=== PATIENT | female | born 1985 | race Caucasian/White ===

== ENCOUNTER 2021-05-23 16:13 | Emergency (ER) | payer OTHER, SELFPAY ==
[2021-05-23 16:45] VITALS: BP 158/102; PULSE 77; RESP 16; TEMP 36.9; O2SAT 97; BMI 22.3
[2021-05-23 16:50] LABS: Apearance,Urine Clear (Clear); Bilirubin,Urine Negative (Negative); Blood, Urine 1+ (Negative); Color,Urine Yellow (Yellow); Glucose,Urine (UA) Negative (Negative); Ketones,Urine Negative (Negative); Protein,Urine Negative (Negative); UTC Leukocyte Esterase,Urine Negative (Negative); UTC Nitrate,Urine Negative (Negative); Urobilinogen,Urine 1 EU/dl (0.2)
--- NOTE | 2021-05-23 17:36 | HMH.EDUTC ---
[facility] Disposition Clinical Impression: Dysuria, Status post Disposition: Home, Self-Care Condition on Discharge: Good Instructions: DI for Dysuria -- Adult Additional Instructions: Drink plenty of fluids. Lots of fluids. Notify your ob doctor about your urine results. Follow up with your primary care physician. Follow up with your MECHANICAL DEVELOPMENT ENGINEER doctor. You could call medical records here at [facility] and have them fax your urine results to your doctor in [place]. Their phone number is [phone]. GO TO THE ER FOR ANY WORSENING SYMPTOMS OR CONCERNS Referrals: Provider,Referral, [Primary Care Provider] - Time of Disposition: 17:48 Medical Decision Making - Medical Records Medical records reviewed: No: I reviewed the patient's medical records. - Hoang Inquiry Pt receiving controlled substance: No Vital Signs: 05/23/21 16:45 Temperature 98.5 F Temperature Source Oral Pulse Rate [Left] 77 Respiratory Rate 16 Blood Pressure [Right Arm] 158/102 H Blood Pressure Mean [Right Arm] 120 02 Sat by Pulse Oximetry 97 - Lab Data Lab results reviewed: Yes: I reviewed the patient's lab results. Lab Results 05/23/21 16:49: Urine Color Yellow, Urine Appearance Clear, Urine pH 7.0, Ur Specific Fifty Six 1.020, Urine Protein Negative, Urine Glucose (UA) Negative, Urine Ketones Negative, Urine Blood 1+, Urine Nitrate Negative, Urine Bilirubin Negative, Urine Urobilinogen 1, Ur Leukocyte Esterase Negative [facility] HPI - General Stated complaint: possible UTI Time Seen by Provider: 05/23/21 17:37 Mode of Arrival: Ambulatory Source of Information: Patient Limitations: No Limitations Description of Symptoms (Recalled from Triage Doc. by RN): pt c/o burning with urination. pt is 2 weeks post csection. HEENT Symptoms (Recalled from RN notes): No Resp Symptoms (Recalled from RN notes): No Skin Symptoms (Recalled from RN notes): No MS Symptoms (Recalled from RN notes): No Functional Status (Recalled from RN notes): na - History of Present Illness Provider Complaint: She is here with complaints of feeling like she might have a UTI. She had a 1 week ago. She has been doing good, but since this morning she has had some burning when she gets through urinating. She denies any fever/chills/back pain. She denies any other complaints. She had called her ob doctor and they had suggested for her to come have a urinalysis here instead of driving all the way back to [place] today and it turning out to be a UTI. - Related Data Allergies Allergy/AdvReac Type Severity Reaction Status Date / Time albuterol Allergy Verified 05/23/21 16:49 - Worker's Comp Is this a Worker's Comp case?: No [facility] History - Hepatitis A Screen Drug use history?: No High risk sexual behaviors?: No History of sexually transmitted infection?: No Currently employed?: No Childcare worker?: No Do you have indoor plumbing?: Yes Do you have electricity?: Yes Attestation statement:: This patient has been screened for Hepatitis A risk factors. I have reviewed the patient's past medical history: Yes ROS Obtained: Yes All systems reviewed & no additional complaints - Constitutional Constitutional: Denies chills, Denies fever(s), Denies poor appetite, Denies malaise - ENT Ears, Nose, Mouth, and Throat: Denies sore throat - Cardiovascular Cardiovascular: Denies chest pain - Respiratory Respiratory: Denies chest congestion, Denies cough, Denies dyspnea, Denies stridor, Denies wheezing - Gastrointestinal Gastrointestingal: Denies: abdominal pain, diarrhea, nausea, vomiting - Genitourinary Female Genitourinary: Reports dysuria, Denies urinary frequency, Denies urinary incontinence, Denies urinary hesitancy, Denies urinary urgency - Musculoskeletal Musculoskeletal: Denies back pain - Integumentary/Breasts Skin/Breast: Denies rash - Neurologic Neurologic: Denies tingling/numbness/b
[2021-05-23 17:52] VITALS: BP 143/97; PULSE 75; RESP 18; TEMP 36.9
== END 2021-05-23 17:57 | disposition home or self-care (01) ==
PROVIDERS: Emergency Provider Nurse Practitioner Family
DX: R30.0 Dysuria (principal)
CPT/HCPCS: 81003; 99202; G0463

== ENCOUNTER 2022-07-03 08:14 | Emergency (ER) | payer BC, SELFPAY ==
--- NOTE | 2022-07-03 09:15 | EXP.UTC ---
Discharge Plan Disposition Patient Disposition: Home, Self-Care Condition: Good Prescriptions Prescriptions: New azithromycin [Zithromax] 250 mg tablet 250 mg PO UD DOSE PK Qty: 6 0RF Rx Instructions: Take two (2) tablets today, then one (1) tablet days #2 thru #5 benzonatate [benzonatate] 100 mg capsule 100 mg PO TIDP PRN (Reason: Cough) Qty: 30 0RF methylprednisolone 4 mg Tablets,Dose Pack 4 mg PO DIRECTED Qty: 21 0RF Referrals Follow up/Referrals: Sandor Roe MD [Primary Care Provider] - See instructions Activity Restrictions/Add. Instructions Additional Instructions/Restrictions: Drink plenty of fluids. Take tylenol or ibuprofen for pain or fever. Take the medications as directed. Follow up with your regular doctor. GO TO THE ER FOR ANY WORSENING SYMPTOMS Clinical Impressions Clinical Impression: Sinusitis, Acute bronchitis, Viral syndrome Stand Alone Forms Stand Alone Forms: Work/School Release Instructions Patient Instructions: Acute Bronchitis, DI for Sinusitis, DI for Viral Syndrome Discharge ED Provider: Homero Reese [facility] General Stated complaint: Cough, sore throat, congestion, BA Time Seen by Provider: 07/03/22 09:15 History of Present Illness Provider Complaint: She states that for the past 3 days she has had a worsening sore throat, sinus congestion, bilateral ear pain and a cough. She has had a low grade fever and chills also. Related Data Previous Rx's Medication Instructions Recorded azithromycin 250 mg tablet 250 mg PO UD DOSE PK #6 tabs 07/03/22 (Zithromax) benzonatate 100 mg capsule 100 mg PO TIDP PRN Cough #30 caps 07/03/22 methylprednisolone 4 mg tablets in 4 mg PO DIRECTED #21 tabs 07/03/22 a dose pack Allergies Allergy/AdvReac Type Severity Reaction Status Date / Time albuterol Allergy Verified 05/23/21 16:49 [facility] Social History Smoking Status: Never smoker alcohol intake: never current occupational status: employed Travel in the last 8 weeks: None ROS Obtained: Yes All systems reviewed & no additional complaints except as documented Constitutional Constitutional: Reports chills and Reports fever(s) Eyes Eyes: Denies eye discharge ENT Ears, Nose, Mouth, and Throat: Reports as per HPI Cardiovascular Cardiovascular: Denies chest pain Respiratory Respiratory: Denies chest congestion and Reports cough Gastrointestinal Gastrointestingal: Reports nausea; Denies abdominal pain, constipation, cramping, diarrhea or vomiting Musculoskeletal Musculoskeletal: Denies arthralgias Integumentary/Breasts Skin/Breast: Denies rash Neurologic Neurologic: Denies paresthesias Physical Exam General General appearance: alert and in no apparent distress Head Head exam: atraumatic, normocephalic and normal inspection Eye Eye exam: Present normal appearance, PERRL and EOMI ENT ENT exam: Present normal exam, normal oropharynx, mucous membranes moist, TM's normal bilaterally and normal external ear exam Neck Neck exam: Present normal inspection, full ROM and trachea midline; Absent meningismus or lymphadenopathy Chest Chest inspection: Present normal inspection and symmetric chest wall rise; Absent tenderness Respiratory Respiratory exam: Present normal lung sounds bilaterally; Absent respiratory distress Cardiovascular Cardiovascular exam: Present regular rate and normal rhythm; Absent JVD Abdominal Exam Abdominal exam: Present soft and normal bowel sounds; Absent distention, tenderness or guarding Extremities Exam Extremities exam: Present normal inspection, full ROM and normal capillary refill; Absent calf tenderness Back Exam Back exam: Present normal inspection; Absent tenderness Neurological Exam Neurological exam: Present alert and oriented X3 Psychiatric Psychiatric exam: Present normal affect and normal mood Skin Skin exam: Present warm, dry, intact and
[2022-07-03 09:38] VITALS: BP 158/92; PULSE 84; RESP 18; TEMP 37.3; O2SAT 97; BMI 35.7
[2022-07-03 09:41] VITALS: BP 158/92; PULSE 84; RESP 18; TEMP 37.3
[2022-07-03 09:42] LABS: UTC Influenza A Antigen Negative (Negative); UTC Strep Screen (Rapid) Negative (Negative)
[2022-07-03 09:43] LABS: UTC Influenza B Antigen Negative (Negative)
[2022-07-03 09:49] LABS: Adenovirus,PCR Not Detected (NotDetected); Bordetella Pertussis Not Detected (NotDetected); Chlamydophila Pneumoniae, PCR Not Detected (NotDetected); Coronavirus 19, PCR Not Detected (NotDetected); Coronavirus 229E Not Detected (NotDetected); Coronavirus NL63 Not Detected (NotDetected); Coronavirus OC43 Not Detected (NotDetected); Coronovirus HKU1,PCR Not Detected (NotDetected); Human Metapneumovirus Not Detected (NotDetected); Influenza A, PCR Not Detected (NotDetected); Influenza AH1, 2009 Not Detected (NotDetected); Influenza AH1, PCR Not Detected (NotDetected); Influenza AH3,PCR Not Detected (NotDetected); Influenza B, PCR Not Detected (NotDetected); Mycoplasma Pneumoniae, PCR Not Detected (NotDetected); Parainfluenza 1, PCR Not Detected (NotDetected); Parainfluenza 2, PCR Not Detected (NotDetected); Parainfluenza 3, PCR Not Detected (NotDetected); Parainfluenza 4, PCR Not Detected (NotDetected); Respiratory Syncytial Virus Not Detected (NotDetected)
[2022-07-03 16:52] LABS: Rhinovirus/Enterovirus Detected (NotDetected)
== END 2022-07-03 09:46 | disposition home or self-care (01) ==
PROVIDERS: Emergency Provider Nurse Practitioner Family; PCP Family Medicine
DX: J20.9 Acute bronchitis, unspecified (principal); J32.9 Chronic sinusitis, unspecified; B34.9 Viral infection, unspecified
CPT/HCPCS: 87581; 87632; 87798; 87804; 87880; 99212; C9803; G0463; U0003; U0005

== ENCOUNTER → 2023-02-05 09:55 | Outpatient (POV) | payer BC, SELFPAY | PROVIDERS: Visit Provider Dermatology | DX: Z00.00 Encounter for general adult medical examination without abnormal findings (principal) ==

== ENCOUNTER → 2023-03-06 08:58 | Outpatient (CLI) | payer OTHER, SELFPAY ==
[2023-03-06 09:39] LABS: Iron 53 ug/dL (37-170)
[2023-03-06 09:48] LABS: Total Iron Binding Capacity 345 ug/dL (265-497)
[2023-03-06 10:15] LABS: Ferritin 86.6 ng/ml (6.24-137)
== END ==
PROVIDERS: Visit Provider Nurse Practitioner Family
DX: E83.10 Disorder of iron metabolism, unspecified (principal)
CPT/HCPCS: 36415; 82728; 83540; 83550; G0399

== ENCOUNTER → 2023-03-19 11:15 | Outpatient (CLI) | payer OTHER, SELFPAY | PROVIDERS: PCP Nurse Practitioner; Visit Provider Nurse Practitioner | DX: R30.0 Dysuria (principal); B96.29 Other Escherichia coli [E. coli] as the cause of diseases classified elsewhere; B96.89 Other specified bacterial agents as the cause of diseases classified elsewhere | CPT/HCPCS: 87086; 87088; 87186 ==

== ENCOUNTER 2023-04-14 13:35 | Emergency (ER) | payer OTHER, SELFPAY ==
[2023-04-14 13:37] VITALS: BP 128/85; PULSE 79; RESP 18; TEMP 37.1; O2SAT 98; BMI 48.2
--- NOTE | 2023-04-14 14:40 | XR_ITS ---
PROCEDURE INFORMATION: Exam: XR Right Ankle Exam date and time: 04/14/2023 2:49 PM Age: 38 years old Clinical indication: Injury or trauma; Fall; Blunt trauma; Ankle; Right TECHNIQUE: Imaging protocol: Radiologic exam of the right ankle. Views: 3 or more views. COMPARISON: No relevant prior studies available. FINDINGS: Bones/joints: Osseous structures are intact. No fracture or malalignment. Visualized joint surfaces are preserved. Soft tissues: Unremarkable. IMPRESSION: Negative exam. No acute bony abnormalities.
--- NOTE | 2023-04-14 14:41 | PC.NURSE ---
Rounded on patient in lobby
--- NOTE | 2023-04-14 15:56 | HMH.EDGENADL ---
Discharge Plan Disposition Patient Disposition: Home, Self-Care Condition: Good Prescriptions Prescriptions: No Action Galzin 50 mg (zinc) capsule 50 mg PO DAILY PNV #[id number] 30 mg iron-10 mg iron-1 mg capsule See Rx Instructions PO .COMPLEX Rx Instructions: one a day orally; cholecalciferol (vitamin D3) 125 mcg (5,000 unit) capsule 125 mcg PO DAILY ascorbic acid (vitamin C) 1,000 mg capsule 1 g PO DAILY fluoxetine 10 mg capsule 10 mg PO DAILY bupropion HCl 300 mg tablet extended release 24 hr 300 mg PO DAILY Patient Comments: TAKE 1 TABLET BY MOUTH EVERY DAY IN THE MORNING FOR 30 DAYS Flonase Sensimist 27.5 mcg/actuation spray,suspension 2 spray intranasal DAILY Rx Instructions: into each nostril Zyrtec 10 mg capsule 10 mg PO DAILY PRN fluoxetine [Prozac] 20 mg capsule 10 mg PO DAILY Referrals Follow up/Referrals: Provider,Referral, MD [Primary Care Provider] - See instructions Clinical Impressions Clinical Impression: Ankle sprain Qualifiers: Encounter type: initial encounter Involved ligament of ankle: unspecified ligament Laterality: right Qualified Code(s): S93.401A - Sprain of unspecified ligament of right ankle, initial encounter Instructions Patient Instructions: DI for Ankle Sprain Discharge ED Provider: Sacha Sheihk Adult HPI General Chief complaint: Extremity Injury, Lower Stated complaint: AO [id number] right ankle injury,home Time Seen by Provider: 04/14/23 15:56 Mode of Arrival: Wheelchair Source of Information: Patient Limitations: No Limitations Description of Symptoms (Recalled from ER Triage Doc. by RN): Presents ot ED with c/o right ankle pain since this morning after sustaining a fall @ approx 1130. Patient reports taking 400mg of Ibuprofen @ 1145 with no relief. Notable swelling to ankle +PMS History of Present Illness HPI narrative: Patient presents for evaluation of acute onset ankle pain, moderate in severity, nonradiating, after mechanical fall from standing, no injury elsewhere, previous therapies include ibuprofen. Patient has had difficulty bearing weight since then. No distal numbness or tingling. No pain elsewhere. No chronic medical issues or other daily medications. Injury is closed. Related Data Home Medications Medication Instructions Recorded Confirmed ascorbic acid (vitamin C) 1,000 mg 1 g PO DAILY 02/21/23 04/04/23 capsule cholecalciferol (vitamin D3) 125 125 mcg PO DAILY 02/21/23 04/04/23 mcg (5,000 unit) capsule vitamin#30 30 mg iron-10 See Rx Instructions PO .COMPLEX 02/21/23 04/04/23 mg iron-folic acid 1 mg-omg3 capsule zinc acetate 50 mg (zinc) capsule 50 mg PO DAILY 02/21/23 04/04/23 (Galzin) cetirizine 10 mg capsule (Zyrtec) 10 mg PO DAILY PRN 03/19/23 04/04/23 fluticasone furoate 27.5 2 spray intranasal DAILY 03/19/23 04/04/23 mcg/actuation nasal spray,suspension (Flonase Sensimist) bupropion HCl 300 mg 24 hr tablet, 300 mg PO DAILY 04/04/23 04/04/23 extended release fluoxetine 10 mg capsule 10 mg PO DAILY 04/04/23 04/04/23 fluoxetine 20 mg capsule (Prozac) 10 mg PO DAILY 04/04/23 04/04/23 Allergies Allergy/AdvReac Type Severity Reaction Status Date / Time albuterol Allergy Verified 04/04/23 14:02 [facility] Disclaimer: The information contained in this section may have been updated after the patient was seen, as this information can be updated by other users. Family History Other Alcoholism Cancer Thyroid disorder Social History Smoking Status: Never smoker alcohol intake: never substance use type: denies use current occupational status: unemployed Travel in the last 8 weeks: None household members: spouse housing: house marital status: ROS Obtained
[2023-04-14 16:15] VITALS: BP 128/85; PULSE 79; RESP 18; TEMP 37.1; O2SAT 98
== END 2023-04-14 16:15 | disposition home or self-care (01) ==
PROVIDERS: Emergency Provider Emergency Medicine
DX: S93.401A Sprain of unspecified ligament of right ankle, initial encounter (principal); W18.30XA Fall on same level, unspecified, initial encounter
CPT/HCPCS: 73610; 99283

== ENCOUNTER → 2023-06-12 15:10 | Outpatient (CLI) | payer OTHER, SELFPAY ==
[2023-06-12 18:48] LABS: Coronavirus 19, PCR Not Detected (NotDetected); Influenza A, PCR Not Detected (NotDetected); Influenza B, PCR Not Detected (NotDetected)
[2023-06-12 18:55] LABS: Basophils % 0.6 % (0.1-2.0); Eosinophils # 0.1 K/mm3 (0.0-0.4); Eosinophils % 1.8 % (0.1-12.0); Hemoglobin 13.4 g/dL (12.2-16.2); Lymphocytes # 2.6 K/mm3 (0.7-4.5); Lymphocytes % 40.5 % (10-50); Mean Corpuscular HGB Conc 34.4 g/dL (31.8-35.4); Mean Corpuscular Hemoglobin 30.4 pg (27.0-31.2); Mean Corpuscular Volume 88.2 fl (81-99); Mean Platelet Volume 9.8 fl (7.4-10.4); Monocytes # 0.3 K/mm3 (0.1-1.0); Monocytes % 4.7 % (1.7-9.3); Neutrophils # 3.4 K/mm3 (1.8-7.8); Neutrophils % 52.4 % (37.0-80.0); Platelet Count 166 K/mm3 (142-424); Red Blood Count 4.42 M/mm3 (4.20-5.40); Red Cell Distribution Width 14.9 % (11.5-17.5); White Blood Count 6.5 K/mm3 (4.8-10.8)
[2023-06-12 19:25] LABS: Anion Gap 11.3 mEq/L (5-15); Blood Urea Nitrogen 13 mg/dl (7-17); Calcium 9.1 mg/dl (8.4-10.2); Carbon Dioxide 27 mmol/L (22.0-30.0); Chloride 104 mmol/L (98-107); Estimated Glomerular Filt Rate 81 ml/min (>60); GFR (African American) 98 ML/MIN (>60); Glucose 98 mg/dl (74-100); Potassium 4.3 mmoL/L (3.5-5.1); Sodium 138 mmol/L (136-145)
== END ==
PROVIDERS: PCP Nurse Practitioner; Visit Provider Nurse Practitioner
DX: J06.9 Acute upper respiratory infection, unspecified (principal)
CPT/HCPCS: 80048; 85025; 87636

== ENCOUNTER 2025-03-30 12:52 | Outpatient (CLI) | payer OTHER, SELFPAY ==
--- OUTSIDE RECORDS SUMMARY | 2016-07-13 12:22 | XMS_ITS | Encounter Summary ---
Author Organization [facility] Address [address] [id number] Care Team Providers Care Trailer Body Assembler Name Role Phone Moon Jaquez MD Primary Care Provider [phone] Reason for Referral * Hospital - Outpatient (Routine) - Closed Specialty Diagnoses / Procedures Referred By Mahsaac t Referred To Contact Sleep Medicine Diagnoses Obstructive sleep apnea, adult Snoring Procedures Home Sleep Study David Feng MD [address] [place] [address] Phone: tel: fax: David Feng MD [address] [place] [address] Phone: tel: fax: Referral ID Status Reason Start Date Expiration Date Visits Re quested Visits Authorized [id number] Closed 07/13/2016 07/13/2017 1 1 Reason for Visit * Hospital - Outpatient (Routine) - Closed Specialty Diagnoses / Procedures Referred By Contac t Referred To Contact Sleep Medicine Diagnoses Obstructive sleep apnea, adult Snoring Procedures Home Sleep Study David Feng MD [address] [place] [address] Phone: tel: fax: David Feng MD [address] [place] [address] Phone: tel: fax: Referral ID Status Reason Start Date Expiration Date Visits Re quested Visits Authorized [id number] Closed 07/13/2016 07/13/2017 1 1 Encounter Details Date Type Department Care Team (Latest Contact Info) Description 07/13/2016 11:22 AM EST Hospital Encounter [facility] SLEEP [facility] [address] [facility] [address] [place] [id number] David Feng MD [address] [facility] [address] [place], [place] [id number] Obstructive sleep apnea, adult; Snoring Social History Tobacco Use Types Packs/Day Years Used Date Smoking Tobacco: Never Smokeless Tobacco: Never Comments:Is not around secon dhand smoke in house or car Alcohol Use Standard Drinks/Week Comments Not Currently 0 (1 standard drink = 0.6 oz pur e alcohol) Monument Depression Scale Answer Date Recorded [place] Depression Scale Total 2 05/18/2021 The thought of harming myself has occurred to me . 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 PREADMISSION T [address] [place] [address] 06/02/2025 12:00 PM EDT Hospital Encounter [facility] LABOR DELIVERY [address] [place] [address] Ilene Schultz MD [address] [facility] [address] [place] [address] 06/02/2025 12:00 PM EDT - 06/02/2025 1:00 PM EDT Surgery [facility]OR DELIVERY [address] [place] [address] Ilene Schultz MD [address] [place] [address] SECTION REPEAT WITH SALPINGECTOMY Scheduled Procedures Name Priority Associated Diagnoses Date/Ti me SECTION REPEAT WITH SALPINGECTOMY 06/02/2025 12:00 PM EDT documented as of this encounter Procedures Procedure Name Priority Date/Time Associated Diagnosis Comments WATCHPAT Routine 07/16/2016 8:15 AM EST Obstructive sleep apnea, adult Snoring documented in this encounter Results * WATCHPAT (07/16/2016 8:15 AM EST) Narrative David Feng MD - 08/06/2016 4:27 PM EST Home sleep test with watch Pat device report date of study: 07/14/2016 Patient: Fabiola Guerra date of : 1985 Referring: Dr. Moon Jaquez Clinical information patient is a 31-year-old female with a history of snoring and nonrestorative sleep. She has noted snoring. She occasionally kicks and jerks her legs at night. Blood pressure is 152/98 pulse 77 respirations 16 height 65 inches weight 324 pounds body mass index 53.9 she was morbidly obese she had nasal airway narrowing and Mallampati class II anatomy with significant tonsillar hypertrophy Methods: Patient had home sleep test with watch Pat device that measured peripheral arterial tonometry measured pulse and oxygen saturation measured activity and judged body position. Snoring was recorded. It was scored using standard techniques. Findings: Patient had a study time of 7 hours 45 minutes and sleep time of 6 hours 23 minutes. She did show evidence of REM sleep. Overall she had an AHI of 6.3. This is consistent with mild obstructive sleep apnea. She had oxygen desaturations only to 89%. Her mean pulse rate was 64. She had some snoring noted throughout the night. She slept supine the entire night. Assessment axis A: #1 mild obstructive sleep apnea [place] B: Home sleep test with watch Pat device [place] C: #1 morbid obesity #2 tonsillar hypertrophy #3 hypertension #4 history of leg movements Recommendations: #1 would continue consider a trial of CPAP such as AutoSet with an 8 cm minimum an 18 cm maximum #2 would encourage weight loss #3 would encourage patient avoid alcohol and sedatives close to bedtime #4 would encourage lateral position sleep #5 could consider an oral appliance in combination with weight loss and lateral position sleep #6 could consider surgical therapy if CPAP for oral appliances or not tolerated. #7 may need to consider medical therapy for periodic limb movement disorder. Follow-up: She is to follow-up in sleep clinic and she is to follow-up with Dr. Gisele Feng MD [facility] Sleep Medicine Pulmonary and Critical Care Medicine David Feng MD SLEEP CENTER ORDERABLES Final Re sult documented in this encounter Visit Diagnoses Diagnosis Obstructive sleep apnea, adult Snoring Other dyspnea and respiratory abnormality documented in this encounter Additional Health Concerns Infection Onset Date Last Indicated Resolved Time COVID Screen (preop/placement) 05/15/2021 05/15/2021 05/15/2021 4:02 PM EDT documented as of this encounter Care Teams Trailer Body Assembler Relationship Specialty Start Date End Date Moon Jaquez MD [address] [place] [address] PCP - General 06/10/15 04/02/21 documented as of this encounter
--- OUTSIDE RECORDS SUMMARY | 2021-12-05 05:00 | XMS_ITS | Continuity of Care Document ---
Author Organization [facility] o Address [address] [place] [address] Phone Care Team Providers Care Client Account Manager Name Role Phone Cheng Oakes MD Unavailable Unavailable Medications Medication Instructions Dosage Effective Dates (start - stop) Status Comments Medrol (Adan) 4 mg tablets in a dose pack take by Oral route once follow instructions on box Not Available - Active Procedures Procedure Date [facility] [place] X-ray exam lwr spine, min 4 views Advance Directives Directive Yes / No Effective Date File Name No Information Encounters Encounter Description Practice Location Reason(s) For Visit Diagnoses Date Provider Providers Copied on Encounter Office/outpat ient visit[place], [facility] [place], [address] [facility] [place], [address], tel:[phone] [facility] Segmental and somatic dysfunction of sacral region 2 Champ Anand. Jared E [facility] [place], [id number] , [place]. [phone] Referring Provider: Cheng Serrato, [place], [address] . tel:[phone] Family History Family Member Type Diagnosis Age At Onset Mother Problem (finding) Hypertension Brother Problem (finding) Depression Mother Problem (finding) Cancer Mother Problem (finding) Depression Payers Payer name Insurance type Covered libertarian ID Kyra loredo(s) UMR - [id number] Social History Type Description Quantity Date Captured [...]
--- OUTSIDE RECORDS SUMMARY | 2025-03-19 09:20 | XMS_ITS | Encounter Summary ---
[facility] Organization [facility] Address [address] [place] [address] Care Team Providers Care Appraisal Specialist Name Role Phone Provider, No Known Primary Care Provider Unavail able Encounter Details Date Type Department Care Team (Late st Contact Info) Description 03/19/2025 9:20 AM EDT Lab [facility] [address] [place] [address] 24 weeks gestation of Social History Tobacco Use Types Packs/Day Years Used Date Smoking Tobacco: Never Smokeless Tobacco: Never Comments:Is not around secon dhand smoke in house or car Alcohol Use Standard Drinks/Week Comments Not Currently 0 (1 standard drink = 0.6 oz pur e alcohol) Central Depression Scale Answer Date Recorded Central Depression Scale Total 2 05/18/2021 The thought of harming myself has occurred to me . 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 on file Not on file Not o n file documented as of this encounter Plan of Treatment Upcoming Encounters Date Type Department Care Team (Late st Contact Info) Description 05/31/2025 3:30 PM EDT [facility] [address] [place] [address] 06/02/2025 12:00 PM EDT Hospital Encounter [facility] [address] [facility] [place] [id number] Ilene Schultz MD [address] [address] 06/02/2025 12:00 PM EDT - 06/02/2025 1:00 PM EDT Surgery [facility] [address] [place] [address] Ilene Schultz MD [id number] [address] SECTION REPEAT WITH SALPINGECTOMY Scheduled Procedures Name Priority Associated Diagnoses Date/Ti me SECTION REPEAT WITH SALPINGECTOMY 06/02/2025 12:00 PM EDT documented as of this encounter Procedures Procedure Name Priority Date/Time Associated Diagnosis Comments TREPONEMA PALLIDUM AB W/REFLEX RPR Routine 03/19/2025 10:27 AM EDT 24 weeks gestation of GLUCOSE, POST 50 GM GLUCOLA Routine 03/19/2025 10:27 AM EDT 24 weeks gestation of CBC (NO DIFF) STAT 03/19/2025 10:27 AM EDT 24 weeks gestation of ANTIBODY SCREEN Routine 03/19/2025 10:27 AM EDT 24 weeks gestation of documented in this encounter Results * Treponema pallidum AB w/Reflex RPR (03/19/2025 10:27 AM EDT) Treponemal AB Total Non-Reacti ve Non-React mahin 03/19/2025 2:43 PM EDT [facility] Blood Venipuncture / Unknown 03/19/2025 10:27 AM EDT 03/19/2025 10:33 AM EDT Narrative [facility] - 03/19/2025 2:43 PM EDT Reactive results will reflex RPR testing. Leora Guevara Librado [employer] LAB BLOOD ORDERABLES Final Result [facility]
[address] [place] [address], * (ABNORMAL) CBC (No Diff) (03/19/2025 10:27 AM EDT) WBC 7.76 3.40 - 10.80 10*3/mm3 03/19/2025 10:44 AM EDT [facility] RBC 4.02 3.77 - 5.28 10*6/mm3 03/19/2025 10:44 AM EDT [facility] Hemoglobin 11.7(L) 12.0 - 15.9 g/dL 03/19/2025 10:44 AM EDT [facility] Hematocrit 34.8 34.0 - 46.6 % 03/19/2025 10:44 AM EDT [facility] MCV 86.6 79.0 - 97.0 fL 03/19/2025 10:44 AM EDT [facility] MCH 29.1 26.6 - 33.0 pg 03/19/2025 10:44 AM EDT [facility] MCHC 33.6 31.5 - 35.7 g/dL 03/19/2025 10:44 AM EDT [facility] RDW 13.3 12.3 - 15.4 % 03/19/2025 10:44 AM EDT [facility] RDW-SD 41.9 37.0 - 54.0 fl 03/19/2025 10:44 AM EDT [facility] MPV 10.7 6.0 - 12.0 fL 03/19/2025 10:44 AM EDT [facility] Platelets 147 140 - 450 10*3/mm3 03/19/2025 10:44 AM EDT [facility] Blood Venipuncture / Unknown 03/19/2025 10:27 AM EDT 03/19/2025 10:33 AM EDT Leora Pavon [employer] LAB BLOOD ORDERABLES Final Result Performing Organization Address City/[facility]/ZIP Co de Phone Number [facility]
[address] [place] [address], [place] [phone] * Antibody Screen (03/19/2025 10:27 AM EDT) Antibody Screen Negative 03/19/2025 11:28 AM EDT [facility] Blood Venipuncture / Unknown 03/19/2025 10:27 AM EDT 03/19/2025 10:33 AM EDT Leora Pavon [employer] BLOOD BANK TEST ORDERABLES Final Result Performing Organization Address [facility] Co de Phone Number [facility]
[address] [place] [address], [place] [phone] * Glucose, Post 50 Gm Glucola (03/19/2025 10:27 AM EDT) [facility] Gestational GCT 125 65 - 139 mg/dL 03/19/2025 11:05 AM EDT [facility] Blood Venipuncture / Unknown 03/19/2025 10:27 AM EDT 03/19/2025 10:33 AM EDT us Leora Pavon [employer] LAB BLOOD ORDERABLES Final Result Performing Organization Address City/[facility] Co de Phone Number [facility]
[address] [place] [address], [place] [phone] documented in this encounter Visit Diagnoses Diagnosis 24 weeks gestation of documented in this encounter Care Teams Appraisal Specialist Relationship Specialty Start Date End Date Provider, [place] [address] PCP - General 04/03/21 documented as of this encounter
--- OUTSIDE RECORDS SUMMARY | 2025-03-30 12:56 | XMS_ITS | Clinical Summary ---
Author Organization [facility] Address [address] [place] [address] Care Team Providers Care Manager Behavioral Name Role Phone Unavailable Primary Care Provider Unavailabl e Social History Tobacco Use Types Packs/Day Years Used Date Smoking Tobacco: Never Assessed Comments Unknown Sex and Gender Information Value Date Recorded Sex Assigned at Not on file Legal Sex Female 8:49 PM EDT Gender Identity Not on file Sexual Orientation Not on file Last Filed Vital Signs Vital Sign Reading Time Taken Comments Blood Pressure - - Pulse - - Temperature - - Respiratory Rate - - Oxygen Saturation - - Inhaled Oxygen Concentration - - Weight 120 kg (264 lb 6.4 oz) 12/31/2008 2:17 PM EDT Height 165.1 cm (5' 5 ) 12/31/2008 2:17 PM EDT Body Mass Index 44 12/31/2008 2:17 PM EDT Plan of Treatment Health Maintenance Due Date Last Done Comments [facility]-Depression Screening 1987 [facility]-Infant/Child/Adol SDOH Screenings 1987 [facility]-Varicella Vaccines (1 of 2 - 13+ 2-dose series) 02/03/2000 HPV Vaccines (1 - 3-dose series) 2002 [facility]- SDOH Screenings 2005 [facility]-Adult SDOH Screenings 2005 [facility]-DTaP,Tdap,and Td Vaccines (1 - Tdap) 2006 [facility]-Hepatitis B Vaccines (1 of 3 - 19+ 3-dose series) 2006 [facility]-Pap Smear 01/01/2012 12/31/2008, 12/01, 10/18/2006, Additional history exists [facility]-Cervical Cancer Screening 2017 [facility]-HPV/Cotest 2017 12/31/2008, 12/01, 10/18/2006, Additional history exists TAA-OHDEU-07 Vaccine ( season) 2024 [facility]-Influenza Vaccine (#1) 2025 [facility]-Zoster Vaccines (1 of 2) 2037 [facility]-HIB Vaccines Aged Out No longer e ligible based on patient's age to complete this topic [facility]-Hepatitis A Vaccines Aged Out No longer eligible based on patient's age to complete this topic [facility]-IPV Vaccines Aged Out No longer e ligible based on patient's age to complete this topic [facility]-Pneumococcal Vaccine: Pediatrics (0 to 5 Years) and At-Risk Patients (6 to 49 Years) Aged Out No longer eligible based on patient's age to complete this topic [facility]-Rotavirus Vaccines Aged Out No lo nger eligible based on patient's age to complete this topic Procedures Procedure Name Priority Date/Time Associated Diagnosis Comments CYTO DATA CONVERSION Routine 12/31/2008 12:00 AM EDT from Last 3 Months or Most Recently Relevant to Health Maintenance Results * Cytology (12/31/2008 12:00 AM EDT) 12/31/2008 01/03/2009 8:5 3 AM EDT Narrative [facility] - 01/05/2009 4:27 PM EDT [facility] MR #: [id number] [facility] FABIOLA CHAVEZ [place], [place] [address] 1985 (Age: 23) FW Collect Date: 12/31/2008 00:00 Receipt Date: 01/03/2009 08:53 Page 1 DEPARTMENT OF PATHOLOGY AND LABORATORY MEDICINE CYTOPATHOLOGY REPORT Email: [email or web address] [id number] ATTENDING MD/Practitioner: Maira Velasco II, MD Service: [facility] Location: [facility] Reported: 01/05/2009 16:27 Collected: 12/31/2008 00:00 INTERPRETATION A. THIN PREP (CERVICAL/VAGINAL): NEGATIVE FOR INTRAEPITHELIAL LESION OR MALIGNANCY. FUNGAL ORGANISMS CONSISTENT WITH YAS SPECIES. SATISFACTORY FOR EVALUATION; ENDOCERVICAL/ TRANSFORMATION ZONE COMPONENT PRESENT. Electronically Signed Out By S.M. Aki, CT(ASCP) NICANOR Ramirez(ASCP) Cervical cytology is a screening test primarily for squamous cancers and precursors and has associated false negative and positive results. New technologies such as liquid based sampling may decrease but will not eliminate all false negative results. Regular screening and follow-up of unexplained clinical signs and symptoms are recommended to minimize false negative results. Please see the ASCCP website (www.asccp.org) for followup recommendations. If HPV testing was requested, correlation with the results is suggested (please call Microbiology at [phone] for results). CLINICAL INFORMATION: Menstrual History: Cyclic Date of Last Menstrual Period: 12/22/08 Contraceptive History: control pills SPECIMEN DESCRIPTION: A: THIN PREP (CERVICAL/VAGINAL) THIN PREP PROCESS CELLULAR ENHANCEMENT ICD: 112.1 CANDIDIASIS OF VULVA AND VAGINA V76.2 CERVIX, SPECIAL SCREENING FOR MALIGNANT NEOPLASM F: A; [id number] [facility] SNOMED CODES: A; [id number] In cases where a pathologist has signed out the report, the service has been rendered in part by a resident. The signing pathologist has performed and is responsible for the reported pathologic evaluation. us Terrence Velasco MD LAB PATHOLOGY ORDERABLES Final Result [employer] from Last 3 Months or Most Recently Relevant to Health Maintenance
--- OUTSIDE RECORDS SUMMARY | 2025-03-30 12:56 | XMS_ITS | Clinical Summary ---
Author Organization [facility] Address [address] [place] [address] Care Team Providers Care Substation Operator Helper Name Role Phone Provider, No Known Primary Care Provider Unavail able Allergies Active Allergy Reactions Criticality Noted Date Comments Albuterol Sulfate Other (See Comments) High 03/15/20 16 Made her face swell Medications Vit-Fe Fumarate-FA ( 27-1) 27-1 MG tablet tablet Take 1 tablet by mouth Daily. Active Probiotic Product (Risaquad-2) capsule capsule Take 1 capsule by mouth Daily. Active Docosahexaenoic Acid (DHA ALGAL-900 PO) Take 900 mg by mouth Daily. Active loratadine (CLARITIN) 10 MG tablet Take 10 mg by mouth Daily. Active calcium carbonate (TUMS) 500 MG chewable tablet Chew 1 tablet Daily As Needed for Indigestion or Heartburn. Active ferrous sulfate 324 (65 Fe) MG tablet delayed-release EC tablet Take 1 tablet by mouth 2 (Two) Times a Day With Meals. 90 tablet 05/20/2021 3:11 PM EDT 1 Active acetaminophen (TYLENOL) 325 MG tablet Take 2 tablets by mouth Every 6 (Six) Hours. 1 Active docusate sodium 100 MG capsule Take 1 capsule by mouth 2 (Two) Times a Day As Needed for Constipation. 30 capsule 1 05/20/2021 3:11 PM EDT 1 Active ibuprofen (ADVIL,MOTRIN) 600 MG tablet Take 1 tablet by mouth Every 6 (Six) Hours As Needed for Mild Pain . 60 tablet 05/20/2021 3:11 PM EDT 1 Active lanolin cream Apply topically to the appropriate area as directed Every 1 (One) Hour As Needed for Dry Skin (nipple pain). Active simethicone (MYLICON) 80 MG chewable tablet Chew 1 tablet 4 (Four) Times a Day As Needed for Flatulence. 30 tablet 1 05/20/2021 3:11 PM EDT Active Active Problems Problem Noted Date Diagnosed Date Maternal care for breech presentation, single ge station 05/17/2021 S/P section 05/17/2021 Obstructive sleep apnea, adult 03/15/2016 Periodic limb movement disorder 03/15/2016 Restless legs syndrome (RLS) 03/15/2016 Morbid obesity 03/15/2016 Polycystic ovarian syndrome 03/15/2016 Hypertension 03/15/2016 Anxiety 03/15/2016 Snoring Comments Yes Resolved Problems Problem Noted Date Diagnosed Date Resolved Date Term 05/13/2021 05/17/2021 04/03/2021 05/19/2021 Encounters Date Type Department Care Team Description 03/19/2025 9:20 AM EDT Lab [facility] [address] [place] [address] 24 weeks gestation of 03/19/2025 Travel 01/21/2025 2:35 PM EDT Lab [facility] [address] [place] [address] 20 weeks gestation of 01/21/2025 Travel from Last 3 Months Immunizations Immunization Administration Dates Next Due Fluzone (or Fluarix & Flulaval for VFC) >6mos Family History Medical History Relation Name Comments No Known Problems Father Throat cancer Maternal Grandfather Breast cancer Maternal Grandmother Breast cancer Mother Cancer Mother Lung/Breast Depression Mother Hypertension Mother Lung cancer Mother Sleep apnea Mother Thyroid cancer Mother Stroke Paternal Grandfather Ovarian cancer Neg Hx Relation Name Status Comments Brother Alive Father Maternal Grandfather Maternal Grandmother Mother Alive Paternal Grandfather Paternal Grandmother Sister Alive Social History Tobacco Use Types Packs/Day Years Used Date Smoking Tobacco: Never Smokeless Tobacco: Never Tobacco Cessation:Counseling Given: Yes Comments:Is not around secondhand smoke in house or car Alcohol Use Standard Drinks/Week Comments Not Currently 0 (1 standard drink = 0.6 oz pur e alcohol) [place] Depression Scale Answer Date Recorded [place]oss Depression Scale Total 2 05/18/2021 The thought of harming myself has occurred to me . 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 Not on file Not o n file Last Filed Vital Signs Vital Sign Reading Time Taken Comments Blood Pressure 139/73 05/20/2021 8:19 AM EDT Pulse 85 05/20/2021 8:19 AM EDT Temperature 36.6 C (97.8 F) 05/20/2021 8:19 AM EDT Respiratory Rate 18 05/20/2021 8:19 AM EDT Oxygen Saturation 98% 05/17/2021 4:52 PM EDT Inhaled Oxygen Concentration - - Weight 133 kg (293 lb 6.9 oz) 05/15/2021 10:43 A M EDT Height 163.8 cm (5' 4.5 ) 05/15/2021 10:43 AM ED T Body Mass Index 49.59 05/15/2021 10:43 AM EDT Plan of Treatment Upcoming Encounters Date Type Department Care Team (Late st Contact Info) Description 05/31/2025 3:30 PM EDT Pre-Admission Testing [facility] [address] [place] [address] 06/02/2025 12:00 PM EDT Hospital Encounter [facility] [address] [place] [address] Ilene Schultz MD [address] [place] [address] 06/02/2025 12:00 PM EDT - 06/02/2025 1:00 PM EDT Surgery [facility] [address] [place] [address] Ilene Schultz MD [address] [facility] [address] [place] [address] SECTION REPEAT WITH SALPINGECTOMY Scheduled Procedures Name Priority Associated Diagnoses Date/Ti me SECTION REPEAT WITH SALPINGECTOMY 06/02/2025 12:00 PM EDT Health Maintenance Due Date Last Done Comments Annual Gynecologic Pelvic an d Breast Exam 1987 TDAP/TD VACCINES (1 - Tdap) 2006 ANNUAL PHYSICAL 04/04/2017 COVID-19 Vaccine (2 - 2023-2 5 season) 2024 06/08/2022 INFLUENZA VACCINE 06/02/2025 06/08/2022, 05/20/2021 RSV Vaccine - Adults (1 - 1-dose 75+ series) 2062 HEPATITIS C SCREENING Completed 11/13/2024 , 11/09/2020, 09/03/2018 Pneumococcal Vaccine 0-49 Aged Out No longer eligible based on patient's age to complete this topic Procedures Procedure Name Priority Date/Time Associated Diagnosis Comments ANTIBODY SCREEN Routine 03/19/2025 10:27 AM EDT 24 weeks gestation of POCT POST GLUCOSE TOLERANCE Routine 03/19/2025 10:27 AM EDT 24 weeks gestation of TREPONEMA PALLIDUM AB W/REFLEX RPR Routine 03/19/2025 10:27 AM EDT 24 weeks gestation of CBC (NO DIFF) STAT 03/19/2025 10:27 AM EDT 24 weeks gestation of GLUCOSE, POST 50 GM GLUCOLA Routine 03/19/2025 10:27 AM EDT 24 weeks gestation of VITAMIN D,25-HYDROXY Routine 01/21/2025 2:37 PM EDT 20 weeks gestation of TSH Routine 01/21/2025 2:37 PM EDT 20 weeks gestation of CBC (NO DIFF) Routine 01/21/2025 2:37 PM EDT 20 weeks gestation of HEPATITIS C ANTIBODY Routine 11/13/2024 10:51 AM EDT care, subsequent , first trimester from Last 3 Months or Most Recently Relevant to Health Maintenance Results * Treponema pallidum AB w/Reflex RPR (03/19/2025 10:27 AM EDT) Pathologist [facility] [place] Treponemal AB Total Non-Reacti ve Non-React mahin 03/19/2025 2:43 PM EDT [facility] Blood Venipuncture / Unknown 03/19/2025 10:27 AM EDT 03/19/2025 10:33 AM EDT Narrative [facility] - 03/19/2025 2:43 PM EDT Reactive results will reflex RPR testing. Leora Pavon APRN LAB BLOOD ORDERABLES Final Result [facility]
[address] [place] [address], [place] [phone] * POCT Post Glucose Tolerance (03/19/2025 10:27 AM EDT) Blood Venipuncture / Unknown 03/19/2025 10:27 AM EDT 03/19/2025 10:33 AM EDT Leora Pavon APRN POINT OF CARE TEST ORDERAB LES Final Result [facility]
[address] [place] [address], [place] [phone] * Glucose, Post 50 Gm Glucola (03/19/2025 10:27 AM EDT) Pathologist [facility] [place] Gestational GCT 125 65 - 139 mg/dL 03/19/2025 11:05 AM EDT [facility] Blood Venipuncture / Unknown 03/19/2025 10:27 AM EDT 03/19/2025 10:33 AM EDT us Leora Pavon EMERGENCY DISPATCHER LAB BLOOD ORDERABLES Final Result [facility]
[address] [phone], * (ABNORMAL) CBC (No Diff) (03/19/2025 10:27 AM EDT) Only the most recent of2 resultswithin the time period is included. WBC 7.76 3.40 - 10.80 10*3/mm3 03/19/2025 10:44 AM EDT [facility] RBC 4.02 3.77 - 5.28 10*6/mm3 03/19/2025 10:44 AM EDT [facility] Hemoglobin 11.7(L) 12.0 - 15.9 g/dL 03/19/2025 10:44 AM EDT [facility] Hematocrit 34.8 34.0 - 46.6 % 03/19/2025 10:44 AM EDT [facility] MCV 86.6 79.0 - 97.0 fL 03/19/2025 10:44 AM EDT [facility] MCH 29.1 26.6 - 33.0 pg 03/19/2025 10:44 AM EDT [facility] MCHC 33.6 31.5 - 35.7 g/dL 03/19/2025 10:44 AM EDT [facility] RDW 13.3 12.3 - 15.4 % 03/19/2025 10:44 AM EDT [facility] RDW-SD 41.9 37.0 - 54.0 fl 03/19/2025 10:44 AM EDT [facility] MPV 10.7 6.0 - 12.0 fL 03/19/2025 10:44 AM EDT [facility] Platelets 147 140 - 450 10*3/mm3 03/19/2025 10:44 AM EDT [facility] Blood Venipuncture / Unknown 03/19/2025 10:27 AM EDT 03/19/2025 10:33 AM EDT Leora Pavon APRN LAB BLOOD ORDERABLES Final Result [facility]
[address] [place] [address], * Antibody Screen (03/19/2025 10:27 AM EDT) Pathologist [facility] [place] Antibody Screen Negative 03/19/2025 11:28 AM EDT [facility] Blood Venipuncture / Unknown 03/19/2025 10:27 AM EDT 03/19/2025 10:33 AM EDT Leora Pavon APRN BLOOD BANK TEST ORDERABLES Final Result Performing Organization Address [facility] Co de Phone Number [facility]
[address] [place] [address], * Vitamin D 25 Hydroxy (01/21/2025 2:37 PM EDT) [facility] 25 Hydroxy, Vitamin D 51.0 30.0 - 100.0 ng/ml 01/21/2025 7:50 PM EDT [facility] Blood Venipuncture / Unknown 01/21/2025 2:37 PM EDT 01/21/2025 2:37 PM EDT Narrative [facility] - 01/21/2025 7:50 PM EDT Reference Range for Total Vitamin D 25(OH) Deficiency <20.0 ng/mL Insufficiency 21-29 ng/mL Sufficiency 30-100 ng/mL Toxicity >100 ng/ml Ilene Schultz MD LAB BLOOD ORDERABLES Final Re sult [facility]
[address] [place] [address], * TSH (01/21/2025 2:37 PM EDT) Pathologist [facility] [place] TSH 1.210 0.270 - 4.200 uIU/mL 01/21/2025 7:50 PM EDT [facility] Blood Venipuncture / Unknown 01/21/2025 2:37 PM EDT 01/21/2025 2:37 PM EDT Ilene Schultz MD LAB BLOOD ORDERABLES Final Re sult Performing Organization Address City/[facility]/ZIP Co de Phone Number [facility]
[address] [place] [address], * Hepatitis C Antibody (11/13/2024 10:51 AM EDT) [facility] Hepatitis C Ab Non-Reacti ve Non-Reacti ve 11/13/2024 3:07 PM EDT [facility] Blood Venipuncture / Unknown 11/13/2024 10:51 AM EDT 11/13/2024 10:55 AM EDT Ilene Schultz MD LAB BLOOD ORDERABLES Final Re sult Performing Organization Address City/[facility]/ZIP Co de Phone Number [facility]
[address] [place] [address], from Last 3 Months or Most Recently Relevant to Health Maintenance Insurance [employer] Advance Directives * CPR (Attempt to Resuscitate) (Latest Code Status on File) Date Activated Date Inactivated Comments 05/17/2021 5:28 PM 05/20/2021 6:24 PM Question Answer Comments Code Status (Patient has no pulse and is not breathing): CPR (Attempt to Resuscitate) Medical Interventions (Patie nt has pulse or is breathing): Full * CPR (Attempt to Resuscitate) Date Activated Date Inactivated Comments 04/03/2021 1:24 PM 04/03/2021 8:45 PM Question Answer Comments Code Status (Patient has no pulse and is not breathing): CPR (Attempt to Resuscitate) Medical Interventions (Patie nt has pulse or is breathing): Full Care Teams Substation Operator Helper Relationship Specialty Start Date End Date Provider, No Known [facility] [address] PCP - General 04/03/21
--- OUTSIDE RECORDS SUMMARY | 2025-03-30 12:56 | XMS_ITS | Encounter Summary ---
[facility] Organization [facility] Address [address] [place] [address] Care Team Providers Care Manager Balance Name Role Phone Provider, No Known Primary Care Provider Unavail able Encounter Details Date Type Department Care Team (Latest Contact Info) Description 03/19/2025 Travel Social History Tobacco Use Types Packs/Day Years Used Date Smoking Tobacco: Never Smokeless Tobacco: Never Comments:Is not around secon dhand smoke in house or car Alcohol Use Standard Drinks/Week Comments Not Currently 0 (1 standard drink = 0.6 oz pur e alcohol) Humphrey Depression Scale Answer Date Recorded Humphrey Depression Scale Total 2 05/18/2021 The thought of harming myself has occurred to me . 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 [address] [place] [address] 06/02/2025 12:00 PM EDT - 06/02/2025 1:00 PM EDT Surgery [facility] [address] [place] [address] Ilene Schultz MD [address] [place] [address] SECTION REPEAT WITH SALPINGECTOMY Scheduled Procedures Name Priority Associated Diagnoses Date/Ti me SECTION REPEAT WITH SALPINGECTOMY 06/02/2025 12:00 PM EDT documented as of this encounter Visit Diagnoses Not on filedocumented in this encounter Care Teams Manager Balance Relationship Specialty Start Date End Date Provider, [place] [address] PCP - General 04/03/21 documented as of this encounter
[2025-03-30 13:02] VITALS: BP 147/88; PULSE 70; RESP 18; TEMP 36.7; O2SAT 100; BMI 48.2
[2025-03-30 13:27] LABS: Microscopic, Urine URINE MICROSCOPIC (MICROSCOPIC)
[2025-03-30 13:34] LABS: Bilirubin,Urine Negative (Negative); Color,Urine YELLOW (Yellow); Glucose,Urine (UA) Negative (Negative); Ketones,Urine Negative (Negative); Leukocyte Esterase,Urine Negative (Negative); PH,Urine 6.0 (5.0-8.5); Protein,Urine Negative (Negative); Specific Gravity, Urine <= 1.005 (1.005-1.030); Urobilinogen,Urine 0.2 EU/dl (0.2)
[2025-03-30 13:45] LABS: Bacteria,Urine Trace /lpf; RBC,Urine Occasional #/hpf (0-3); Squamous Epithelial Cell,Urine Occasional #/hpf (0-5)
== END 2025-03-30 14:35 | disposition home or self-care (01) ==
LOC: OBOUT 12:53 → OB 12:54
PROVIDERS: Visit Provider Obstetrics & Gynecology
DX: O36.8130 Decreased fetal movements, third trimester, not applicable or unspecified (principal); Z3A.30 30 weeks gestation of pregnancy
CPT/HCPCS: 59025; 81001

== ENCOUNTER 2025-06-05 23:02 | Emergency (ER) | payer OTHER, SELFPAY ==
--- OUTSIDE RECORDS SUMMARY | 2016-07-13 12:22 | XMS_ITS | Encounter Summary ---
Author Organization [facility] Address [address] [id number] Care Team Providers Care Childbirth Educator Name Role Phone Moon Jaquez MD Primary Care Provider [phone] Reason for Referral * Hospital - Outpatient (Routine) - Closed Specialty Diagnoses / Procedures Referred By Mehul t Referred To Contact Sleep Medicine Diagnoses Obstructive sleep apnea, adult Snoring Procedures Home Sleep Study David Feng MD [address] [place] [address] Phone: tel: fax: David Feng MD [address] [place] [address] Phone: tel: fax: Referral ID Status Reason Start Date Expiration Date Visits Re quested Visits Authorized [id number] Closed 07/13/2016 07/13/2017 1 1 Reason for Visit * Hospital - Outpatient (Routine) - Closed Specialty Diagnoses / Procedures Referred By Contac t Referred To Contact Sleep Medicine Diagnoses Obstructive sleep apnea, adult Snoring Procedures Home Sleep Study David Feng MD [address] [place] [address] Phone: tel: fax: David Feng MD [address] [place] [address] Phone: tel: fax: Referral ID Status Reason Start Date Expiration Date Visits Re quested Visits Authorized [id number] Closed 07/13/2016 07/13/2017 1 1 Encounter Details Date Type Department Care Team (Latest Contact Info) Description 07/13/2016 11:22 AM EST Hospital Encounter [facility] SLEEP LAB [address] [place] [address] David Feng MD [address] [facility] [address] [place] [address] Obstructive sleep apnea, adult; Snoring Social History Tobacco Use Types Packs/Day Years Used Date Smoking Tobacco: Never Smokeless Tobacco: Never Comments:Is not around secon dhand smoke in house or car Alcohol Use Standard Drinks/Week Comments Not Currently 0 (1 standard drink = 0.6 oz pur e alcohol) [facility] Utilities Answer Date Recorded In the past 12 months has [employer], gas, oil, or water [employer] threatened to shut off services in your home? No 06/02/2025 AUDIT-C Answer Date Recorded Q1: How often do you have a drink containing alcohol? Never 06/02/2025 Q2: How many drinks containi ng alcohol do you have on a typical day when you are drinking? Patient does not drink Q3: How often do you have si x or more drinks on one occasion? Never 06/02/2025 Overall Financial Resource Strain (CARDIA) Answe r Date Recorded How hard is it for you to pa y for the very basics like food, housing, medical care, and heating? Not hard at all 06/02/2025 [facility] [place] of Occupat ional Health - Occupational Stress Questionnaire Answer Date Recorded Do you feel stress - tense, restless, nervous, or anxious, or unable to sleep at night because your mind is troubled all the time - these days? Not at all 06/02/2025 Exercise Vital Sign Answer Date Recorde d On average, how many days pe r week do you engage in moderate to strenuous exercise (like a brisk walk)? 0 days 06/02/2025 On average, how many minutes do you engage in exercise at this level? 0 min 06/02/2025 Hunger Vital Sign Answer Date Recorded Within the past 12 months, y ou worried that your food would run out before you got the money to buy more. Never true 06/02/20 25 Within the past 12 months, t he food you bought just didn't last and you didn't have money to get more. Never true 06/02/2025 PRAPARE - Transportation Answer Date Re corded In the past 12 months, has l ack of transportation kept you from medical appointments or from getting medications? No 09/2024 In the past 12 months, has l ack of transportation kept you from meetings, work, or from getting things needed for daily living? No 06/02/2025 [place] Depression Scale Answer Date Recorded [place] Depression Scale Total 10 06/02/2025 The thought of harming myself has occurred to me . Never 06/02/2025 Abuse Screen Answer Date Recorded Feels Unsafe at Home or Work/School no 06/02/2025 Feels Threatened by Someone no 09/2024 Does Anyone Try to Keep You From Having Contact with Others or Doing Things Outside Your Home? no 06/02/2025 Physical Signs of Abuse Present no 06/02/2025 Housing Stability Answer Date Recorded Current Living Arrangements home 09/2024 Potentially Unsafe Housing Conditions in sects/pests;lead paint or pipes;mold;weapon(s);windows broken 06/02/2025 Family and Community Support Answer Carlos A e Recorded If for any reason you need h elp with day-to-day activities such as bathing, preparing meals, shopping, managing finances, etc., do you get the help you need? I don't need any help 06/02/2025 How often do you feel lonely or isolated from those around you? Rarely 06/02/2025 Employment Answer Date Recorded Do you want help finding or keeping work or a job? I do not need or want help 06/02/2025 Disabilities Answer Date Recorded Difficulty Concentrating, Remembering or Making Decisions yes 06/02/2025 Difficulty Managing Errands Independently no 06/02/2025 Education Answer Date Recorded Do you want help with school or training? 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 Never 06/02/2025 11:46 PM Garima Henley RN Q2: How many drinks containing alcohol do you have on a typical day when you are drinking? Patient does not drink 06/02/2025 11:46 PM Garima Henley RN Q3: How often do you have six or more drinks on one occasion? Never 06/02/2025 11:46 PM Garima Henley RN * Over the past 2 weeks, how often have you been bothered by any of the following problems? Question Answer Date of Assessment Author Patient Health Questionnaire -2 Score 0 06/02/2025 11:51 PM Garima Henley RN * Question Answer Date of Assessment Author 1. Wish to be (Past 1 Month) No 11:51 AM Aruna Villatoro RN 2. Non-Specific Active Suici homar Thoughts (Past 1 Month) No 06/02/2025 11:51 AM EDT Mary Llamas RN * Calculated C-SSRS Risk Score (Lifetime/Recent) Answer Date of Assessment Author Moderate Risk 06/02/2025 11:51 AM EDT Paola Llamas RN * [place] Suicide Severity Rating Scale (Screener/Recent Self-Report) Question Answer Date of Assessment Author 6. Suicidal Behavior (Lifetime) Yes 11:51 AM Aruna Villatoro RN 6. Suicidal Behavior (3 Months) No 11:51 AM Aruna Villatoro RN * Question Answer Date of Assessment Author Little interest or pleasure in doing things Not at all 06/02/2025 11:51 PM EDT Garima Aguilar RN Feeling down, depressed, or hopeless Not at all 06/02/2025 11:51 PM EDT Garima Aguilar RN documented as of this encounter Plan of Treatment Not on file documented as of this encounter Procedures Procedure [...] axis A: #1 mild obstructive sleep apnea [place] B: Home sleep test with watch Pat device [place] C: #1 morbid obesity #2 tonsillar hypertrophy [...] to follow-up with Dr. Gisele Feng MD [facility] Sleep Medicine Pulmonary and Critical Care Medicine David Feng MD SLEEP CENTER ORDERABLES Final Re sult documented in this encounter Visit Diagnoses Diagnosis Obstructive sleep apnea, adult Snoring Other dyspnea and respiratory abnormality documented in this encounter Additional Health Concerns Infection Onset Date Last Indicated Resolved Time COVID Screen (preop/placement) 05/15/2021 05/15/2021 05/15/2021 4:02 PM EDT documented as of this encounter Care Teams Childbirth Educator Relationship Specialty Start Date End Date Moon Jaquez MD [address] [place] [address] PCP - General 06/10/15 04/02/21 documented as of this encounter
--- OUTSIDE RECORDS SUMMARY | 2021-12-05 05:00 | XMS_ITS | Continuity of Care Document ---
Author Organization [facility] o Address [address] [place] [address] Phone Care Team Providers Care Director Of Business Continuity Name Role Phone Cheng Oakes MD Unavailable Unavailable Medications Medication Instructions Dosage Effective Dates (start - stop) Status Comments Medrol (Adan) 4 mg tablets in a dose pack take by Oral route once follow instructions on box Not Available - Active Procedures Procedure Date Office/outpatient visit,[facility], [facility] 2021 X-ray exam lwr spine, min 4 views Advance Directives Directive Yes / No Effective Date File Name No Information Encounters Encounter Description Practice Location Reason(s) For Visit Diagnoses Date Provider Providers Copied on Encounter Office/outpat ient visit,[place], [facility] [place], [address] [facility] [place], [address], tel:[phone] [facility] Segmental and somatic dysfunction of sacral region 2 [address] Anand. Jared E [facility] [place], [id number] , [place]. [phone] Referring Provider: Cheng Serrato, [place], [address] . tel:[phone] Family History Family Member Type Diagnosis Age At Onset Mother Problem (finding) Hypertension Brother Problem (finding) Depression Mother Problem (finding) Cancer Mother Problem (finding) Depression Payers Payer name Insurance type Covered republican ID Kyra loredo(s) UMR - [id number] Social History Type Description Quantity Date Captured Comments Alcohol Use Details No Caffeine Use Details Tobacco Use Status No Information Smoking Status Never smoker Non-Smoking Tobacco Use Details : No Details Available : No Details Available Sex Female Chief Complaint And Reason For Visit No Information Reason For Referral Reason For Referral No Information History Of Present Illness Encounter Date Complaint History Of Prese nt Illness No Information Functional Status Date Functional Assessmen t No Information Instructions Date Instruction Additional Infor mation No Information Assessments Type Assessment Date No Information Patient Care Teams Name Effective Dates (start - stop) Status Members No Information
--- OUTSIDE RECORDS SUMMARY | 2025-05-31 15:30 | XMS_ITS | Encounter Summary ---
Author Organization [facility] Address [address] [place] [address] Care Team Providers Care Pinion Polisher Name Role Phone Provider, No Known Primary Care Provider Unavail able Encounter Details Date Type Department Care Team (Latest Contact Info) Description 05/31/2025 3:30 PM EDT Pre-Admission Testing [facility] [address] [place] [address] Previous section Social History Tobacco Use Types Packs/Day Years Used Date Smoking Tobacco: Never Smokeless Tobacco: Never Comments:Is not around secon dhand smoke in house or car Alcohol Use Standard Drinks/Week Comments Not Currently 0 (1 standard drink = 0.6 oz pur e alcohol) [place] Depression Scale Answer Date Recorded [place] Depression Scale Total 2 05/18/2021 The thought of harming myself has occurred to me . 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 If patient had any questions or concerns about their arrival time, they were instructed to contact their surgeon/physician. Additionally, if the patient referred to an arrival time that was acquired from their my chart account, patient was encouraged to verify that time with their surgeon/physician. Arrival times are NOT provided inPre Admission Testing Department. Patient viewed general PAT education video as instructed in their preoperative information receivedfrom their surgeon. Patient stated the general PAT education video was viewed in its entirety and survey completed. Copies of [facility] general education handouts (Incentive Spirometry, Meds to Beds Program, Patient Belongings, Pre-op skin preparation instructions, Blood Glucose testing, Visitor policy, Surgery FAQ, Code H) distributed to patient if not printed. Education related to the PAT pass and skin preparation for surgery (if applicable) completed in PAT as a reinforcement to PAT education video. Patient instructed to return PAT pass provided today as well as completed skin preparation sheet ( if applicable) on the day of procedure. Additionally if patient had not viewed video yet but intended to view it at home or in our waiting area, then referred them to the handout with QR code/link provided during PAT visit. Instructed patient to complete survey after viewing the video in its entirety. Encouraged patient/family to read [facility] general education handouts thoroughly and notify PAT staff with any questions or concerns. Patientverbalized understanding of all information and priority content. Patient denies any current skin issues. Patient to apply Chlorhexadine wipes to surgical area (as instructed) the night before procedure and the AM of procedure. Wipes provided. Instructed patient to take two Tylenol extra strength (total of 1000 mg) the night before surgery. Patient instructed to drink 20 ounces of Gatorade or Gatorlyte (if diabetic) and it needs to be completed 1 hour (for Main OR patients) or 2 hours (scheduled section & [facility] patients) before given arrival time for procedure (NO RED Gatorade and NO Gatorade Zero). Patient verbalized understanding. Blood bank bracelet applied to patient during Pre Admission Testing visit. Patient instructed not to remove from arm until after procedure and they are discharged from the hospital. Explained to patient that they may shower and get the bracelet wet, but not to immerse under water for longer periods(bathing, swimming, hand dishwashing, etc). Patient verbalized understanding. documented in this encounter Plan of Treatment Not on file documented as of this encounter Procedures Procedure Name Priority Date/Time Associated Diagnosis Comments TREPONEMA PALLIDUM AB W/REFLEX RPR STAT 05/31/2025 3:34 PM EDT CBC (NO DIFF) Routine 05/31/2025 3:34 PM EDT Previous section TYPE AND SCREEN Routine 05/31/2025 3:34 PM EDT Previous section documented in this encounter Results * Type and screen (05/31/2025 3:34 PM EDT) ABO Type O 05/31/2025 4:41 PM EDT [facility] RH type Positive 05/31/2025 4:41 PM EDT [facility] Antibody Screen Negative 05/31/2025 4:41 PM EDT [facility] T&S Expiration Date 06/03/2025 11:59:59 PM 05/31/2025 4:41 PM EDT [facility] Blood Venipuncture / Unknown 05/31/2025 3:34 PM EDT 05/31/2025 3:59 PM EDT us Ilene Schultz MD BLOOD BANK TEST ORDERABLES Ed ited Result - Final [facility]
[address] [place] [address], * (ABNORMAL) CBC (No Diff) (05/31/2025 3:34 PM EDT) WBC 8.04 3.40 - 10.80 10*3/mm3 05/31/2025 4:07 PM EDT [facility] RBC 4.44 3.77 - 5.28 10*6/mm3 05/31/2025 4:07 PM EDT [facility] Hemoglobin 12.6 12.0 - 15.9 g/dL 05/31/2025 4:07 PM EDT [facility] Hematocrit 37.8 34.0 - 46.6 % 05/31/2025 4:07 PM EDT [facility] MCV 85.1 79.0 - 97.0 fL 05/31/2025 4:07 PM EDT [facility] MCH 28.4 26.6 - 33.0 pg 05/31/2025 4:07 PM EDT [facility] MCHC 33.3 31.5 - 35.7 g/dL 05/31/2025 4:07 PM EDT [facility] RDW 14.3 12.3 - 15.4 % 05/31/2025 4:07 PM EDT [facility] RDW-SD 43.8 37.0 - 54.0 fl 05/31/2025 4:07 PM EDT [facility] MPV 12.1(H) 6.0 - 12.0 fL 05/31/2025 4:07 PM EDT [facility] Platelets 133(L) 140 - 450 10*3/mm3 05/31/2025 4:07 PM EDT [facility] Blood Venipuncture / Unknown 05/31/2025 3:34 PM EDT 05/31/2025 4:03 PM EDT us Ilene Schultz MD LAB BLOOD ORDERABLES Final Re sult [facility]
[address] [place] [address], * Treponema pallidum AB w/Reflex RPR (05/31/2025 3:34 PM EDT) Treponemal AB Total Non-Reacti ve Non-React mahin 05/31/2025 11:23 PM EDT [facility] Blood Venipuncture / Unknown 05/31/2025 3:34 PM EDT 05/31/2025 4:03 PM EDT Narrative [facility] - 05/31/2025 11:23 PM EDT Reactive results will reflex RPR testing. us Ilene Schultz MD LAB BLOOD ORDERABLES Final Re sult [facility]
[address] [place] [address], [place] [phone] documented in this encounter Visit Diagnoses Diagnosis Previous section Other postprocedural status documented in this encounter Care Teams Pinion Polisher Relationship Specialty Start Date End Date Provider, [place] [address] PCP - General 04/03/21 documented as of this encounter
--- OUTSIDE RECORDS SUMMARY | 2025-06-02 10:16 | XMS_ITS | Encounter Summary ---
Author Organization [facility] Address [address] [place] [address] Care Team Providers Care Yarn Salvager Name Role Phone Provider, No Known Primary Care Provider Unavail able Reason for Visit * Auth/Cert Specialty Diagnoses / Procedures Referred By Mehul gannon Referred To Contact Procedures SECTION REPEAT WITH SALPINGECTOMY Referral ID Status Reason Start Date Expiration Date Visits Re quested Visits Authorized 1 1 Encounter Details Date Type Department Care Team (Late st Contact Info) Description 06/02/2025 10:16 AM EDT - 06/04/2025 11:45 AM EDT Hospital Encounter [facility] [address] [place] [address] Ilene Schultz MD [address] [facility] [address] [place] [id number] S/P section (Primary Dx); Previous section Discharge Disposition: Home or Self Care Social History Tobacco Use Types Packs/Day Years Used Date Smoking Tobacco: Never Smokeless Tobacco: Never Comments:Is not around secon dhand smoke in house or car Alcohol Use Standard Drinks/Week Comments Not Currently 0 (1 standard drink = 0.6 oz pur e alcohol) [facility] Utilities Answer Date Recorded In the past 12 months has [employer], gas, oil, or water [employer] threatened to shut off services in your [...] and heating? Not hard at all 06/02/2025 [facility] - Occupational Stress [...] things needed for daily living? 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 on file Not on file Not o n file documented as of this encounter Last Filed Vital Signs Vital Sign Reading Time Taken Comments Blood Pressure 118/70 06/04/2025 7:11 AM EDT Pulse 99 06/04/2025 7:11 AM EDT Temperature 36.9 C (98.5 F) 06/04/2025 7:11 AM EDT Respiratory Rate 20 06/04/2025 7:11 AM EDT Oxygen Saturation 97% 06/02/2025 2:45 PM EDT Inhaled Oxygen Concentration - - Weight 142 kg (312 lb) 06/02/2025 11:58 AM EDT Height 165.1 cm (5' 5 ) 06/02/2025 11:58 AM EDT Body Mass Index 51.92 06/02/2025 11:58 AM EDT documented in this encounter Functional Status * Audit-C Score Answer Date of Assessment Author 0 06/02/2025 11:46 PM EDT Garima Aguilar RN * Question Answer Date of Assessment Author Q1: How often do you have a drink containing alcohol? Never 06/02/2025 11:46 PM EDT Garima Aguilar RN Q2: How many drinks containing alcohol do you have on a typical day when you are drinking? Patient does not drink 06/02/2025 11:46 PM FERMINT Garima Aguilar RN Q3: How often do you have six or more drinks on one occasion? Never 06/02/2025 11:46 PM EDT Garima Aguilar RN * Over the past 2 weeks, how often have you been bothered by any of the following problems? Question Answer Date of Assessment Author Patient Health Questionnaire -2 Score 0 06/02/2025 11:51 PM Garima Henley RN * Question Answer Date of Assessment Author 1. Wish to be (Past 1 Month) No 025 11:51 AM EDAruna Geiger RN 2. Non-Specific Active Suici homar Thoughts (Past 1 Month) No 06/02/2025 11:51 AM EDT Mary Llamas RN * Calculated C-SSRS Risk Score (Lifetime/Recent) Answer Date of Assessment Author Moderate Risk 06/02/2025 11:51 AM EDT Paola Llamas RN * [place] Suicide Severity Rating Scale (Screener/Recent Self-Report) Question Answer Date of Assessment Author 6. Suicidal Behavior (Lifetime) Yes 11:51 AM EDAruna Geiger RN 6. Suicidal Behavior (3 Months) No 11:51 AM EDT Aruna Llamas RN * Question Answer Date of Assessment Author Little interest or pleasure in doing things Not at all 06/02/2025 11:51 PM Garima Henley RN Feeling down, depressed, or hopeless Not at all 06/02/2025 11:51 PM Garima Henley RN documented as of this encounter Discharge Summaries * Ilene Schultz MD - 06/04/2025 8:02 AM EDT [facility] Discharge Summary Patient: Fabiola Chavez MR#:[id number] Admission Diagnosis: Problems Addressed this Visit Gravid and S/P section - Primary Relevant Medications acetaminophen (TYLENOL) tablet 1,000 mg (Completed) acetaminophen (TYLENOL) tablet 650 mg ketorolac (TORADOL) injection 15 mg (Completed) ibuprofen (ADVIL,MOTRIN) tablet 600 mg carboprost (HEMABATE) injection 250 mcg miSOPROStol (CYTOTEC) tablet 600 mcg methylergonovine (METHERGINE) injection 200 mcg ibuprofen (ADVIL,MOTRIN) 600 MG tablet oxyCODONE (ROXICODONE) 5 MG immediate release tablet Other Visit Diagnoses Previous section Relevant Medications lactated ringers bolus 1,000 mL (Completed) Sod Citrate-Citric Acid (BICITRA) oral solution 30 mL (Completed) acetaminophen (TYLENOL) tablet 1,000 mg (Completed) ceFAZolin 3000 mg IVPB in 100 mL NS (MBP) (Completed) acetaminophen (TYLENOL) tablet 1,000 mg (Completed) acetaminophen (TYLENOL) tablet 650 mg ketorolac (TORADOL) injection 15 mg (Completed) ibuprofen (ADVIL,MOTRIN) tablet 600 mg carboprost (HEMABATE) injection 250 mcg miSOPROStol (CYTOTEC) tablet 600 mcg methylergonovine (METHERGINE) injection 200 mcg oxytocin (PITOCIN) 30 units in 0.9% sodium chloride 500 mL (premix) (Completed) ketorolac (TORADOL) injection 30 mg (Completed) ibuprofen (ADVIL,MOTRIN) 600 MG tablet Diagnoses Codes Comments S/P section - Primary ICD-10-CM: Z98.891 ICD-9-CM: V45.89 Previous section ICD-10-CM: Z98.891 ICD-9-CM: V45.89 Discharge Diagnosis: 1. S/P section 2. Previous section Date of Admission: 06/02/2025 Date of Discharge: 06/04/2025 Procedures: , Low Transverse 06/02/2025 1:04 PM Service: Obstetrics Hospital Course: Patient underwent section and remained in the hospital for 2 days. Duringthat time she remained afebrile and hemodynamically stable. On the day of discharge, she was eating, ambulating and voiding without difficulty. Labs Lab Results Component Value Date WBC 8.10 06/03/2025 HGB 11.4 (L) 06/03/2025 HCT 35.7 06/03/2025 MCV 89.3 06/03/2025 PLT 101 (L) 06/03/2025 CREATININE 0.52 (L) 04/03/2021 URICACID 3.9 04/03/2021 AST 13 04/03/2021 ALT 9 04/03/2021 LDH 146 04/03/2021 Results from last 7 days Lab Units 05/31/25 1534 ABO TYPING O RH TYPING Positive ANTIBODY SCREEN Negative Discharge Medications Discharge Medications New Medications Instructions Start Date oxyCODONE 5 MG immediate release tablet Commonly known as: ROXICODONE 5 mg, Oral, Every 6 Hours PRN Changes to Medications Instructions Start Date docusate sodium 100 MG capsule Commonly known as: Colace What changed: when to take this reasons to take this 100 mg, Oral, 2 Times Daily ibuprofen 600 MG tablet Commonly known as: ADVILMOTRIN What changed: when to take this reasons to take this 600 mg, Oral, Every 6 Hours Continue These Medications Instructions Start Date calcium carbonate 500 MG chewable tablet Commonly known as: TUMS 1 tablet, Oral, Daily PRN DHA ALGAL-900 PO 900 mg, Oral, Daily ferrous sulfate 324 (65 Fe) MG tablet delayed-release EC tablet 324 mg, Oral, 2 Times Daily With Meals IRON FORMULA PO 25 mg, Daily lanolin cream Topical, Every 1 Hour PRN loratadine 10 MG tablet Commonly known as: CLARITIN 10 mg, Oral, Daily MAGNESIUM GLYCINATE PO 240 mg, Daily Mi-Acid Gas Relief 80 MG chewable tablet Generic drug: simethicone 80 mg, Oral, 4 Times Daily PRN omeprazole 40 MG capsule Commonly known as: priLOSEC 40 mg, Daily 27-1 27-1 MG tablet tablet 1 tablet, Daily Risaquad-2 capsule capsule 1 capsule, Daily Stop These Medications acetaminophen 325 MG tablet Commonly known as: TYLENOL Discharge Disposition: To Home Discharge Condition: Stable Discharge Diet: regular Activity at Discharge: pelvic rest Follow-up Appointments 2 weeks Ilene Schultz MD 06/04/25 08:02 EDT documented in this encounter Medications at Time of Discharge calcium carbonate (TUMS) 500 MG chewable tablet Chew 1 tablet Daily As Needed for Indigestion or Heartburn. Docosahexaenoic Acid (DHA ALGAL-900 PO) Take 900 mg by mouth Daily. docusate sodium (Colace) 100 MG capsule Take 1 capsule by mouth 2 (Two) Times a Day. 60 capsule 1 06/04/2025 9:47 AM EDT 06/04/2025 ferrous sulfate 324 (65 Fe) MG tablet delayed-release EC tablet Take 1 tablet by mouth 2 (Two) Times a Day With Meals. 90 tablet 05/20/2021 3:11 PM EDT 05/20/2021 ibuprofen (ADVIL,MOTRIN) 600 MG tablet Take 1 tablet by mouth Every 6 (Six) Hours. 30 tablet 06/04/2025 9:47 AM EDT 06/04/2025 Iron-Folic Acid-Vit B12 (IRON FORMULA PO) Take 25 mg by mouth Daily. lanolin cream Apply topically to the appropriate area as directed Every 1 (One) Hour As Needed for Dry Skin (nipple pain). 05/20/2021 loratadine (CLARITIN) 10 MG tablet Take 1 tablet by mouth Daily. MAGNESIUM GLYCINATE PO Take 240 mg by mouth Daily. omeprazole (priLOSEC) 40 MG capsule Take 1 capsule by mouth Daily. oxyCODONE (ROXICODONE) 5 MG immediate release tabletIndication s:S/P section Take 1 tablet by mouth Every 6 (Six) Hours As Needed for Moderate Pain for up to 3 days. 10 tablet 06/04/2025 9:47 AM EDT 06/04/2025 5 Vit-Fe Fumarate-FA ( 27-1) 27-1 MG tablet tablet Take 1 tablet by mouth Daily. Probiotic Product (Risaquad-2) capsule capsule Take 1 capsule by mouth Daily. simethicone (MYLICON) 80 MG chewable tablet Chew 1 tablet 4 (Four) Times a Day As Needed for Flatulence. 30 tablet 1 05/20/2021 3:11 PM EDT 05/20/2021 documented as of this encounter Progress Notes * Ilene Schultz MD - 06/04/2025 7:39 AM EDT 06/04/2025 Name:Fabiola Chavez MR#:[id number] PROGRESS NOTE: Post-Op 2 S/P Subjective 40 y.o. yo Female s/p CS at 39w3d doing well. Pain well controlled, lochia appropriate, tolerating diet. She would like to go home S/P section Super obesity Objective Vitals Temp: Temp: [98.1 ??F (36.7 ??C)] 98.1 ??F (36.7 ??C) Temp src: Oral BP: BP: (113-122)/(58-69) 116/69 Pulse: Heart Rate: [73-83] 75 RR: Resp: [16] 16 General Awake, alert, no distress Abdomen Soft, non-distended, fundus firm, below umbilicus, appropriately tender Incision Intact, no erythema or exudate Extremities Calves NT bilaterally I/O last 3 completed shifts: In: - Out: 2950 [Urine:2950] LABS: Lab Results Component Value Date WBC 8.10 06/03/2025 HGB 11.4 (L) 06/03/2025 HCT 35.7 06/03/2025 MCV 89.3 06/03/2025 PLT 101 (L) 06/03/2025 Infant: female Assessment 1. POD 2 from Section, doing well 2. Gestational thrombocytopenia: plts >100k. No abnormal bleeding Plan: Discharge home. Incision check in 2 weeks. Repeat CBC in 2 weeks. Precautions reviewed Ilene Schultz MD 06/04/2025 07:39 EDT * Leora Pavon, RACHEL - 06/03/2025 9:23 AM EDT 06/03/2025 Name:Fabiola Chavez MR#:[id number] PROGRESS NOTE: Post-Op 1 S/P Subjective 40 y.o. yo Female s/p CS at 39w3d doing well. Pain well controlled, lochia appropriate. Sheis combo feeding. S/P section Super obesity Objective Vitals Temp: Temp: [97.6 ??F (36.4 ??C)-98.4 ??F (36.9 ??C)] 98.3 ??F (36.8 ??C) Temp src: Oral BP: BP: (101-142)/(51-91) 111/59 Pulse: Heart Rate: [58-89] 60 RR: Resp: [16-18] 18 General Awake, alert, no distress Abdomen Soft, non-distended, fundus firm, below umbilicus, appropriately tender Incision Intact, no erythema or exudate Extremities Calves NT bilaterally I/O last 3 completed shifts: In: 1500 [I.V.:1500] Out: 1489 [Urine:1000; Blood:489] LABS: Lab Results Component Value Date WBC 8.04 05/31/2025 HGB 12.6 05/31/2025 HCT 37.8 05/31/2025 MCV 85.1 05/31/2025 PLT 133 (L) 05/31/2025 Infant: female Assessment 1. POD 1 from Section 2. AM labs pending Plan: Doing well. Discontinue IV, advance diet, may shower. VSS, available Leora Pavon APRN 06/03/2025 09:23 EDT documented in this encounter H&P Notes * Ange Renee MD - 06/02/2025 10:23 AM EDT [facility] Obstetric History and Physical No chief complaint on file. Subjective Patient is a 40 y.o. female currently at 39w3d who presents for scheduled repeat section with bilateral salpingectomy. Her care is complicated by prior CS x1 for breech presentation, AMA, BMI 52, and concern for LGA (>90%) on last US at 36w. Hx of HTN outside of , has remained normotensive without meds this . The following portions of the patients history were reviewed and updated as appropriate: current medications, allergies, past medical history, and past surgical history . Information: Maternal Labs Blood Type ABO Type Date Value Ref Range Status 05/31/2025 O Final Rh Status RH type Date Value Ref Range Status 05/31/2025 Positive Final Antibody Screen Antibody Screen Date Value Ref Range Status 05/31/2025 Negative Final Past OB History: OB History Para Term AB Living 2 1 1 0 0 1 SAB IAB Ectopic Molar Multiple Live Births 0 0 0 0 0 1 # Outcome Date GA Lbr Sourav/2nd Weight Sex Type Anes PTL Lv 2 Current 1 Term 05/17/21 39w5d 3959 g (8 lb 11.7 oz) F CS-LTranv Spinal N NIKIA Name: ROSHNI CHAVEZ Apgar1: 8 Apgar5: 9 Past Medical History: Past Medical History: Diagnosis Date Abscess 2006 several small abscess requiring drainage several years ago Anxiety Back pain Depression Fatigue History of depression Hypertension Irritable bowel diarrhea, better on keto diet Migraine MRSA infection 2006 REJI (obstructive sleep apnea) PCOS (polycystic ovarian syndrome) Wears glasses Past Surgical History Past Surgical History: Procedure Laterality Date SECTION N/A 05/17/2021 Procedure: SECTION PRIMARY BREECH; Surgeon: Ilene Schultz MD; Location: [facility]; Service: Obstetrics/Gynecology; Laterality: N/A; EAR TUBES WISDOM TOOTH EXTRACTION Family History: Family History Problem Relation Age of Onset Hypertension Mother Cancer Mother Lung/Breast Depression Mother Sleep apnea Mother Breast cancer Mother Lung cancer Mother Thyroid cancer Mother No Known Problems Father Breast cancer Maternal Grandmother Throat cancer Maternal Grandfather Stroke Paternal Grandfather Ovarian cancer Neg Hx Social History: reports that she has never smoked. She has never used smokeless tobacco. reports that she does not currently use alcohol. reports no history of drug use. REVIEW OF SYSTEMS Reports movement is normal Denies leakage of amniotic fluid. Denies vaginal bleeding She reports No contractions All other systems reviewed and are negative Objective Vital Signs Range for the last 24 hours Temperature: Temp: [98.1 ??F (36.7 ??C)] 98.1 ??F (36.7 ??C) Temp Source: Temp src: Oral BP: BP: (142)/(91) 142/91 Pulse: Heart Rate: [89] 89 Respirations: Resp: [16] 16 SPO2: SpO2: [96 %] 96 % O2 Amount (l/min): O2 Devices Weight: Weight: [142 kg (312 lb)] 142 kg (312 lb) Constitutional: Well developed, well nourished, no acute distress, well-groomed. Respiratory: Normal respiratory effort. Cardiovascular: Normal rate. Gastrointestinal: Soft, gravid, nontender. Uterus: Soft, nontender. Fundus appropriate for dates. Neurologic: Alert & oriented x 3, no focal deficits noted. Psychiatric: Speech and behavior appropriate. Extremities: no cyanosis, clubbing or edema, no evidence of DVT. Labs: Lab Results Component Value Date WBC 8.04 05/31/2025 HGB 12.6 05/31/2025 HCT 37.8 05/31/2025 MCV 85.1 05/31/2025 PLT 133 (L) 05/31/2025 CREATININE 0.52 (L) 04/03/2021 URICACID 3.9 04/03/2021 AST 13 04/03/2021 ALT 9 04/03/2021 LDH 146 04/03/2021 Results from last 7 days Lab Units 05/31/25 1534 ABO TYPING O RH TYPING Positive ANTIBODY SCREEN Negative Assessment & Plan Term Assessment: 1. Intrauterine at 39w3d gestation with reactive status. 2. Obstetrical history significant for is remarkable for LGA, BMI 52, AMA, prior CS x1. 3. GBS status: negative Plan: Proceed to OR for repeat section with bilateral salpingectomy. Preop abx ordered. 2. Plan of care has been reviewed with patient and questions answered. 3. Risks, benefits of treatment plan have been discussed. 4. All questions have been answered. Ange Renee MD Obstetrics & Gynecology PGY1 06/02/2025 12:16 EDT Cosigned by Ilene Schultz MD at 06/02/2025 12:18 PM EDT Associated attestation - Ilene Schultz MD - 06/02/2025 12:18 PM EDT I have reviewed this documentation and agree. We discussed risks of blood loss, infection, damage to bowel, bladder, blood vessels, nerves, and ureters as well as risks of postoperative complications such as wound issues and VTE. We discussed the risks of life saving blood transfusion and hysterectomy with uncontrolled bleeding. She is accepting of these risks and wishes to proceed with RCS. Questions answered. Ancef. SCDs documented in this encounter Nursing Notes * Aruna Moralez RN - 06/04/2025 9:06 AM EDT Goal Outcome Evaluation: VSS. U/U, firm, light bleeding. Pain controlled with meds. Passing small amount of gas. Breast and bottle feeding well. Ready for D/C. * Carlyn Alonso RN - 06/03/2025 8:04 AM EDT 06/03/25 0804 Maternal Information Date of Referral 06/03/25 Person Making Referral air quality consultant (Courtesy visit for new delivery. Pt reports she BF 1st child along with formula feed mostly for approx 14 mos. child is now 4yo. She reports having had a low supply even with pumping q2-3hrs. Pt is doing both N/NN for this baby as well.) Maternal Reason for Referral previous issues;milk supply concern Maternal Assessment Breast Size Issue (Bilaterally very large breasts noted. Educ on importance of holding her breast while nursesso baby can maintain the latch during feeding) Breast Shape Bilateral:;round Breast Density Bilateral:;soft Nipples Bilateral:;short;graspable (sized pt for 16mm flange for home use. Pt using a hand pump w/18mm for hosp use.) Left Nipple Symptoms intact;nontender Right Nipple Symptoms intact;nontender Maternal Infant Feeding Maternal Emotional State receptive;relaxed Positioning (pt reports she typically nurses across the lap however she was receptive to placing in RFB.Educ on importance of watching feed & this position allows her to view baby best.) Signs of Milk Transfer deep jaw excursions noted (w/stimulation. Educ on importance of putting to BR q2-3hrs or on demand. Educ parents the more formula bottles given the less likely will want to nurse.) Pain with Feeding no Comfort Measures Before/During Feeding suction broken using finger;maternal position adjusted;latchadjusted; position adjusted Comfort Measures Following Feeding air-drying encouraged Latch Assistance full assistance needed (mother was able to take over feeding after demonstration given.) Support Person Involvement actively supporting mother;invited to assist with feeding (FOB at bedside.) Milk Expression/Equipment Breast Pump Type double electric, personal;manual pump (Pt states she has a Spectra pump for home use. she is using a manual pump for bedside. Reminded ptto pump for short or missed feedings or if supplement is given.) Breast Pumping Breast Pumping Interventions post-feed pumping encouraged Referrals Referrals (Enc'd pt to follow up in the outpatient clinic if they need help w/BF after discharge.) documented in this encounter OR Notes * Op Note - Ilene Schultz MD - 06/02/2025 12:56 PM EDT Section With Bilateral Salpingectomy Procedure Note Fabiola Chavez 06/02/2025 Pre-operative Diagnosis: 1. IUP at 39w3d 2. Previous CS, desires RCS 3. Desires permanent sterilization 4. Super obesity with BMI 52 Post-operative Diagnosis: same Findings: normal maternal anatomy Estimated Blood Loss: 500. See QBL flowsheet. Not calculated at time of dictation Drains: Kaye Specimens: bilateral fallopian tubes Complications: None; patient tolerated the procedure well. Disposition: PACU - hemodynamically stable. Condition: stable Surgeon: Ilene Schultz MD Assistants: Ange Renee MD, PGY1 Anesthesia: Spinal anesthesia ASA Class: 3 Procedure Details The patient was seen in the Holding Room. The risks, benefits, complications, treatment options, and expected outcomes were discussed with the patient. The patient concurred with the proposed plan, giving informed consent. The site of surgery was properly noted. The patient was taken to the Operating Room, identified as Fabiola Chavez and the procedure verified as Delivery. A Time Outwas held and the above information confirmed. After induction of anesthesia, the patient was draped and prepped in the usual sterile manner. A Pfannenstiel incision was made and carried down through the subcutaneous tissue to the fascia. A fascial incision was made and extended transversely. The fascia was from the underlying rectus tissue superiorly and inferiorly. The peritoneum was identified and entered. The peritoneal incisionwas extended longitudinally. An Beto retractor was placed. A low transverse uterine incision was made. Delivered from the vertex presentation was a female with weight of 4030 g (8 lb 14.2 oz) and apgars PENDING PER DRT APGARS One minute Five minutes Ten minutes Fifteen minutes Twenty minutes Skin color: Heart rate: Grimace: Muscle tone: Breathing: Totals: . After the umbilical cord was clamped and cut, cord blood was obtained for evaluation. The placenta was removed intact and appeared normal. The uterine outline, tubes and ovaries appeared normal. The uterine incision was closed with running locked sutures of 1 chromic. An additional suture of 1 chromic was placed at the corner of the hysterotomy. Hemostasis was observed. The right fallopian tube was elevated with a Corunna clamp. The enseal was used to sequentially coagulate and cut the parametrium from the fimbria to the cornua, where the tube was then transected and handed off to pathology. The same procedure was repeated on the left fallopian tube which was removed and sent to pathology. Hemostasis along the surgical planes was noted. The uterus was replaced into the abdominal cavity. The hysterotomy was examined and appeared hemostatic. Nolan powder was applied to ensure continued excellent hemostasis. The Beto retractor was removed. The fascia was then reapproximated with running sutures of 0 PDS. The subcutaneous tissue was reapproximated with 2 lay ers of 3-0 plain. The skin was reapproximated with insorb subcuticular keyanna and reinforced with Exofin skin closure system Instrument, sponge, and needle counts were correct prior the abdominal closure and at the conclusion of the case. Ilene Schultz MD 13:47 EDT 06/02/2025 documented in this encounter Plan of Treatment Not on file documented as of this encounter Procedures Procedure Name Priority Date/Time Associated Diagnosis Comments CBC WITH AUTO DIFFERENTIAL Timed 06/03/2025 9:14 AM EDT CBC AND DIFFERENTIAL Timed 06/03/2025 9:14 AM EDT TISSUE PATHOLOGY EXAM Routine 06/02/2025 12:56 PM EDT SECTION REPEAT WITH SALPINGECTOMY 06/02/2025 12:16 PM EDT Special Needs BORDERSEDD 06/06/2513U2M4NP/S W/SALLPPH:[phone] documented in this encounter Results * (ABNORMAL) CBC Auto Differential (06/03/2025 9:14 AM EDT) WBC 8.10 3.40 - 10.80 10*3/mm3 06/03/2025 9:54 AM EDT [facility] RBC 4.00 3.77 - 5.28 10*6/mm3 06/03/2025 9:54 AM EDT [facility] Hemoglobin 11.4(L) 12.0 - 15.9 g/dL 06/03/2025 9:54 AM EDT [facility] Hematocrit 35.7 34.0 - 46.6 % 06/03/2025 9:54 AM EDT [facility] MCV 89.3 79.0 - 97.0 fL 06/03/2025 9:54 AM EDT [facility] MCH 28.5 26.6 - 33.0 pg 06/03/2025 9:54 AM EDT [facility] MCHC 31.9 31.5 - 35.7 g/dL 06/03/2025 9:54 AM EDT [facility] RDW 14.7 12.3 - 15.4 % 06/03/2025 9:54 AM EDT [facility] RDW-SD 47.6 37.0 - 54.0 fl 06/03/2025 9:54 AM EDT [facility] MPV 12.1(H) 6.0 - 12.0 fL 06/03/2025 9:54 AM EDT [facility] Platelets 101(L) 140 - 450 10*3/mm3 06/03/2025 9:54 AM EDT [facility] Neutrophil % 71.2 42.7 - 76.0 % 06/03/2025 9:54 AM EDT [facility] Lymphocyte % 19.8 19.6 - 45.3 % 06/03/2025 9:54 AM EDT [facility] Monocyte % 7.4 5.0 - 12.0 % 06/03/2025 9:54 AM EDT [facility] Eosinophil % 0.7 0.3 - 6.2 % 06/03/2025 9:54 AM EDT [facility] Basophil % 0.4 0.0 - 1.5 % 06/03/2025 9:54 AM EDT [facility] Immature Grans % 0.5 0.0 - 0.5 % 06/03/2025 9:54 AM EDT [facility] Neutrophils, Absolute 5.77 1.70 - 7.00 10*3/mm3 06/03/2025 9:54 AM EDT [facility] Lymphocytes, Absolute 1.60 0.70 - 3.10 10*3/mm3 06/03/2025 9:54 AM EDT [facility] Monocytes, Absolute 0.60 0.10 - 0.90 10*3/mm3 06/03/2025 9:54 AM EDT [facility] Eosinophils, Absolute 0.06 0.00 - 0.40 10*3/mm3 06/03/2025 9:54 AM EDT [facility] Basophils, Absolute 0.03 0.00 - 0.20 10*3/mm3 06/03/2025 9:54 AM EDT [facility] Immature Grans, Absolute 0.04 0.00 - 0.05 10*3/mm3 06/03/2025 9:54 AM EDT [facility] nRBC 0.0 0.0 - 0.2 /100 WBC 06/03/2025 9:54 AM EDT [facility] Blood Venipuncture / Unknown 06/03/2025 9:14 AM EDT 06/03/2025 9:47 AM EDT us Ilene Schultz MD LAB BLOOD ORDERABLES Final Re sult [facility]
[address] [place] [address], * Tissue Pathology Exam (06/02/2025 12:56 PM EDT) Case Report Surgical Pathology Report Case: [id number] Authorizing Provider: Ilene Schultz MD Collected: 06/02/2025 12:56 PM Ordering Location: [facility] Received: 06/03/2025 06:09 AM LABOR DELIVERY Pathologist: Grace Bowens MD Specimen: Fallopian Tubes, Bilateral 06/04/2025 9:35 AM EDT [facility] Clinical Information Previous section, 39 weeks, sterilization 06/04/2025 9:35 AM EDT [facility] Final Diagnosis Right and left fallopian tubes, bilateral tubal ligation: Unremarkable complete cross-sections identified No identified malignancy 06/04/2025 9:35 AM EDT [facility] at 0935 EDT Gross Description 1. Fallopian Tubes, Bilateral. Received in formalin labeled FallopTubeBi are 2 tortuous, fimbriated fallopian tubes which are undesignated as to laterality and average 8.5 cm in length by 0.7 cm in diameter. Sectioning of both tubes reveals a grossly unremarkable lumen. Process Control Technician sections to include half of the fimbriated end and cross-sections from both tubes are submitted separately in blocks 1A-1B. LDP 06/04/2025 9:35 AM EDT [facility] Microscopic Description The slides are reviewed and demonstrate histopathologic features supporting the above rendered diagnosis. 06/04/2025 9:35 AM EDT [facility] Tissue Both fallopian tubes / Unknown 06/02/2025 12:56 PM EDT 06/03/2025 6:09 AM EDT Ilene Schultz MD PATHOLOGY/CYTOLOGY ORDERABLES Final Result [facility]
[address] [place] [address], documented in this encounter Visit Diagnoses Diagnosis S/P section- Primary Other postprocedural status Previous section Other postprocedural status S/P section Other postprocedural status Term Super obesity documented in this encounter Admitting Diagnoses Diagnosis Term documented in this encounter Administered Medications Inactive Administered Medications - up to 3 most recent administrations Medication Order MAR Action Action Date Dose Rate Site acetaminophen (TYLENOL) tablet 1,000 mg 1,000 mg, Oral, Once, On Sat06/02/25 at 1115, For 1 dose, If given for fever, use fever parameter: fever greater than 100.4 F Based on patient request - if ordered for moderate or severe pain, provider allows for administration of a medication prescribed for a lower pain scale. Do not exceed 4 grams of acetaminophen in a 24 hr period. Max dose of 2gm for AST/ALT greater than 120 units/L. If given for pain, use the following pain scale: Mild Pain = Pain Score of 1-3, CPOT 1-2 Moderate Pain = Pain Score of 4-6, CPOT 3-4 Severe Pain = Pain Score of 7-10, CPOT 5-8Indications:Previous section Given 06/02/2025 12:17 PM EDT 1,000 mg acetaminophen (TYLENOL) tablet 1,000 mg 1,000 mg, Oral, Every 6 Hours, First dose on 06/02/25 at 1815, For 24 hours, Pharmacy to schedule 6 hours from pre-op dose. Based on patient request - if ordered for moderate or severe pain, provider allows for administration of a medication prescribed for a lower pain scale. Do not exceed 4 grams of acetaminophen in a 24 hr period. Max dose of 2gm for AST/ALT greater than 120 units/L. If given for pain, use the following pain scale: Mild Pain = Pain Score of 1-3, CPOT 1-2 Moderate Pain = Pain Score of 4-6, CPOT 3-4 Severe Pain = Pain Score of 7-10, CPOT 5-8 Given 06/03/2025 12:33 PM EDT 1,000 mg Given 06/03/2025 5:54 AM EDT 1,000 mg Given 06/02/2025 11:17 PM EDT 1,000 mg acetaminophen (TYLENOL) tablet 650 mg 650 mg, Oral, Every 6 Hours, First dose on Meghan 06/03/25 at 1815, If given for fever, use fever parameter: fever greater than 100.4 F Based on patient request - if ordered for moderate or severe pain, provider allows for administration of a medication prescribed for a lower pain scale. Do not exceed 4 grams of acetaminophen in a 24 hr period. Max dose of 2gm for AST/ALT greater than 120 units/L. If given for pain, use the following pain scale: Mild Pain = Pain Score of 1-3, CPOT 1-2 Moderate Pain = Pain Score of 4-6, CPOT 3-4 Severe Pain = Pain Score of 7-10, CPOT 5-8 Given 06/04/2025 11:18 AM EDT 650 mg Given 06/04/2025 6:01 AM EDT 650 mg Given 06/03/2025 11:15 PM EDT 650 mg aluminum-magnesium hydroxide-simethicone (MAALOX MAX) 400-400-40 MG/5ML suspension 15 mL 15 mL, Oral, Every 4 Hours PRN, Indigestion, Starting on Sat06/02/25 at 1652, Maximum 60 mL in 24 hours. Given 06/03/2025 6:05 PM EDT 15 mL Given 06/03/2025 9:18 AM EDT 15 mL Given 06/02/2025 9:04 PM EDT 15 mL calcium carbonate (TUMS) chewable tablet 500 mg (200 mg elemental) 1 tablet, Oral, Every 4 Hours PRN, Indigestion, Heartburn, Starting on Sat06/02/25 at 1652, One tablet contains 200 mg elemental calcium. Take with food. ceFAZolin 3000 mg IVPB in 100 mL NS (MBP) 3 g, Intravenous, Administer over 30 Minutes, Once, On Sat06/02/25 at 1115, For 1 dose, Caution: Look alike/sound alike drug alert, Indications: Surgical ProphylaxisIndications:Surgical Prophylaxis New Bag 06/02/2025 12:16 PM EDT 3 g cephalexin (KEFLEX) capsule 500 mg 500 mg, Oral, Every 8 Hours Scheduled, First dose on Sat06/02/25 at 1800, For 6 doses, Take with food if GI upset occurs., Indications: - Wharton protocolIndications:- Wharton protocol Given 06/04/2025 6:00 AM EDT 500 mg Given 06/03/2025 9:08 PM EDT 500 mg Given 06/03/2025 2:59 PM EDT 500 mg diphenhydrAMINE (BENADRYL) capsule 25 mg 25 mg, Oral, Every 4 Hours PRN, Itching, Starting on Sat06/02/25 at 1652, Caution: Look alike/sound alike drug alert. This med may be ordered in other forms and routes. Before giving verify the last time the drug was given by any route/form. diphenhydrAMINE (BENADRYL) injection 25 mg 25 mg, Intravenous, Every 4 Hours PRN, Itching, Starting on Sat06/02/25 at 1652, 25 mg may be given IV push over less than 1 minute. Caution: Look alike/sound alike drug alert. This med may be ordered in other forms and routes. Before giving verify the last time the drug was given by any route/form. diphenhydrAMINE (BENADRYL) injection 25 mg 25 mg, Intramuscular, Every 4 Hours PRN, Itching, Starting on Sat06/02/25 at 1652, 25 mg may be given IV push over less than 1 minute. Caution: Look alike/sound alike drug alert. This med may be ordered in other forms and routes. Before giving verify the last time the drug was given by any route/form. docusate sodium (COLACE) capsule 100 mg 100 mg, Oral, 2 Times Daily PRN, Constipation, Starting on Sat06/02/25 at 1652, Swallow whole. Do not open, crush, or chew capsule. Given 06/04/2025 8:20 AM EDT 100 mg Given 06/03/2025 8:54 PM EDT 100 mg Given 06/03/2025 9:17 AM EDT 100 mg enoxaparin sodium (LOVENOX) syringe 60 mg 60 mg, Subcutaneous, Every 12 Hours, First dose on Meghan 06/03/25 at 1700, Request Pharmacy verify spinal/epidural time and start the injection 24 hour from Spinal placement or Epidural cath removal Give subcutaneous in abdomen only. Do not massage site after injection., Indications: VTE ProphylaxisIndications:VTE Prophylaxis Given 06/04/2025 6:00 AM EDT 60 mg Left Lower Abdomen Given 06/03/2025 6:05 PM EDT 60 mg Ri ght Lower Abdomen ibuprofen (ADVIL,MOTRIN) tablet 600 mg 600 mg, Oral, Every 6 Hours, First dose on Meghan 06/03/25 at 2115, Based on patient request - if ordered for moderate or severe pain, provider allows for administration of a medication prescribed for a lower pain scale. Mucous membrane irritant. Do not crush or chew tablet or capsule unless administered through a feeding tube. If given for pain, use the following pain scale: Mild Pain = Pain Score of 1-3, CPOT 1-2 Moderate Pain = Pain Score of 4-6, CPOT 3-4 Severe Pain = Pain Score of 7-10, CPOT 5-8 Given 06/04/2025 8:20 AM EDT 600 mg Given 06/04/2025 2:49 AM EDT 600 mg Given 06/03/2025 8:55 PM EDT 600 mg ketorolac (TORADOL) injection 15 mg 15 mg, Intravenous, Every 6 Hours, First dose on Sat06/02/25 at 2115, For 24 hours, Pharmacy to stagger first dose 3 hours from the first post- Tylenol dose. ([facility]) If given for pain, use the following pain scale: Mild Pain = Pain Score of 1-3, CPOT 1-2 Moderate Pain = Pain Score of 4-6, CPOT 3-4 Severe Pain = Pain Score of 7-10, CPOT 5-8 Given 06/03/2025 2:59 PM EDT 15 mg Given 06/03/2025 9:18 AM EDT 15 mg Given 06/03/2025 3:01 AM EDT 15 mg ketorolac (TORADOL) injection 30 mg 30 mg, Intravenous, Once, On Sat06/02/25 at 1630, For 1 dose, Once in PACU ([facility]) If given for pain, use the following pain scale: Mild Pain = Pain Score of 1-3, CPOT 1-2 Moderate Pain = Pain Score of 4-6, CPOT 3-4 Severe Pain = Pain Score of 7-10, CPOT 5-8Indications:Previous section Given 06/02/2025 3:58 PM EDT 30 mg lactated ringers bolus 1,000 mL 1,000 mL, Intravenous, at 2,000 mL/hr, Administer over 0.5 Hours, Once, On Sat06/02/25 at 1115, For 1 dose, For patients receiving spinal anesthesiaIndications:Previou s section New Bag 06/02/2025 12:15 PM EDT 1,000 mL 2000 mL/hr lanolin cream 1 Application 1 Application, Topical, Every 1 Hour PRN, Dry Skin, nipple pain, Starting on Sat06/02/25 at 1652, May keep at bedside. Given 06/02/2025 6:55 PM EDT 1 Application metroNIDAZOLE (FLAGYL) tablet 500 mg 500 mg, Oral, Every 8 Hours Scheduled, First dose on Sat06/02/25 at 1800, For 6 doses, Caution: Look alike/sound alike drug alert, Indications: , Wharton protocolIndications:Postpartu m, Wharton protocol Given 06/04/2025 6:01 AM EDT 500 mg Given 06/03/2025 9:08 PM EDT 500 mg Given 06/03/2025 2:59 PM EDT 500 mg ondansetron (ZOFRAN) injection 4 mg 4 mg, Intravenous, Every 6 Hours PRN, Nausea, Vomiting, Starting on Sat06/02/25 at 1652, If BOTH ondansetron (ZOFRAN) and promethazine (PHENERGAN) are ordered use ondansetron first and THEN promethazine IF ondansetron is ineffective. ondansetron ODT (ZOFRAN-ODT) disintegrating tablet 4 mg 4 mg, Oral, Every 6 Hours PRN, Nausea, Vomiting, Starting on Sat06/02/25 at 1652, If BOTH ondansetron (ZOFRAN) and promethazine (PHENERGAN) are ordered use ondansetron first and THEN promethazine IF ondansetron is ineffective. Place on tongue and allow to dissolve. oxyCODONE (ROXICODONE) immediate release tablet 10 mg 10 mg, Oral, Every 4 Hours PRN, Severe Pain, Starting on Sat06/02/25 at 1652, For 5 days, Based on patient request - if ordered for moderate or severe pain, provider allows for administration of a medication prescribed for a lower pain scale. If given for pain, use the following pain scale: Mild Pain = Pain Score of 1-3, CPOT 1-2 Moderate Pain = Pain Score of 4-6, CPOT 3-4 Severe Pain = Pain Score of 7-10, CPOT 5-8 Given 06/04/2025 11:19 AM EDT 10 mg Given 06/04/2025 2:49 AM EDT 10 mg Given 06/03/2025 8:54 PM EDT 10 mg oxyCODONE (ROXICODONE) immediate release tablet 5 mg 5 mg, Oral, Every 4 Hours PRN, Moderate Pain, Starting on Sat06/02/25 at 1652, For 5 days, Based on patient request - if ordered for moderate or severe pain, provider allows for administration of a medication prescribed for a lower pain scale. ([facility]) If given for pain, use the following pain scale: Mild Pain = Pain Score of 1-3, CPOT 1-2 Moderate Pain = Pain Score of 4-6, CPOT 3-4 Severe Pain = Pain Score of 7-10, CPOT 5-8 Given 06/03/2025 3:56 PM EDT 5 mg Given 06/03/2025 9:17 AM EDT 5 mg oxytocin (PITOCIN) 30 units in 0.9% sodium chloride 500 mL (premix) 85 mL/hr, Intravenous, Once, On Sat06/02/25 at 1630, For 1 dose, Give 85 ml/hr over 4 hours. Group 2 ([place]) Hazardous Drug - Reproductive Risk Only - See Handling GuideIndications:Previous section New Bag 06/02/2025 3:56 PM EDT 85 mL/hr 85 mL/hr polyethylene glycol (MIRALAX) packet 17 g 17 g, Oral, Daily, First dose on Sat06/02/25 at 1745, Use 4-8 ounces of water, tea, or juice for each 17 gram dose. Given 06/04/2025 8:21 AM EDT 17 g Given 06/03/2025 6:05 PM EDT 17 g vitamin tablet 1 tablet 1 tablet, Oral, Daily, First dose on Sat06/02/25 at 1745 Given 06/04/2025 8:21 AM EDT 1 tablet Given 06/03/2025 9:17 AM EDT 1 tablet simethicone (MYLICON) chewable tablet 80 mg 80 mg, Oral, 4 Times Daily PRN, Flatulence, Starting on Meghna 06/03/25 at 0902 Given 06/03/2025 8:54 PM EDT 80 mg Given 06/03/2025 1:02 PM EDT 80 mg Sod Citrate-Citric Acid (BICITRA) oral solution 30 mL 30 mL, Oral, Once, On Sat06/02/25 at 1115, For 1 dose, For all section patients no more than 20 minutes prior to transport to the OR.Indications:Previous section Given 06/02/2025 12:1 7 PM EDT 30 mL documented in this encounter Active and Recently Administered Medications Times are shown in EDT. Scheduled Medication Order 06/02/2025 06/03/2025 06/04/2025 acetaminophen (TYLENOL) tablet 1,000 mg (COMPLETED) 1,000 mg, Oral, Once, On Sat06/02/25 at 1115, For 1 dose, If given for fever, use fever parameter: fever greater than 100.4 F Based on patient request - if ordered for moderate or severe pain, provider allows for administration of a medication prescribed for a lower pain scale. Do not exceed 4 grams of acetaminophen in a 24 hr period. Max dose of 2gm for AST/ALT greater than 120 units/L. If given for pain, use the following pain scale: Mild Pain = Pain Score of 1-3, CPOT 1-2 Moderate Pain = Pain Score of 4-6, CPOT 3-4 Severe Pain = Pain Score of 7-10, CPOT 5-8 1217 (Given - Provider: Aruna Llamas RN) acetaminophen (TYLENOL) tablet 1,000 mg (COMPLETED)(Linked Group 1) 1,000 mg, Oral, Every 6 Hours, First dose on Sat06/02/25 at 1815, For 24 hours, Pharmacy to schedule 6 hours from pre-op dose. Based on patient request - if ordered for moderate or severe pain, provider allows for administration of a medication prescribed for a lower pain scale. Do not exceed 4 grams of acetaminophen in a 24 hr period. Max dose of 2gm for AST/ALT greater than 120 units/L. If given for pain, use the following pain scale: Mild Pain = Pain Score of 1-3, CPOT 1-2 Moderate Pain = Pain Score of 4-6, CPOT 3-4 Severe Pain = Pain Score of 7-10, CPOT 5-8 1855 (Given - Provider: Su Hou RN)2317 (Given - Provider: Garima Aguilar RN) 0554 (Given - Provider: Garima Aguilar, RN)1233 (Given - Provider: Su Hou RN) acetaminophen (TYLENOL) tablet 650 mg(Linked Group 1) 650 mg, Oral, Every 6 Hours, First dose on Meghan 06/03/25 at 1815, If given for fever, use fever parameter: fever greater than 100.4 F Based on patient request - if ordered for moderate or severe pain, provider allows for administration of a medication prescribed for a lower pain scale. Do not exceed 4 grams of acetaminophen in a 24 hr period. Max dose of 2gm for AST/ALT greater than 120 units/L. If given for pain, use the following pain scale: Mild Pain = Pain Score of 1-3, CPOT 1-2 Moderate Pain = Pain Score of 4-6, CPOT 3-4 Severe Pain = Pain Score of 7-10, CPOT 5-8 1805 (Given - Provider: Su Hou RN)2315 (Given - Provider: Samina Agustin RN) 0601 (Given - Provider: Samina Agustin RN)1118 (Given - Provider: Aruna Moralez RN) ceFAZolin 3000 mg IVPB in 100 mL NS (MBP) (COMPLETED) 3 g, Intravenous, Administer over 30 Minutes, Once, On Sat06/02/25 at 1115, For 1 dose, Caution: Look alike/sound alike drug alert, Indications: Surgical Prophylaxis 1216 (New Bag - Provider: Aruna Llamas RN) cephalexin (KEFLEX) capsule 500 mg 500 mg, Oral, Every 8 Hours Scheduled, First dose on Sat06/02/25 at 1800, For 6 doses, Take with food if GI upset occurs., Indications: - Wharton protocol 1814 (Hold - Provider: Su Hou RN - Reason: Other (Comment Required) - Comment: Patient hasn't been able to eat yet.)2103 (Given - Provider: Garima Aguilar RN) 0554 (Given - Provider: Garima Aguilar, XAVIER)1459 (Given - Provider: Su Hou RN)2108 (Given - Provider: Samina Agustin RN) 0600 (Given - Provider: Samina Agustin RN) enoxaparin sodium (LOVENOX) syringe 60 mg 60 mg, Subcutaneous, Every 12 Hours, First dose on Meghan 06/03/25 at 1700, Request Pharmacy verify spinal/epidural time and start the injection 24 hour from Spinal placement or Epidural cath removal Give subcutaneous in abdomen only. Do not massage site after injection., Indications: VTE Prophylaxis 1805 (Given - Provider: Su Hou RN) 0600 (Given - Provider: Samina Agustin RN) ibuprofen (ADVIL,MOTRIN) tablet 600 mg(Linked Group 2) 600 mg, Oral, Every 6 Hours, First dose on Meghan 06/03/25 at 2115, Based on patient request - if ordered for moderate or severe pain, provider allows for administration of a medication prescribed for a lower pain scale. Mucous membrane irritant. Do not crush or chew tablet or capsule unless administered through a feeding tube. If given for pain, use the following pain scale: Mild Pain = Pain Score of 1-3, CPOT 1-2 Moderate Pain = Pain Score of 4-6, CPOT 3-4 Severe Pain = Pain Score of 7-10, CPOT 5-8 2055 (Given - Provider: Samina Agustin RN) 0249 (Given - Provider: Samina Agustin RN)0820 (Given - Provider: Aruna Moralez RN) ketorolac (TORADOL) injection 15 mg (COMPLETED)(Linked Group 2) 15 mg, Intravenous, Every 6 Hours, First dose on Sat06/02/25 at 2115, For 24 hours, Pharmacy to stagger first dose 3 hours from the first post- Tylenol dose. ([facility]) If given for pain, use the following pain scale: Mild Pain = Pain Score of 1-3, CPOT 1-2 Moderate Pain = Pain Score of 4-6, CPOT 3-4 Severe Pain = Pain Score of 7-10, CPOT 5-8 2212 (Given - Provider: Garima Aguilar RN) 0301 (Given - Provider: Garima Aguilar RN)0918 (Given - Provider: Su Hou RN)1459 (Given - Provider: Su Hou RN) ketorolac (TORADOL) injection 30 mg (COMPLETED) 30 mg, Intravenous, Once, On Sat06/02/25 at 1630, For 1 dose, Once in PACU ([facility]) If given for pain, use the following pain scale: Mild Pain = Pain Score of 1-3, CPOT 1-2 Moderate Pain = Pain Score of 4-6, CPOT 3-4 Severe Pain = Pain Score of 7-10, CPOT 5-8 1558 (Given - Provider: Aruna Llamas, XAVIER) lactated ringers bolus 1,000 mL (COMPLETED) 1,000 mL, Intravenous, at 2,000 mL/hr, Administer over 0.5 Hours, Once, On Sat06/02/25 at 1115, For 1 dose, For patients receiving spinal anesthesia 1215 (New Bag - Provider: Aruna Llamas, XAVIER) metroNIDAZOLE (FLAGYL) tablet 500 mg 500 mg, Oral, Every 8 Hours Scheduled, First dose on Sat06/02/25 at 1800, For 6 doses, Caution: Look alike/sound alike drug alert, Indications: , Wharton protocol 181 (Hold - Provider: Su Hou RN - Reason: Other (Comment Required) - Comment: Patient hasn't been able to eat yet.)2000 (Given - Provider: Garima Aguilar RN) 0554 (Given - Provider: Garima Aguilar RN)1459 (Given - Provider: Su Hou RN)2108 (Given - Provider: Samina Agustin, XAVIER) 0601 (Given - Provider: Samina Agustin, XAVIER) oxytocin (PITOCIN) 30 units in 0.9% sodium chloride 500 mL (premix) (COMPLETED)(Linked Group 3) 85 mL/hr, Intravenous, Once, On Sat06/02/25 at 1630, For 1 dose, Give 85 ml/hr over 4 hours. Group 2 ([place]) Hazardous Drug - Reproductive Risk Only - See Handling Guide 1556 (New Bag - Provider: Aruna Llamas RN) polyethylene glycol (MIRALAX) packet 17 g 17 g, Oral, Daily, First dose on Sat06/02/25 at 1745, Use 4-8 ounces of water, tea, or juice for each 17 gram dose. 181 (Hold - Provider: Su Hou RN - Reason: Other (Comment Required) - Comment: Patient hasn't been able to eat yett.) 1731 (Return to Cabinet - Provider: Su Hou RN - Comment: pt declined)1805 (Given - Provider: Su Hou RN) 0821 (Given - Provider: Aruna Moralez, XAVIER) vitamin tablet 1 tablet 1 tablet, Oral, Daily, First dose on Sat06/02/25 at 1745 1815 (Hold - Provider: Su Hou RN - Reason: Other (Comment Required) - Comment: Patient hasn't been able to eat yet.) 0917 (Given - Provider: Su Hou RN) 0821 (Given - Provider: Aruna Moralez RN) Sod Citrate-Citric Acid (BICITRA) oral solution 30 mL (COMPLETED) 30 mL, Oral, Once, On Sat06/02/25 at 1115, For 1 dose, For all section patients no more than 20 minutes prior to transport to the OR. 1217 (Given - Provider: Aruna Llamas RN) PRN Medication Order 06/02/2025 06/03/2025 06/04/2025 aluminum-magnesium hydroxide-simethicone (MAALOX MAX) 400-400-40 MG/5ML suspension 15 mL(Linked Group 4) 15 mL, Oral, Every 4 Hours PRN, Indigestion, Starting on Sat06/02/25 at 1652, Maximum 60 mL in 24 hours. 2103 (Given - Provider: Garima Aguilar RN) 0918 (Given - Provider: Su Hou RN)180 (Given - Provider: Su Hou RN) benzocaine-menthol (DERMOPLAST) 20-0.5 % topical spray Topical, As Needed, Mild Pain, perineal pain, Starting on Sat06/02/25 at 1652, May leave at bedside. If given for pain, use the following pain scale: Mild Pain = Pain Score of 1-3, CPOT 1-2 Moderate Pain = Pain Score of 4-6, CPOT 3-4 Severe Pain = Pain Score of 7-10, CPOT 5-8 calcium carbonate (TUMS) chewable tablet 500 mg (200 mg elemental)(Linked Group 4) 1 tablet, Oral, Every 4 Hours PRN, Indigestion, Heartburn, Starting on Sat06/02/25 at 1652, One tablet contains 200 mg elemental calcium. Take with food. 2103 (Not Given: See Alt - Provider: Garima Aguilar RN) 917 (Not Given: See Alt - Provider: Su Hou RN)1804 (Not Given: See Alt - Provider: Su Hou RN) carboprost (HEMABATE) injection 250 mcg 250 mcg, Intramuscular, As Needed, hemorrhage, Starting on Sat06/02/25 at 1652, DO NOT administer IV Refrigerate. Use filter needle to withdraw dose. diphenhydrAMINE (BENADRYL) capsule 25 mg(Linked Group 5) 25 mg, Oral, Every 4 Hours PRN, Itching, Starting on Sat06/02/25 at 1652, Caution: Look alike/sound alike drug alert. This med may be ordered in other forms and routes. Before giving verify the last time the drug was given by any route/form. diphenhydrAMINE (BENADRYL) injection 25 mg(Linked Group 5) 25 mg, Intravenous, Every 4 Hours PRN, Itching, Starting on Sat06/02/25 at 1652, 25 mg may be given IV push over less than 1 minute. Caution: Look alike/sound alike drug alert. This med may be ordered in other forms and routes. Before giving verify the last time the drug was given by any route/form. diphenhydrAMINE (BENADRYL) injection 25 mg(Linked Group 5) 25 mg, Intramuscular, Every 4 Hours PRN, Itching, Starting on Sat06/02/25 at 1652, 25 mg may be given IV push over less than 1 minute. Caution: Look alike/sound alike drug alert. This med may be ordered in other forms and routes. Before giving verify the last time the drug was given by any route/form. docusate sodium (COLACE) capsule 100 mg 100 mg, Oral, 2 Times Daily PRN, Constipation, Starting on Sat06/02/25 at 1652, Swallow whole. Do not open, crush, or chew capsule. 2001 (Given - Provider: Garima Aguilar RN) 916 (Given - Provider: Su Hou RN)2053 (Given - Provider: Samina Agustni RN) 0820 (Given - Provider: Aruna Moralez RN) Hydrocortisone (Perianal) (ANUSOL-HC) 2.5 % rectal cream 1 Application 1 Application, Rectal, As Needed, Hemorrhoids, Starting on Sat06/02/25 at 1652, May leave at bedside lanolin cream 1 Application 1 Application, Topical, Every 1 Hour PRN, Dry Skin, nipple pain, Starting on Sat06/02/25 at 1652, May keep at bedside. 1855 (Given - Provider: Su Hou RN) methylergonovine (METHERGINE) injection 200 mcg 200 mcg, Intramuscular, As Needed, hemorrhage, Starting on Sat06/02/25 at 1652, Group 2 ([place]) Hazardous Drug - Reproductive Risk Only - See Handling Guide miSOPROStol (CYTOTEC) tablet 600 mcg 600 mcg, Oral, As Needed, hemorrhage, Starting on Sat06/02/25 at 1652, Group 2 ([place]) Hazardous Drug - Reproductive Risk Only - See Handling Guide ondansetron (ZOFRAN) injection 4 mg(Linked Group 6) 4 mg, Intravenous, Every 6 Hours PRN, Nausea, Vomiting, Starting on Sat06/02/25 at 1652, If BOTH ondansetron (ZOFRAN) and promethazine (PHENERGAN) are ordered use ondansetron first and THEN promethazine IF ondansetron is ineffective. ondansetron ODT (ZOFRAN-ODT) disintegrating tablet 4 mg(Linked Group 6) 4 mg, Oral, Every 6 Hours PRN, Nausea, Vomiting, Starting on Sat06/02/25 at 1652, If BOTH ondansetron (ZOFRAN) and promethazine (PHENERGAN) are ordered use ondansetron first and THEN promethazine IF ondansetron is ineffective. Place on tongue and allow to dissolve. oxyCODONE (ROXICODONE) immediate release tablet 10 mg(Linked Group 7) 10 mg, Oral, Every 4 Hours PRN, Severe Pain, Starting on Sat06/02/25 at 1652, For 5 days, Based on patient request - if ordered for moderate or severe pain, provider allows for administration of a medication prescribed for a lower pain scale. If given for pain, use the following pain scale: Mild Pain = Pain Score of 1-3, CPOT 1-2 Moderate Pain = Pain Score of 4-6, CPOT 3-4 Severe Pain = Pain Score of 7-10, CPOT 5-8 0917 (Not Given: See Alt - Provider: Su Hou RN)1556 (Not Given: See Alt - Provider: Su Hou RN)2053 (Given - Provider: Samina Agustin RN) 024 (Given - Provider: Samina Agustin RN)111 (Given - Provider: Aruna Moralez, XAVIER) oxyCODONE (ROXICODONE) immediate release tablet 5 mg(Linked Group 7) 5 mg, Oral, Every 4 Hours PRN, Moderate Pain, Starting on Sat06/02/25 at 1652, For 5 days, Based on patient request - if ordered for moderate or severe pain, provider allows for administration of a medication prescribed for a lower pain scale. (ROBERT) If given for pain, use the following pain scale: Mild Pain = Pain Score of 1-3, CPOT 1-2 Moderate Pain = Pain Score of 4-6, CPOT 3-4 Severe Pain = Pain Score of 7-10, CPOT 5-8 0917 (Given - Provider: Su Hou RN)155 (Given - Provider: Su Hou RN)2053 (Not Given: See Alt - Provider: Samina Agustin RN) 248 (Not Given: See Alt - Provider: Samina Agustin, XAVIER)1118 (Not Given: See Alt - Provider: Aruna Moralez, RN) simethicone (MYLICON) chewable tablet 80 mg 80 mg, Oral, 4 Times Daily PRN, Flatulence, Starting on Meghan 06/03/25 at 0902 1302 (Given - Provider: Su Hou RN)2053 (Given - Provider: Samina Agustin, RN) witch catie-glycerin (TUCKS) pad Topical, As Needed, Irritation, Hemorrhoids, Starting on Sat06/02/25 at 1652, May leave at bedside. Linked Groups Order Group 1: acetaminophen (TYLENOL) tablet 1,000 mg (COMPLETED)Jump to med 1,000 mg, Oral, Every 6 Hours, First dose on Sat06/02/25 at 1815, For 24 hours, Pharmacy to schedule 6 hours from pre-op dose. Based on patient request - if ordered for moderate or severe pain, provider allows for administration of a medication prescribed for a lower pain scale. Do not exceed 4 grams of acetaminophen in a 24 hr period. Max dose of 2gm for AST/ALT greater than 120 units/L. If given for pain, use the following pain scale: Mild Pain = Pain Score of 1-3, CPOT 1-2 Moderate Pain = Pain Score of 4-6, CPOT 3-4 Severe Pain = Pain Score of 7-10, CPOT 5-8 Followed by acetaminophen (TYLENOL) tablet 650 mgJump to med 650 mg, Oral, Every 6 Hours, First dose on Sat06/03/25 at 1815, If given for fever, use fever parameter: fever greater than 100.4 F Based on patient request - if ordered for moderate or severe pain, provider allows for administration of a medication prescribed for a lower pain scale. Do not exceed 4 grams of acetaminophen in a 24 hr period. Max dose of 2gm for AST/ALT greater than 120 units/L. If given for pain, use the following pain scale: Mild Pain = Pain Score of 1-3, CPOT 1-2 Moderate Pain = Pain Score of 4-6, CPOT 3-4 Severe Pain = Pain Score of 7-10, CPOT 5-8 Group 2: ketorolac (TORADOL) injection 15 mg (COMPLETED)Jump to med 15 mg, Intravenous, Every 6 Hours, First dose on Sat06/02/25 at 2115, For 24 hours, Pharmacy to stagger first dose 3 hours from the first post- Tylenol dose. ([facility]) If given for pain, use the following pain scale: Mild Pain = Pain Score of 1-3, CPOT 1-2 Moderate Pain = Pain Score of 4-6, CPOT 3-4 Severe Pain = Pain Score of 7- 10, CPOT 5-8 Followed by ibuprofen (ADVIL,MOTRIN) tablet 600 mgJump to med 600 mg, Oral, Every 6 Hours, First dose on Sat06/03/25 at 2115, Based on patient request - if ordered for moderate or severe pain, provider allows for administration of a medication prescribed for a lower pain scale. Mucous membrane irritant. Do not crush or chew tablet or capsule unless administered through a feeding tube. If given for pain, use the following pain scale: Mild Pain = Pain Score of 1-3, CPOT 1-2 Moderate Pain = Pain Score of 4-6, CPOT 3-4 Severe Pain = Pain Score of 7-10, CPOT 5-8 Group 3: oxytocin (PITOCIN) 30 units in 0.9% sodium chloride 500 mL (premix) (CANCELED) 650 mL/hr, Intravenous, Once, On Sat06/02/25 at 1630, For 1 dose, Give a 333 ml bolus over 30 minutes (650 ml/hr) followed by 85 ml/hr x 4 hours. Group 2 ([place]) Hazardous Drug - Reproductive Risk Only - See Handling Guide Followed by oxytocin (PITOCIN) 30 units in 0.9% sodium chloride 500 mL (premix) (COMPLETED)Jump to med 85 mL/hr, Intravenous, Once, On Sat06/02/25 at 1630, For 1 dose, Give 85 ml/hr over 4 hours. Group 2 ([place]) Hazardous Drug - Reproductive Risk Only - See Handling Guide Group 4: aluminum-magnesium hydroxide-simethicone (MAALOX MAX) 400-400-40 MG/5ML suspension 15 mLJump to med 15 mL, Oral, Every 4 Hours PRN, Indigestion, Starting on Sat06/02/25 at 1652, Maximum 60 mL in 24 hours. Or calcium carbonate (TUMS) chewable tablet 500 mg (200 mg elemental)Jump to med 1 tablet, Oral, Every 4 Hours PRN, Indigestion, Heartburn, Starting on Sat06/02/25 at 1652, One tablet contains 200 mg elemental calcium. Take with food. Group 5: diphenhydrAMINE (BENADRYL) capsule 25 mgJump to med 25 mg, Oral, Every 4 Hours PRN, Itching, Starting on Sat06/02/25 at 1652, Caution: Look alike/sound alike drug alert. This med may be ordered in other forms and routes. Before giving verify the last time the drug was given by any route/form. Or diphenhydrAMINE (BENADRYL) injection 25 mgJump to med 25 mg, Intravenous, Every 4 Hours PRN, Itching, Starting on Sat06/02/25 at 1652, 25 mg may be given IV push over less than 1 minute. Caution: Look alike/sound alike drug alert. This med may be ordered in other forms and routes. Before giving verify the last time the drug was given by any route/form. Or diphenhydrAMINE (BENADRYL) injection 25 mgJump to med 25 mg, Intramuscular, Every 4 Hours PRN, Itching, Starting on Sat06/02/25 at 1652, 25 mg may be given IV push over less than 1 minute. Caution: Look alike/sound alike drug alert. This med may be ordered in other forms and routes. Before giving verify the last time the drug was given by any route/form. Group 6: ondansetron ODT (ZOFRAN-ODT) disintegrating tablet 4 mgJump to med 4 mg, Oral, Every 6 Hours PRN, Nausea, Vomiting, Starting on Sat06/02/25 at 1652, If BOTH ondansetron (ZOFRAN) and promethazine (PHENERGAN) are ordered use ondansetron first and THEN promethazine IF ondansetron is ineffective. Place on tongue and allow to dissolve. Or ondansetron (ZOFRAN) injection 4 mgJump to med 4 mg, Intravenous, Every 6 Hours PRN, Nausea, Vomiting, Starting on Sat06/02/25 at 1652, If BOTH ondansetron (ZOFRAN) and promethazine (PHENERGAN) are ordered use ondansetron first and THEN promethazine IF ondansetron is ineffective. Group 7: oxyCODONE (ROXICODONE) immediate release tablet 5 mgJump to med 5 mg, Oral, Every 4 Hours PRN, Moderate Pain, Starting on Sat06/02/25 at 1652, For 5 days, Based on patient request - if ordered for moderate or severe pain, provider allows for administration of a medication prescribed for a lower pain scale. (ROBERT) If given for pain, use the following pain scale: Mild Pain = Pain Score of 1-3, CPOT 1-2 Moderate Pain = Pain Score of 4-6, CPOT 3-4 Severe Pain = Pain Score of 7-10, CPOT 5-8 Or oxyCODONE (ROXICODONE) immediate release tablet 10 mgJump to med 10 mg, Oral, Every 4 Hours PRN, Severe Pain, Starting on Sat06/02/25 at 1652, For 5 days, Based on patient request - if ordered for moderate or severe pain, provider allows for administration of a medication prescribed for a lower pain scale. If given for pain, use the following pain scale: Mild Pain = Pain Score of 1-3, CPOT 1-2 Moderate Pain = Pain Score of 4-6, CPOT 3-4 Severe Pain = Pain Score of 7-10, CPOT 5-8 documented in this encounter Care Teams [employer] Relationship Specialty Start Date End Date Provider, [place] [address] PCP - General 04/03/21 documented as of this encounter
--- OUTSIDE RECORDS SUMMARY | 2025-06-02 12:00 | XMS_ITS | Encounter Summary ---
Author Organization [facility] Address [address] [place] [address] Care Team Providers Care Milk Tanker Driver Name Role Phone Provider, No Known Primary Care Provider Unavail able Reason for Visit * Auth/Cert Specialty Diagnoses / Procedures Referred By Mehul gannon Referred To Contact Procedures SECTION REPEAT WITH SALPINGECTOMY Referral ID Status Reason Start Date Expiration Date Visits Re quested Visits Authorized 1 1 Encounter Details Date Type Department Care Team (Late st Contact Info) Description 06/02/2025 12:00 PM EDT - 06/02/2025 1:00 PM EDT Surgery [facility] [address] [place] [address] Ilene Schultz MD [address] [facility] [address] [place] [address] SECTION REPEAT WITH SALPINGECTOMY Social History Tobacco Use Types Packs/Day Years Used Date Smoking Tobacco: Never Smokeless Tobacco: Never Comments:Is not around secon dhand smoke in house or car Alcohol Use Standard Drinks/Week Comments Not Currently 0 (1 standard drink = 0.6 oz pur e alcohol) [facility] Utilities Answer Date Recorded In the past 12 months has [employer], gas, oil, or water company threatened to shut off services in your [...] and heating? Not hard at all 06/02/2025 [facility]ational Stress Questionnaire Answer Date [...] things needed for daily living? No 06/02/2025 [place] Depression Scale Answer Date Recorded [place] Depression Scale Total 10 06/02/2025 The thought [...] GED or equivalent No 06/02/2025 Preferred Language Djiboutian 06/02/2025 PHQ-2 Answer Date Recorded Patient Health Questionnaire-2 Score 0 06/02/2025 Comments No Sex and Gender Information Value Date Recorded Sex Assigned at Not on file Legal Sex Female 9:18 AM EDT Gender Identity Not on file Sexual Orientation Not on file Occupation Industry Job Start Date Job End Date [employer] Not on file Not on file Not o n file documented as of this encounter Last Filed Vital Signs Vital Sign Reading Time Taken Comments Blood Pressure 142/91 06/02/2025 12:12 PM EDT Pulse 89 06/02/2025 12:12 PM EDT Temperature 36.7 C (98.1 F) 06/02/2025 12:12 PM EDT Respiratory Rate 16 06/02/2025 12:12 PM EDT Oxygen Saturation 96% 06/02/2025 12:12 PM EDT Inhaled Oxygen Concentration - - Weight 142 kg (312 lb) 06/02/2025 11:58 AM EDT Height 165.1 cm (5' 5 ) 06/02/2025 11:58 AM EDT Body Mass Index 51.92 06/02/2025 11:58 AM EDT documented in this encounter Functional Status * Question Answer Date of Assessment Author 1. Wish to be (Past 1 Month) No 025 11:51 AM EDT Aruna Llamas, RN 2. Non-Specific Active Suici homar Thoughts (Past 1 Month) No 06/02/2025 11:51 AM EDT Mary Llamas RN * Calculated C-SSRS Risk Score (Lifetime/Recent) Answer Date of Assessment Author Moderate Risk 06/02/2025 11:51 AM EDT Paola Llamas RN * [place] Suicide Severity Rating Scale (Screener/Recent Self-Report) Question Answer Date of Assessment Author 6. Suicidal Behavior (Lifetime) Yes 11:51 AM EDT Aruna Llamas RN 6. Suicidal Behavior (3 Months) No 11:51 AM EDT Aruna Llamas RN documented as of this encounter Discharge Summaries * Ilene Schultz MD - 06/04/2025 8:02 AM EDT [facility] Summary Patient: Fabiola Chavez MR#:[id number] Admission Diagnosis: Problems Addressed this Visit Gravid [...] ibuprofen 600 MG tablet Commonly known as: ADVIL,MOTRIN What changed: when to take this reasons [...] 10 tablet 06/04/2025 9:47 AM EDT 06/04/2025 Vit-Fe Fumarate-FA ( 27-1) 27-1 MG tablet [...] 06/04/2025 7:39 AM EDT 06/04/2025 Name:Fabiola Chavez MR#:[id number] PROGRESS NOTE: Post-Op 2 S/P Subjective 38 [...] Schultz MD 06/04/2025 07:39 EDT * Leora Pavon APRN - 06/03/2025 9:23 AM EDT 06/03/2025 Name:Fabiola Chavez MR#:[id number] PROGRESS NOTE: Post-Op 1 S/P Subjective 38 [...] Renee MD - 06/02/2025 10:23 AM EDT [facility] Obstetric History and Physical No chief [...] PRIMARY BREECH; Surgeon: Ilene Schultz MD; [facility]; Service: Obstetrics/Gynecology; Laterality: N/A; EAR [...] Date of Referral 06/03/25 Person Making Referral senior staff consultant (Courtesy visit for new delivery. Pt [...] on importance of holding her breast while infant nursesso baby can maintain the latch during [...] placing in RFB.Educ on importance of watching infant feed & this position allows her to view baby best.) Signs of Milk Transfer deep jaw excursions noted (w/stimulation. Educ on importance of putting to BR q2-3hrs or on demand. Educ parents the more formula bottles given the less likely infant will want to nurse.) Pain with Feeding [...] right fallopian tube was elevated with a [place] clamp. The enseal was used to sequentially [...] SALPINGECTOMY 06/02/2025 12:16 PM EDT Special Needs TORI 06/06/[id number]/S W/SALLPPH:[phone] documented in this encounter Results * (ABNORMAL) CBC Auto Differential (06/03/2025 9:14 AM EDT) WBC 8.10 3.40 - 10.80 10*3/mm3 06/03/2025 9:54 AM EDT [facility] RBC 4.00 3.77 - 5.28 10*6/mm3 06/03/2025 9:54 AM EDT [facility] Hemoglobin 11.4(L) 12.0 - 15.9 g/dL 06/03/2025 9:54 AM EDT [facility] Hematocrit 35.7 34.0 - 46.6 % 06/03/2025 9:54 AM EDT [facility] MCV 89.3 79.0 - 97.0 fL 06/03/2025 9:54 AM EDT [facility] MCH 28.5 26.6 - 33.0 pg 06/03/2025 9:54 AM EDT [facility] MCHC 31.9 31.5 - 35.7 g/dL 06/03/2025 9:54 AM [facility] RDW 14.7 12.3 - 15.4 % 06/03/2025 9:54 AM [facility] RDW-SD 47.6 37.0 - 54.0 fl 06/03/2025 9:54 AM [facility] MPV 12.1(H) 6.0 - 12.0 fL 06/03/2025 9:54 AM [facility] Platelets 101(L) 140 - 450 10*3/mm3 06/03/2025 9:54 AM [facility] Neutrophil % 71.2 42.7 - 76.0 % 06/03/2025 9:54 AM [facility] Lymphocyte % 19.8 19.6 - 45.3 % 06/03/2025 9:54 AM [facility] Monocyte % 7.4 5.0 - 12.0 % 06/03/2025 9:54 AM [facility] Eosinophil % 0.7 0.3 - 6.2 % 06/03/2025 9:54 AM [facility] Basophil % 0.4 0.0 - 1.5 % 06/03/2025 9:54 AM [facility] Immature Grans % 0.5 0.0 - 0.5 % 06/03/2025 9:54 AM [facility] Neutrophils, Absolute 5.77 1.70 - 7.00 10*3/mm3 06/03/2025 9:54 AM [facility] Lymphocytes, Absolute 1.60 0.70 - 3.10 10*3/mm3 06/03[facility]25 9:[facility] Monocytes, Absolute 0.60 0.10 - 0.90 10*3/mm3 06/03/2025 9:54 AM [facility] Eosinophils, Absolute 0.06 0.00 - 0.40 10*3/mm3 06/03/2025 9:54 AM EDT [facility] Basophils, Absolute 0.03 0.00 - 0.20 10*3/mm3 06/03/2025 9:54 AM EDT [facility] Immature Grans, Absolute 0.04 0.00 - 0.05 10*3/mm3 06/03/2025 9:54 AM EDT [facility] nRBC 0.0 0.0 - 0.2 /100 WBC 06/03/2025 9:54 AM EDT [facility] Blood Venipuncture / Unknown 06/03/2025 9:14 AM EDT 06/03/2025 9:47 AM EDT Ilene Schultz MD LAB BLOOD ORDERABLES Final Re sult [facility]
[address] [place] [address], * Tissue Pathology Exam (06/02/2025 12:56 PM EDT) Case Report Surgical Pathology Report Case: [id number] Authorizing Provider: Ilene Schultz MD Collected: 06/02/2025 12:56 PM Ordering Location: [facility] Received: 06/03/2025 06:09 AM LABOR DELIVERY Pathologist: Grace Bowens MD Specimen: Fallopian Tubes, Bilateral 06/04/2025 9:35 AM EDT [facility] Clinical Information Previous section, 39 weeks, sterilization 06/04/2025 9:35 AM EDT [facility] Final Diagnosis Right and left fallopian tubes, bilateral tubal ligation: Unremarkable complete cross-sections identified No identified malignancy 06/04/2025 9:35 AM EDT [facility] at 0935 EDT Gross Description 1. Fallopian Tubes, Bilateral. Received in formalin labeled FallopTubeBi are 2 tortuous, fimbriated fallopian tubes which are undesignated as to laterality and average 8.5 cm in length by 0.7 cm in diameter. Sectioning of both tubes reveals a grossly unremarkable lumen. Oil Lease Buyer sections to include half of the fimbriated end and cross-sections from both tubes are submitted separately in blocks 1A-1B. LDP 06/04/2025 9:35 AM EDT [facility] Microscopic Description The slides are reviewed and demonstrate histopathologic features supporting the above rendered diagnosis. 06/04/2025 9:35 AM EDT [facility] Tissue Both fallopian tubes / Unknown 06/02/2025 12:56 PM EDT 06/03/2025 6:09 AM EDT us Ilene Schultz MD PATHOLOGY/CYTOLOGY ORDERABLES Final Result [facility]
[address] [place] [address], documented in this encounter Visit Diagnoses Not on filedocumented in this encounter Admitting Diagnoses Diagnosis Term documented in this encounter Administered Medications Inactive Administered Medications - up to 3 most recent administrations Medication Order MAR Action Action Date Dose Rate Site acetaminophen (TYLENOL) tablet 650 mg 650 mg, [...] 200 mg elemental calcium. Take with food. cephalexin (KEFLEX) capsule 500 mg 500 mg, Oral, Every 8 Hours Scheduled, First dose on Sat06/02/25 at 1800, For 6 doses, Take with food if GI upset occurs., Indications: - Carrie protocolIndications:- Carrie protocol Given 06/04/2025 6:00 AM EDT 500 [...] Given 06/03/2025 8:55 PM EDT 600 mg lanolin cream 1 Application 1 Application, Topical, Every 1 Hour PRN, Dry Skin, nipple pain, Starting on Sat06/02/25 at 1652, May keep at bedside. Given 06/02/2025 6:55 PM EDT 1 Application metroNIDAZOLE (FLAGYL) tablet 500 mg 500 mg, Oral, Every 8 Hours Scheduled, First dose on Sat06/02/25 at 1800, For 6 doses, Caution: Look alike/sound alike drug alert, Indications: , Carrie protocolIndications:, Carrie protocol Given 06/04/2025 6:01 AM EDT 500 [...] Given 06/03/2025 9:17 AM EDT 5 mg polyethylene glycol (MIRALAX) packet 17 g 17 [...] Flatulence, Starting on Meghan 06/03/25 at 0902 Given 06/03/2025 8:54 PM EDT 80 mg Given 06/03/2025 1:02 PM EDT 80 mg documented in this encounter Active and Recently [...] Su Hou RN)2317 (Given - Provider: Garima Aguilar, XAVIER) 0554 (Given - Provider: Garima Aguilar, RN)1233 (Given - Provider: Su Hou, XAVIER) acetaminophen (TYLENOL) tablet 650 mg(Linked Group 1) [...] Su Hou RN)2315 (Given - Provider: Samina Agustin, XAVIER) 0601 (Given - Provider: Samina Agustin, RN)1118 (Given - Provider: Aruna Moralez RN) [...] food if GI upset occurs., Indications: - Carrie protocol 1814 (Hold - Provider: Su Hou RN - Reason: Other (Comment Required) - Comment: Patient hasn't been able to eat yet.)2103 (Given - Provider: Garima Aguilar, RN) 0554 (Given - Provider: Garima Aguilar, RN)145 (Given - Provider: Su Hou, RN)2107 (Given - Provider: Samina Agustin, RN) 0600 (Given - Provider: Samina Agustin, XAVIER) enoxaparin sodium (LOVENOX) syringe 60 mg 60 mg, Subcutaneous, Every 12 Hours, First dose on Meghan 06/03/25 at 1700, Request Pharmacy verify spinal/epidural time and start the injection 24 hour from Spinal placement or Epidural cath removal Give subcutaneous in abdomen only. Do not massage site after injection., Indications: VTE Prophylaxis 1804 (Given - Provider: Su Hou RN) 0600 (Given - Provider: Samina Agustin, XAVIER) ibuprofen (ADVIL,MOTRIN) tablet 600 mg(Linked Group 2) [...] = Pain Score of 7-10, CPOT 5-8 2054 (Given - Provider: Samina Agustin RN) 248 (Given - Provider: Samina Agustin, RN)08 (Given - Provider: Aruna Moralez RN) ketorolac (TORADOL) injection 15 mg (COMPLETED)(Linked Group 2) 15 mg, Intravenous, Every 6 Hours, First dose on Sat06/02/25 at 2115, For 24 hours, Pharmacy to stagger first dose 3 hours from the first post- Tylenol dose. ([facility]) If given for pain, use the following pain scale: Mild Pain = Pain Score of 1-3, CPOT 1-2 Moderate Pain = Pain Score of 4-6, CPOT 3-4 Severe Pain = Pain Score of 7-10, CPOT 5-8 2212 (Given - Provider: Garima Aguilar RN) 0301 (Given - Provider: Garima Aguilar RN)0918 (Given - Provider: Su Hou, XAVIER)1459 (Given - Provider: Su Hou, RN) ketorolac (TORADOL) injection 30 mg (COMPLETED) 30 mg, Intravenous, Once, On Sat06/02/25 at 1630, For 1 dose, Once in PACU ([facility]) If given for pain, use the following pain scale: Mild Pain = Pain Score of 1-3, CPOT 1-2 Moderate Pain = Pain Score of 4-6, CPOT 3-4 Severe Pain = Pain Score of 7-10, CPOT 5-8 1558 (Given - Provider: Aruna Llamas RN) lactated ringers bolus 1,000 mL (COMPLETED) 1,000 mL, Intravenous, at 2,000 mL/hr, Administer over 0.5 Hours, Once, On Sat06/02/25 at 1115, For 1 dose, For patients receiving spinal anesthesia 1215 (New Bag - Provider: Aruna Llamas RN) metroNIDAZOLE (FLAGYL) tablet 500 mg 500 mg, Oral, Every 8 Hours Scheduled, First dose on Sat06/02/25 at 1800, For 6 doses, Caution: Look alike/sound alike drug alert, Indications: , Carrie protocol 1814 (Hold - Provider: Su Hou RN - Reason: Other (Comment Required) - Comment: Patient hasn't been able to eat yet.)2000 (Given - Provider: Garima Aguilar RN) 0554 (Given - Provider: Garima Aguilar RN)1459 (Given - Provider: Su Hou, XAVIER)2108 (Given - Provider: Samina Agustin RN) 0601 (Given - Provider: Samina Agustin RN) oxytocin (PITOCIN) 30 units in 0.9% sodium chloride 500 mL (premix) (COMPLETED)(Linked Group 3) 85 mL/hr, Intravenous, Once, On Sat06/02/25 at 1630, For 1 dose, Give 85 ml/hr over 4 hours. Group 2 ([place]) Hazardous Drug - Reproductive Risk Only - See Handling Guide 1556 (New Bag - Provider: Aruna Llamas RN) polyethylene glycol (MIRALAX) packet 17 g 17 g, Oral, Daily, First dose on Sat06/02/25 at 1745, Use 4-8 ounces of water, tea, or juice for each 17 gram dose. 1815 (Hold - Provider: Su Hou RN - Reason: Other (Comment Required) - Comment: Patient hasn't been able to eat yett.) 173 (Return to Cabinet - Provider: Su Hou RN - Comment: pt declined)1805 (Given - Provider: Su Hou RN) 0821 (Given - Provider: Aruna Moralez RN) vitamin tablet 1 tablet 1 tablet, Oral, [...] the OR. 1217 (Given - Provider: Aruna Llamas, XAVIER) PRN Medication Order 06/02/2025 06/03/2025 06/04/2025 aluminum-magnesium hydroxide-simethicone (MAALOX MAX) 400-400-40 MG/5ML suspension 15 mL(Linked Group 4) 15 mL, Oral, Every 4 Hours PRN, Indigestion, Starting on Sat06/02/25 at 1652, Maximum 60 mL in 24 hours. 2103 (Given - Provider: Garima Aguilar RN) 0918 (Given - Provider: Su Hou RN)1805 (Given - Provider: Su Hou RN) benzocaine-menthol [...] See Alt - Provider: Garima Aguilar RN) 0918 (Not Given: See Alt - Provider: Su Hou RN)1805 (Not Given: See Alt - Provider: Su [...] chew capsule. 2001 (Given - Provider: Garima Aguilar, RN) 916 (Given - Provider: Su Hou, RN)2053 (Given - Provider: Samina Agustin, XAVIER) 819 (Given - Provider: Aruna Moralez RN) Hydrocortisone (Perianal) (ANUSOL-HC) 2.5 % rectal cream 1 Application 1 Application, Rectal, As Needed, Hemorrhoids, Starting on Sat06/02/25 at 1652, May leave at bedside lanolin cream 1 Application 1 Application, Topical, Every 1 Hour PRN, Dry Skin, nipple pain, Starting on Sat06/02/25 at 1652, May keep at bedside. 1854 (Given - Provider: Su Hou, XAVIER) methylergonovine (METHERGINE) injection 200 mcg 200 mcg, Intramuscular, As Needed, hemorrhage, Starting on Sat06/02/25 at 1652, Group 2 ([place]) Hazardous Drug - Reproductive Risk Only - See Handling Guide miSOPROStol (CYTOTEC) tablet 600 mcg 600 mcg, Oral, As Needed, hemorrhage, Starting on Sat06/02/25 at 1652, Group 2 ([place]) Hazardous Drug - Reproductive Risk Only - [...] Given: See Alt - Provider: Su Hou RN)155 (Not Given: See Alt - Provider: Su Hou RN)2053 (Given - Provider: Samina Agustin RN) 0249 (Given - Provider: Samina Agustin RN)1119 (Given - Provider: Aruna Moralez RN) oxyCODONE (ROXICODONE) immediate release tablet 5 mg(Linked [...] See Alt - Provider: Samina Agustin RN) 0249 (Not Given: See Alt - Provider: Samina Agustin RN)1119 (Not Given: See Alt - Provider: Aruna Moralez RN) simethicone (MYLICON) chewable tablet 80 mg 80 mg, Oral, 4 Times Daily PRN, Flatulence, Starting on Sat06/03/25 at 0902 1302 (Given - Provider: Su Hou, XAVIER)2054 (Given - Provider: Samina Agustin RN) witch catie-glycerin (TUCKS) pad Topical, As [...] hours from the first post- Tylenol dose. ([facility]) If given for pain, use the [...] 85 ml/hr x 4 hours. Group 2 ([place]) Hazardous Drug - Reproductive Risk Only - See Handling Guide Followed by oxytocin (PITOCIN) 30 units in 0.9% sodium chloride 500 mL (premix) (COMPLETED)Jump to med 85 mL/hr, Intravenous, Once, On Sat06/02/25 at 1630, For 1 dose, Give 85 ml/hr over 4 hours. Group 2 ([place]) Hazardous Drug - Reproductive Risk Only - [...] 5-8 documented in this encounter Care Teams Milk Tanker Driver Relationship Specialty Start Date End Date Provider, [place] [address] PCP - General 04/03/21 documented as of this encounter
--- OUTSIDE RECORDS SUMMARY | 2025-06-02 12:26 | XMS_ITS | Encounter Summary ---
Author Organization [facility] Address [address] [place] [address] Care Team Providers Care Die Grinder Name Role Phone Provider, No Known Primary Care Provider Unavail able Reason for Visit * Auth/Cert Specialty Diagnoses / Procedures Referred By Mehul gannon Referred To Contact Procedures SECTION REPEAT WITH SALPINGECTOMY Referral ID Status Reason Start Date Expiration Date Visits Re quested Visits Authorized 1 1 Encounter Details Date Type Department Care Team (Late st Contact Info) Description 06/02/2025 12:26 PM EDT Anesthesia Event [facility] [address] [place] [address] Carlyn Kaur DO [address] [place] [id number] Anesthesia Record Procedure Summary Procedure Name Responsible Anesthesiologist Anesthesia Start Time Anesthesia Stop Time SECTION REPEAT WITH SALPINGECTOMY (Bilateral) Carlyn Kaur DO 06/02/25 1226 06/02/25 1350 Events Date Time Event Comment 06/02/2025 1125 1222 AN Equip Check 1226 An Start The patient was reevaluated immediately before moderate or deep sedation use and before anesthesia induction. 1229 An Start Data 1238 Spinal Placed 1239 Quick Note %00 ml of LR betty rocky from pre-op infused. LR #2 hung 1304 Baby Delivered 1337 an stop data 1350 Handoff to RN The following has been completed: 1. Identification of Patient, guy family member(s) or patient surrogate 2. Identification of the responsible Practitioner (primary service) 3. Discussion of the pertinent/attainable medical history 4. Discussion of the surgical/procedure course (procedure, reason for surgery, procedure performed) 5. Intraoperative anesthetic management and issue/concerns to include things such as airway, hemodynamics, narcotic, sedation level and paralytic management and intravenous fluids/blood products and urine output during the procedure 6. Expectations/Plans for the early post-procedure period to include things such as anticipated course (anticipatory guidance), complications, need for laboratory or ECG and medication administration 7. Opportunity for questions and acknowledgment of understanding of report from the receiving PACU/ICU team 1350 An Stop Meds Name Total oxytocin (PITOCIN) in sodium chloride 30 units/500 mL (premix) 1,000 mL oxytocin (PITOCIN) injection 6 Units bupivacaine 0.75%-dextrose 8.25% (SENSOR DUTCH) intrathecal injection 1.4 mL fentaNYL (SUBLIMAZE) 0.05 mg/mL 20 mcg ondansetron 2 mg/mL 4 mg Famotidine (PF) 20 MG/2ML 20 mg midazolam 2 MG/2ML 1 mg morphine PF 0.5 MG/ML 0.1 mg ePHEDrine Sulfate (Pressors) 5 MG/ML 17. 5 mg metoclopramide 5 MG/ML 10 mg ePHEDrine injection 25 mg lactated ringers infusion 1,500 mL * Agents Name N2O Air * Blood No blood administrations on file. Lines, Drains, and Airways Type Details Placement Removal Wound 06/02/25; 1256; N; transverse; abdomen; Surgical 06/02/25 1256 by Aruna Llamas RN Peripheral IV Placement Date: 06/02/25; Placement Time: 1214; Catheter Size: 18 G; Orientation: Anterior, Left; Location: Hand; Site Prep: Chlorhexidine; Inserted by: Cee Varner RN; Insertion Attempts: 3; Patient Tolerance: Tolerated poorly; Removal Date: 06/03/25; Removal Time: 211506/02/25 1214 by Aruna Llamas RN 06/03/252115 by Samina Agustin RN Urethral Catheter Placement Date: 06/02/25; Placement Time: 1247; Inserted by: XAVIER Hendrix; Type: Non-latex; Size: 16 Fr.; Balloon Size: 10 mL; Urine Returned: Yes; Removal Date: 06/03/25; Removal Time: 0500; Removal Reason: Per protocol 06/02/25 1247 by Aruna Llamas RN 06/03/25 0500 by Garima Aguilar RN documented in this encounter Social History Tobacco Use Types Packs/Day Years Used Date Smoking Tobacco: Never Smokeless Tobacco: Never Comments:Is not around vladislav cason smoke in house or car Alcohol Use Standard Drinks/Week Comments Not Currently 0 (1 standard drink = 0.6 oz pur e alcohol) [facility] Utilities Answer Date Recorded In the past 12 months has th e Original, gas, oil, or water [employer] threatened to shut off services in your [...] and heating? Not hard at all 06/02/2025 [facility] [place] [facility] Occupat ional Health - Occupational Stress [...] things needed for daily living? 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 Never 06/02/2025 11:46 PM FERMINT Garima Aguilar RN Q2: How many drinks [...] Month) No 025 11:51 AM EDT Aruna Llamas RN 2. Non-Specific Active Suici homar Thoughts (Past 1 Month) No 06/02/2025 11:51 AM EDT Mary Llamas RN * Calculated C-SSRS Risk Score (Lifetime/Recent) Answer Date of Assessment Author Moderate Risk 06/02/2025 11:51 AM EDT Paola Llamas RN * [place] Suicide Severity Rating Scale (Screener/Recent Self-Report) Question Answer Date of Assessment Author 6. Suicidal Behavior (Lifetime) Yes 11:51 AM Aruna Villatoro RN 6. Suicidal Behavior (3 Months) No 11:51 AM EDAruna Geiger RN * Question Answer Date of Assessment Author Little interest or pleasure in doing things Not at all 06/02/2025 11:51 PM Garima Henley RN Feeling down, depressed, or hopeless Not at all 06/02/2025 11:51 PM Garima Henley RN documented as of this encounter OR Notes * Anesthesia Postprocedure Evaluation - Magali Brown CRNA - 06/03/2025 11:36 AM EDT Patient: Fabiola Chavez Procedure Summary Date: 06/02/25 Room / Location: [facility] Anesthesia Start: 1226 Anesthesia Stop: 1350 Procedure: SECTION REPEAT WITH SALPINGECTOMY (Bilateral) Diagnosis: Surgeons: Ilene Schultz MD Provider: Carlyn Kaur DO Anesthesia Type: spinal, ITN ASA Status: 3 Anesthesia Type: spinal, ITN Vitals Vitals Value Taken Time BP 113/58 06/03/25 11:12 Temp 98.1 ??F (36.7 ??C) 06/03/25 11:12 Pulse 76 06/03/25 11:12 Resp 16 06/03/25 11:12 SpO2 99 % 06/02/25 15:59 Vitals shown include unfiled device data. Post Anesthesia Care and Evaluation Patient location during evaluation: bedside Patient participation: complete - patient participated Level of consciousness: awake and alert Pain management: adequate Airway patency: patent Anesthetic complications: No anesthetic complications Cardiovascular status: acceptable Respiratory status: acceptable Hydration status: acceptable Post Neuraxial Block status: Motor and sensory function returned to baseline and No signs or symptoms of PDPH * Anesthesia Postprocedure Evaluation - Carlyn Kaur DO - 06/02/2025 1:49 PM EDT Patient: Fabiola Chavez Procedure Summary Date: 06/02/25 Room / Location: [facility] Anesthesia Start: 1226 Anesthesia Stop: Procedure: SECTION REPEAT WITH SALPINGECTOMY (Bilateral) Diagnosis: Surgeons: Ilene Schultz MD Provider: Carlyn Kaur DO Anesthesia Type: spinal, ITN ASA Status: 3 Anesthesia Type: spinal, ITN Vitals Vitals Value Taken Time BP 104/57 Temp 98 ??F (36.7 ??C) 06/02/25 13:45 Pulse 72 06/02/25 13:48 Resp 16 SpO2 94 % 06/02/25 13:48 Vitals shown include unfiled device data. Post Anesthesia Care and Evaluation Patient location during evaluation: bedside Patient participation: complete - patient participated Level of consciousness: awake and awake and alert Pain score: 0 Pain management: satisfactory to patient Airway patency: patent Anesthetic complications: No anesthetic complications PONV Status: none Cardiovascular status: acceptable, hemodynamically stable and stable Respiratory status: acceptable Hydration status: stable Post Neuraxial Block status: No signs or symptoms of PDPH * Anesthesia Procedure Notes - Magali Brown CRNA - 06/02/2025 1:14 PM EDT Associated Order(s): Spinal Block Spinal Block Patient reassessed immediately prior to procedure Indication:procedure for pain Performed By CHITO/CAA: Magali Brown CRNA Preanesthetic Checklist Completed: patient identified, IV checked, risks and benefits discussed, surgical consent, monitorsand equipment checked, pre-op evaluation and timeout performed Spinal Block Prep: Patient Position:sitting [employer] Supervisor:cap, gloves, mask and sterile barriers Prep:Betadine Patient Monitoring:blood pressure monitoring, continuous pulse oximetry and EKG Spinal Block Procedure Approach:midline Guidance:palpation technique Location:L4-L5 Needle Type:Tamiko Needle Gauge:25 G Placement of Spinal needle event:cerebrospinal fluid aspirated Paresthesia: no Fluid Appearance:clear Post Assessment Patient Tolerance:patient tolerated the procedure well with no apparent complications Complications no * Anesthesia Preprocedure Evaluation - Magali Brown CRNA - 06/02/2025 11:24 AM EDT Anesthesia Evaluation Patient summary reviewed and Nursing notes reviewed NPO Solid Status: > 8 hours NPO Liquid Status: > 8 hours Airway Mallampati: III TM distance: <3 FB Possible difficult intubation Dental Pulmonary (+) ,sleep apnea Cardiovascular (+) hypertension Neuro/Psych (+) headaches (Migraines), psychiatric history Anxiety and Depression GI/Hepatic/Renal/Endo (+) obesity, morbid obesity Musculoskeletal (+) back pain Abdominal Substance History - negative use LONG TERM CARE PHLEBOTOMIST (+) Other Anesthesia Plan ASA 3 spinal and ITN Anesthetic plan, risks, benefits, and alternatives have been provided, discussed and informed consent has been obtained with: patient. CODE STATUS: Code Status (Patient has no pulse and is not breathing): CPR (Attempt to Resuscitate) Medical Interventions (Patient has pulse or is breathing): Full Support Level Of Support Discussed With: Patient documented in this encounter Plan of Treatment Not on file documented as of this encounter Procedures Procedure Name Priority Date/Time Associated Diagnosis Comments [facility] AN SPINAL TRAY Routine 06/02/2025 1:14 PM EDT CA AN SPINAL BLOCK PROCEDURE FOR PAIN Routine 06/02/2025 1:14 PM EDT documented in this encounter Results * CA AN SPINAL BLOCK PROCEDURE FOR PAIN, [facility] AN SPINAL TRAY (06/02/2025 1:14 PM EDT) Narrative Magali Brown CRNA - 06/02/2025 1:14 PM EDT Magali Brown CRNA 06/02/2025 1:14 PM Spinal Block Patient reassessed immediately prior to procedure Indication:procedure for pain Performed By CHITO/CAA: Magali Brown CRNA Preanesthetic Checklist Completed: patient identified, IV checked, risks and benefits discussed, surgical consent, monitors and equipment checked, pre-op evaluation and timeout performed Spinal Block Prep: Patient Position:sitting [employer] Supervisor:cap, gloves, mask and sterile barriers Prep:Betadine Patient Monitoring:blood pressure monitoring, continuous pulse oximetry and EKG Spinal Block Procedure Approach:midline Guidance:palpation technique Location:L4-L5 Needle Type:Tamiko Needle Gauge:25 G Placement of Spinal needle event:cerebrospinal fluid aspirated Paresthesia: no Fluid Appearance:clear Post Assessment Patient Tolerance:patient tolerated the procedure well with no apparent complications Complications no Carlyn Barragan DO ANESTHESIA ORDERAB LES Final Result documented in this encounter Visit Diagnoses Not on filedocumented in this encounter Administered Medications Inactive Administered Medications - up to 3 most recent administrations Medication Order MAR Action Action Date Dose Rate Site bupivacaine in dextrose (MARCAINE SPINAL) 0.75-8.25 % injection Intrathecal, As Needed, Starting on Sat06/02/25 at 1238 Given 06/02/2025 12:38 PM EDT 1.4 mL ePHEDrine injection Intramuscular, As Needed, Starting on Sat06/02/25 at 1248 Given 06/02/2025 12:48 PM EDT 25 mg ePHEDrine Sulfate (Pressors) 5 MG/ML injection Intravenous, As Needed, Starting on Sat06/02/25 at 1248 Given 06/02/2025 1:11 PM EDT 7.5 mg Given 06/02/2025 12:48 PM EDT 10 mg Famotidine (PF) (PEPCID) injection Intravenous, As Needed, Starting on Sat06/02/25 at 1231 Given 06/02/2025 12:31 PM EDT 20 mg fentaNYL citrate (PF) (SUBLIMAZE) injection Intrathecal, As Needed, Starting on Sat06/02/25 at 1238 Given 06/02/2025 12:38 PM EDT 20 mcg lactated ringers infusion Intravenous, Continuous PRN, Starting on Sat06/02/25 at 1239 New Bag 06/02/2025 1:26 PM EDT New Bag 06/02/2025 12:39 PM EDT 125 mL/hr metoclopramide (REGLAN) injection Intravenous, As Needed, Starting on Sat06/02/25 at 1256 Given 06/02/2025 12:56 PM EDT 10 mg midazolam (VERSED) injection Intravenous, As Needed, Starting on Sat06/02/25 at 1231 Given 06/02/2025 12:31 PM EDT 1 mg morphine PF (DURAMORPH) injection Intrathecal, As Needed, Starting on Sat06/02/25 at 1238 Given 06/02/2025 12:38 PM EDT 0.1 mg ondansetron (ZOFRAN) injection Intravenous, As Needed, Starting on Sat06/02/25 at 1231 Given 06/02/2025 12:31 PM EDT 4 mg oxytocin (PITOCIN) 30 units in 0.9% sodium chloride 500 mL (premix) Intravenous, As Needed, Starting on Sat06/02/25 at 1306 Given 06/02/2025 1:27 PM EDT 500 mL Given 06/02/2025 1:06 PM EDT 500 mL oxytocin (PITOCIN) injection Intravenous, As Needed, Starting on Sat06/02/25 at 1306 Given 06/02/2025 1:06 PM EDT 6 Units documented in this encounter Care Teams Die Grinder Relationship Specialty Start Date End Date Provider, [place] [address] PCP - General 04/03/21 documented as of this encounter
[2025-06-05 23:09] VITALS: BP 158/85; PULSE 96; RESP 14; TEMP 36.7; O2SAT 99; BMI 52.0
--- NOTE | 2025-06-05 23:12 | ED_ITS ---
Discharge Plan Disposition Patient Disposition: Home, Self-Care Prescriptions Prescriptions: No Action Galzin 50 mg (zinc) capsule 50 mg PO DAILY PNV [id number]-3 30 mg iron-10 mg iron-1 mg capsule See Rx Instructions PO .COMPLEX Rx Instructions: one a day orally; amoxicillin 500 mg tablet 500 mg PO BID 10 Days Qty: 20 0RF Referrals Follow up/Referrals: Provider,Referral, MD [Primary Care Provider, Medical] - See instructions Activity Restrictions/Add. Instructions Additional Instructions/Restrictions: Recommend following up in short order with your RADIOLOGY NURSE. If you are developing headaches, vision changes, worsening hypertension, recommend rapid reassessment. Clinical Impressions Clinical Impression: Status post , Bilateral edema of lower extremity, Epigastric abdominal pain Instructions Patient Instructions: DI for Acute Abdominal Pain Print Language Print Language: Citizen Of [place] Discharge ED Provider: Bean Stewart General Adult HPI General Chief complaint: Abdominal Pain Stated complaint: as of 06/02, high bp, swelling, abd pain Time Seen by Provider: 06/05/25 23:12 History of Present Illness HPI narrative: 40-year-old female, G2, P2 4 days from delivery. Repeat C- section was otherwise uncomplicated. She denies any history of blood pressure issues during her . Is here for hypertension at home as well as worsening bilateral lower extremity swelling. Reports some epigastric discomfort as well. Denies significant chest pain or shortness of breath. Denies fever at home. Reports her blood pressure was in the 150s at home. She denies any headache or vision changes. Related Data Home Medications ?Medication ?Instructions ?Recorded ?Confirmed vitamins 30 30 mg iron-10 See Rx Instructions PO .COMPLEX 02/21/23 02/06/25 mg iron-folic acid 1 mg-om3 capsule zinc acetate 50 mg (zinc) capsule 50 mg PO DAILY 02/2102/01/25 (Galzin) Previous Rx's ?Medication ?Instructions ?Recorded amoxicillin 500 mg tablet 500 mg PO BID 10 days #20 ta bs 02/06/25 Allergies Allergy/AdvReac Type Severity Reaction Status Date / Time albuterol Allergy Verified 02/06/25 12:38 [facility] Disclaimer: The information contained in this section may have been updated after the patient was seen, as this information can be updated by other users. Medical History (Updated 06/06/25 @ 00:47 by Bean Stewart MD) Excessive daytime sleepiness Iron metabolism disorder Surgical History (Updated 06/06/25 @ 00:47 by Bean Stewart MD) Tubal ligation status History of placement of ear tubes History of section (~06/02/25) Family History , REMEDIAL PROJECT MANAGER) Alcoholism Cancer Thyroid disorder Social History Smoking Status: Never smoker alcohol intake: never substance use type: denies use current occupational status: employed Travel in the last 8 weeks?: None household members: spouse housing: house marital status: Have you lived/traveled outside US in past 30 days?: No Contact w/someone who lives/traveled outside US past 30 days?: No Exposure to someone with infectious disease in past 14 days?: No Do you have a fever (greater than 100.4 F or 38 C)?: No Have you tested positive for COVID-19?: No Exposed to someone with COVID-19 in past 14 days?: No Do you have a sore throat?: No Do you have a cough?: No Do you have any weakness?: No Do you have any diarrhea?: No Are you experiencing any unusual bleeding?: No Do you have any muscle aches/pain?: No Do you have any abdominal pain?: Yes Are you experiencing loss of taste or smell?: No Other Medical History Have you received the Flu Vaccine for this season: No Have you received the Pneumonia Vaccine: No ROS Obtained: Yes All systems reviewed & no additional complaints except as documented Physical Exam General General appearance: alert and in no apparent distress Head Head exam: atraumatic and normocephalic Eye Eye exam: Present normal appearance, PERRL and EOMI ENT ENT exam: Present normal oropharynx and normal external ear exam Neck Neck exam: Present normal inspection and full ROM Chest Chest inspection: Present normal inspection and symmetric chest wall rise; Absent tenderness Respiratory Respiratory exam: Present normal lung sounds bilaterally; Absent respiratory distress Cardiovascular Cardiovascular exam: Present regular rate and normal rhythm Abdominal Exam Abdominal exam: Present soft and distention; Absent tenderness or guarding Extremities Exam Extremities exam: Present normal inspection and edema (Bilateral lower extremity pitting edema); Absent joint swelling Back Exam Back exam: Present normal inspection; Absent tenderness Neurological Exam Neurological exam: Present alert and oriented X3; Absent motor sensory deficit Psychiatric Psychiatric exam: Present normal affect and normal mood Skin Skin exam: Present warm, dry and normal color Lymphatic Lymphatic Findings: no adenopathy Medical Decision Making Medical Records Medical records reviewed: Yes I reviewed the patient's medical records. Screening: Per USPSTF and CDC recommendations, given the prevalence of disease in our region, it is our hospital?s policy to screen for HIV and viral Hepatitis for all patients aged 18 and over and those with ongoing risk factors. Hoang Inquiry Pt receiving controlled substance: No Hoang was queried for this patient: No Vital Signs: 06/05/25 23:09 06/05/25 23:24 06/05/25 23:26 Temperature 98.1 F 98.1 F Temperature Source Oral Oral Pulse Rate 96 H 83 Pulse Rate [Left Apical] 96 H Respiratory Rate 14 16 Blood Pressure 128/85 137/90 Blood Pressure [Left Arm] 158/85 H Blood Pressure Mean 106 Blood Pressure Mean [Left Arm] 109 Blood Pressure Source Automatic Cuff Blood Pressure Position Supine 02 Sat by Pulse Oximetry 99 99 99 Oxygen Delivery Method Room Air Room Air 06/05/25 23:30 06/06/25 00:30 06/06/25 00:48 Temperature 97.9 F Temperature Source Pulse Rate 78 75 Pulse Rate [Left Apical] Respiratory Rate 20 Blood Pressure 128/83 138/84 128/78 Blood Pressure [Left Arm] Blood Pressure Mean 98 109 Blood Pressure Mean [Left Arm] Blood Pressure Source Blood Pressure Position 02 Sat by Pulse Oximetry 98 99 Oxygen Delivery Method Room Air Lab Data Lab results reviewed: Yes I reviewed the patient's lab results. Lab Results 06/05/25 23:23: WBC 8.6, RBC 4.01 L, Hgb 11.5 L, Hct 35.3 L, MCV 88.0, MCH 28.7, MCHC 32.6, RDW 14.4, Plt Count 158, MPV 11.4 H, Neut % (Auto) 69.5, Lymph % (Auto) 21.9, [place] % (Auto) 5.6, Eos % (Auto) 2.2, Baso % (Auto) 0.2, Neut # (Auto) 6.0, Lymph # (Auto) 1.9, [place] # (Auto) 0.5, Eos # (Auto) 0.2, Baso # (Auto) 0.0, Sodium 137, Potassium 4.1, Chloride 107, Carbon Dioxide 25, Anion Gap 9.1, BUN 10, Creatinine 0.50 L, Estimated Creat Clear 137, Estimated GFR 138, Est GFR ( Amer) 167, Glucose 89, Calcium 9.1, Phosphorus 4.1, Magnesium 1.8, Total Bilirubin 0.7, AST 43 H, ALT 32, Alkaline Phosphatase 168 H , Troponin I < 0.01, NT-Pro-B Natriuret Pep 367 H, Total Protein 5.7 L, Albumin 3.2 L, Globulin 2.5, Albumin/Globulin Ratio 1.3, Lipase 99 06/05/25 23:50: Urine Color Yellow, Urine Appearance Clear, Urine pH 6.5, Ur Specific [place] 1.020, Urine Protein Negative, Urine Glucose (UA) Negative, Urine Ketones Trace, Urine Blood 3+ A, Urine Nitrate Negative, Urine Bilirubin Negative, Urine Urobilinogen 1.0, Ur Leukocyte Esterase 1+ A, Urine RBC 10-20, Urine WBC 3-5, Ur Squamous Epith Cells 3-5, Urine Bacteria None, Urine Total Protein 16.0 H 06/05/25 23:23 06/05/25 23:23 Orders (Tests/Meds): ORDERS Category Date Time Status CXR --portable [XR chest portable] Stat Exams 06/05/25 23:18 Completed BNP [NT Pro Brain Natriuretic Pep.] Stat Lab 06/05/25 23:23 Completed CBC w/Auto Diff [Complete Blood Count Auto Diff] Stat Lab 06/05/25 23:23 Completed CMP [Comprehensive Metabolic Panel] Stat Lab 06/05/25 23:23 Completed HIV Combo Stat Lab 06/05/25 23:23 Received Hepatitis C Ab Qual. W/ RFX Stat Lab 06/05/25 23:23 Received Lipase Stat Lab 06/05/25 23:23 Completed Magnesium Stat Lab 06/05/25 23:23 Completed Phosphorous Stat Lab 06/05/25 23:23 Completed Total Protein,Urine Random Stat Lab 06/05/25 23:50 Completed Troponin I Q3H Lab 06/05/25 23:23 Completed UA [Urinalysis and Microscopic] Stat Lab 06/05/25 23:50 Completed Urine Culture Stat Micro 06/05/25 23:50 Received Medical Decision Narrative: 38-year-old female 4 days from uncomplicated presents for hypertension and bilateral lower extremity swelling at home. History was obtained via interactive discussion with patient, family, chart review. On arrival, patient is [afebrile, hemodynamically stable, satting appropriately, alert, oriented x4, GCS 15], moving all extremities spontaneously. Full physical exam performed and significant for bilateral lower extremity edema, no significant abdominal tenderness. Blood pressure on arrival 150 systolic. Repeat blood pressure 125 systolic. Differential includes but is not limited to preeclampsia, heart failure. Workup initiated including CBC CMP BNP troponin mag EKG chest x-ray urine urine protein. On re-evaluation, patient blood pressure spontaneously improved to the 130s systolic, and then the 120s systolic. Laboratory workup independently interpreted by me and significant for minimal elevation in AST and alk phos, normal renal function, no significant electrolyte derangement, no protein in the urine on dipstick. Lipase normal, BNP minimally elevated.. Imaging independently interpreted by me and significant for low lung volumes which accentuates cardiac size. See radiology read for full review of final results. Given epigastric pain, I performed a bedside ultrasound of the right upper quadrant which showed no evidence of cholecystitis or cholelithiasis, though gallbladder is slightly larger than normal. Given patient history, exam and workup, patient's presentation most likely represents mild hypertension and bilateral lower extremity edema. No evidence for preeclampsia on labs, patient has no headache or vision changes. It is possible patient is in the early stages but is not yet clinically evident. I recommend she contact her RADIOLOGY NURSE team tomorrow and continue to monitor her blood pressure. Recommended she return if her blood pressure kiera persistently high or if her swelling worsens. Procedures Risk/Benefits of Procedure(s) Were Explained: Yes Limited Ultrasound Indication:: Limited RUQ ultrasound Indication: Abdominal pain Identified structures: -Gallbladder -Gallbladder wall -Liver Findings: Sonographic Myers sign: Absent Gallstones: Absent Sludge: Absent Pericholecystic fluid: Absent Maximal GB wall thickness (mm): Less than 3 Normal Common bile duct width (mm): Unable to visualize Gallbladder width (cm): 3.5 Normal Gallbladder length (cm): Greater than 10 Abnormal Impression: Mildly distended gallbladder without cholelithiasis or cholecystitis Images were saved to permanent archive The study was technically adequate CPT 07515-75 This study was performed by me, and I personally interpreted all images/videos. Critical Care Critical Care Time Critical Care Time: No
--- NOTE | 2025-06-05 23:18 | XR_ITS ---
PROCEDURE INFORMATION: Exam: XR Chest Exam date and time: 06/05/2025 11:41 PM Age: 40 years old Clinical indication: Other: Generalized swelling; Additional info: Post , generalized swelling TECHNIQUE: Imaging protocol: Radiologic exam of the chest. Views: 1 view. COMPARISON: No relevant prior studies available. FINDINGS: Lungs: See Heart/Mediastinum finding. Pleural spaces: Unremarkable. No pleural effusion. No pneumothorax. Heart/Mediastinum: Low lung volumes are present, accentuating cardiac size and pulmonary markings. Bones/joints: Unremarkable. IMPRESSION: 1. Low lung volumes are present, accentuating cardiac size and pulmonary markings. 2. No convincing acute process identified.
[2025-06-05 23:24] VITALS: BP 128/85; PULSE 96; RESP 16; TEMP 36.7; O2SAT 99
--- OUTSIDE RECORDS SUMMARY | 2025-06-05 23:25 | XMS_ITS | Encounter Summary ---
Author Organization [facility] Address [address] [place] [address] Care Team Providers Care Labor Economics Teacher Name Role Phone Provider, No Known Primary Care Provider Unavail able Encounter Details Date Type Department Care Team (Latest Contact Info) Description 06/02/2025 Travel Social History Tobacco Use Types Packs/Day Years Used Date Smoking Tobacco: Never Smokeless Tobacco: Never Comments:Is not around secon dhand smoke in house or car Alcohol Use Standard Drinks/Week Comments Not Currently 0 (1 standard drink = 0.6 oz pur e alcohol) [facility] Utilities Answer Date Recorded In the past 12 months has sunne.ws electric, gas, oil, or water [employer] threatened to shut off services in your [...] and heating? Not hard at all 06/02/2025 [facility] - Occupational Stress [...] things needed for daily living? 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 Suicidal Behavior (Lifetime) Yes 11:51 AM EDT Farhad, Aruna E, RN 6. Suicidal Behavior (3 Months) No 11:51 AM EDT Aruna Llamas RN * Question Answer Date of Assessment Author Little interest or pleasure in doing things Not at all 06/02/2025 11:51 PM Garima Henley RN Feeling down, depressed, or hopeless Not at all 06/02/2025 11:51 PM Garima Henley RN documented as of this encounter Plan of Treatment Not on file documented as of this encounter Visit Diagnoses Not on filedocumented in this encounter Care Teams Labor Economics Teacher Relationship Specialty Start Date End Date Provider, [place] [address] PCP - General 04/03/21 documented as of this encounter
--- OUTSIDE RECORDS SUMMARY | 2025-06-05 23:25 | XMS_ITS | Clinical Summary ---
Author Organization [facility] Address [address] [place] [address] Care Team Providers Care Manager Embalmer Funeral Director Name Role Phone Unavailable Primary Care Provider [...] Date Last Done Comments [facility]-Depression Screening 1987 [facility]-/Child/Adol SDOH Screenings 1987 [facility]-Varicella Vaccines (1 of 2 - 13+ 2-dose series) 02/03/2000 [facility]- SDOH Screenings 2005 [facility]-Adult SDOH Screenings 2005 [facility]-DTaP,Tdap,and Td Vaccines (1 - Tdap) 2006 [facility]-Hepatitis B Vaccines (1 of 3 - 19+ 3-dose series) 2006 [facility]-Pap Smear 01/01/2012 12/31/2008, 12/01, 10/18/2006, Additional history exists HPV Vaccines (1 - 3-dose SCDM series) 2014 [facility]-Cervical Cancer Screening 2017 [facility]-HPV/Cotest 2017 12/31/2008, 12/01, 10/18/2006, Additional history exists [id number]-[id number]-50 Vaccine ( season) 2025 [facility]-Influenza Vaccine (#1) 2025 [facility]-Zoster Vaccines (1 [...] Narrative SUNQUEST - 01/05/2009 4:27 PM EDT [facility] MR #: [id number] [facility] FABIOLA CHAVEZ [place], [place] [address] 1985 (Age: 23) FW Collect Date: 12/31/2008 00:00 Receipt Date: 01/03/2009 08:53 Page 1 DEPARTMENT OF PATHOLOGY AND LABORATORY MEDICINE CYTOPATHOLOGY REPORT Email: [email or web address] ATTENDING MD/Practitioner: Maira Velasco II, MD Service: [facility] Location: [facility] Reported: 01/05/2009 16:27 Collected: 12/31/2008 00:00 INTERPRETATION A. THIN PREP (CERVICAL/VAGINAL): NEGATIVE FOR INTRAEPITHELIAL LESION OR MALIGNANCY. FUNGAL ORGANISMS CONSISTENT WITH AYS SPECIES. SATISFACTORY FOR EVALUATION; ENDOCERVICAL/ TRANSFORMATION ZONE COMPONENT PRESENT. Electronically Signed Out By NICANOR Ramirez(ASCP) NICANOR Ramirez(ASCP) Cervical cytology is a screening [...] results is suggested (please call Microbiology at [phone] for results). CLINICAL INFORMATION: Menstrual History: Cyclic Date of Last Menstrual Period: 12/22/08 Contraceptive History: control pills SPECIMEN DESCRIPTION: A: THIN PREP (CERVICAL/VAGINAL) THIN PREP PROCESS CELLULAR ENHANCEMENT ICD: 112.1 CANDIDIASIS OF VULVA AND VAGINA V76.2 CERVIX, SPECIAL SCREENING FOR MALIGNANT NEOPLASM F: A; 0[address] [facility] SNOMED CODES: A; [id number] In cases where a pathologist has signed out the report, the service has been rendered in part by a resident. The signing pathologist has performed and is responsible for the reported pathologic evaluation. us Terrence Velasoc MD LAB PATHOLOGY ORDERABLES Final Result [facility] from Last 3 Months or Most Recently Relevant to Health Maintenance
[2025-06-05 23:26] VITALS: BP 137/90; PULSE 83; O2SAT 99
--- OUTSIDE RECORDS SUMMARY | 2025-06-05 23:26 | XMS_ITS | Clinical Summary ---
Author Organization [facility] Address [address] [place] [address] Care Team Providers Care Rn Social Services Name Role Phone Provider, No Known Primary Care Provider Unavail able Allergies Active Allergy Reactions Criticality Noted Date Comments Albuterol Sulfate Other (See Comments) High 03/15/20 16 Made her face swell Medications Vit-Fe Fumarate-FA ( 27-) 27-1 MG tablet tablet Take 1 tablet by mouth Daily. Active Probiotic Product (Risaquad-2) capsule capsule Take 1 capsule by mouth Daily. Active Docosahexaenoi c Acid (DHA ALGAL-900 PO) Take 900 mg by mouth Daily. Active loratadine (CLARITIN) 10 MG tablet Take 1 tablet by mouth Daily. Active calcium carbonate (TUMS) 500 MG chewable tablet Chew 1 tablet Daily As Needed for Indigestion or Heartburn. Active ferrous sulfate 324 (65 Fe) MG tablet delayed-releas e EC tablet Take 1 tablet by mouth 2 (Two) Times a Day With Meals. 90 tablet 05/20/2021 3:11 PM EDT 1 Active lanolin cream Apply topically to the appropriate area as directed Every 1 (One) Hour As Needed for Dry Skin (nipple pain). 1 Active simethicone (MYLICON) 80 MG chewable tablet Chew 1 tablet 4 (Four) Times a Day As Needed for Flatulence. 30 tablet 1 05/20/2021 3:11 PM EDT 1 Active omeprazole (priLOSEC) 40 MG capsule Take 1 capsule by mouth Daily. Active MAGNESIUM GLYCINATE PO Take 240 mg by mouth Daily. Active Iron-Folic Acid-Vit B12 (IRON FORMULA PO) Take 25 mg by mouth Daily. Active ibuprofen (ADVIL,MOTRIN) 600 MG tablet Take 1 tablet by mouth Every 6 (Six) Hours. 30 tablet 06/04/2025 9:47 AM EDT 5 Active oxyCODONE (ROXICODONE) 5 MG immediate release tabletIndicati ons:S/P section Take 1 tablet by mouth Every 6 (Six) Hours As Needed for Moderate Pain for up to 3 days. 10 tablet 06/04/2025 9:47 AM EDT 5 06/07/20 25 Active docusate sodium (Colace) 100 MG capsule Take 1 capsule by mouth 2 (Two) Times a Day. 60 capsule 1 06/04/2025 9:47 AM EDT 5 Active acetaminophen (TYLENOL) 325 MG tablet Take 2 tablets by mouth Every 6 (Six) Hours. 1 06/04/20 25 Discontin ued(Stop Taking at Discharge ) docusate sodium 100 MG capsule Take 1 capsule by mouth 2 (Two) Times a Day As Needed for Constipation. 30 capsule 1 05/20/2021 3:11 PM EDT 1 06/04/20 25 Discontin ued(Stop Taking at Discharge ) ibuprofen (ADVIL,MOTRIN) 600 MG tablet Take 1 tablet by mouth Every 6 (Six) Hours As Needed for Mild Pain . 60 tablet 05/20/2021 3:11 PM EDT 1 06/04/20 25 Discontin ued(Stop Taking at Discharge ) Active Problems Problem Noted Date Diagnosed Date S/P section 06/02/2025 Super obesity 06/02/2025 Maternal care for breech presentation, single ge station 05/17/2021 S/P section 05/17/2021 Obstructive sleep apnea, adult 03/15/2016 Periodic limb movement disorder 03/15/2016 Restless legs syndrome (RLS) 03/15/2016 Morbid obesity 03/15/2016 Polycystic ovarian syndrome 03/15/2016 Hypertension 03/15/2016 Anxiety 03/15/2016 Snoring Resolved Problems Problem Noted Date Diagnosed Date Resolved Date Term 05/28/2025 06/02/2025 Term 05/13/2021 05/17/2021 04/03/2021 05/19/2021 Encounters Date Type Department Care Team Description 06/02/2025 12:26 PM EDT Anesthesia Event [facility] DELIVERY [address] [place] [address] Kassandra Murphylarry Carlyn GuevaraDO 06/02/2025 12:00 PM EDT - 06/02/2025 1:00 PM EDT Surgery [facility] DELIVERY [address] [place] [address] Ilene Schultz MD SECTION REPEAT WITH SALPINGECTOMY 06/02/2025 10:16 AM EDT - 06/04/2025 11:45 AM EDT Hospital Encounter [facility] MOTHER BABY 4A [address] [place] [address] Ilene Schultz MD S/P section (Primary Dx); Previous section Discharge Disposition: Home or Self Care 06/02/2025 Travel 05/31/2025 3:30 PM EDT Pre-Admission Testing [facility] PREADMISSION T [address] [place] [address] Previous section 05/31/2025 Travel 05/28/2025 Prep for Surgery [facility] [address] [place] [address] Ilene Schultz MD Previous section (Primary Dx); Morbid obesity with BMI of 50.0-59.9, adult; Term 03/19/2025 9:20 AM EDT Lab [facility]AT[facility] [address] [place] [address] 24 weeks gestation of 03/19/2025 Travel from Last 3 Months Immunizations Immunization [...] drink = 0.6 oz pur e alcohol) [facility] Utilities Answer Date Recorded In the past 12 months has th e [employer], gas, oil, or water [employer] threatened to shut off services in your [...] and heating? Not hard at all 06/02/2025 [facility] - Occupational [...] things needed for daily living? 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 Not on file Not [...] Mass Index 51.92 06/02/2025 11:58 AM EDT Plan of Treatment Health Maintenance Due Date Last Done Comments Annual Gynecologic Pelvic an d Breast Exam 1985 ANNUAL PHYSICAL 04/04/2017 TDAP/TD VACCINES (2 - Td or Tdap) 04/14/2035 04/14/2025 HEPATITIS C SCREENING Completed 11/13/2024 , 11/09/2020, 09/03/2018 INFLUENZA VACCINE Completed 05/06/2025, 06/08/2022, 05/20/2021 Pneumococcal Vaccine 0-49 Aged Out No longer eligible based on patient's age to complete this topic Procedures Procedure Name Priority Date/Time Associated Diagnosis Comments CBC AND DIFFERENTIAL Timed 06/03/2025 9:14 AM EDT CBC WITH AUTO DIFFERENTIAL Timed 06/03/2025 9:14 AM EDT HC BH AN SPINAL TRAY Routine 06/02/2025 1:14 PM EDT NJ AN SPINAL BLOCK PROCEDURE FOR PAIN Routine 06/02/2025 1:14 PM EDT TISSUE PATHOLOGY EXAM Routine 06/02/2025 12:56 PM EDT SECTION REPEAT WITH SALPINGECTOMY 06/02/2025 12:16 PM EDT Special Needs BORDERSEDD 06/06/[id number]/S W/SALLPPH:[phone] TYPE AND SCREEN Routine 05/31/2025 3:34 PM EDT Previous section CBC (NO DIFF) Routine 05/31/2025 3:34 PM EDT Previous section TREPONEMA PALLIDUM AB W/REFLEX RPR STAT 05/31/2025 3:34 PM EDT ANTIBODY SCREEN Routine 03/19/2025 10:27 AM EDT [...] 10:27 AM EDT 24 weeks gestation of HEPATITIS C ANTIBODY Routine 11/13/2024 10:51 AM EDT care, subsequent , first trimester from Last 3 Months or Most Recently Relevant to Health Maintenance Results * (ABNORMAL) CBC Auto Differential (06/03/2025 9:14 AM EDT) WBC 8.10 3.40 - 10.80 10*3/mm3 06/03/2025 9:54 AM EDT [facility] RBC 4.00 3.77 - 5.28 10*6/mm3 06/03/2025 9:54 AM EDT [facility] Hemoglobin 11.4(L) 12.0 - 15.9 g/dL 06/03/2025 9:54 AM EDT [facility] Hematocrit 35.7 34.0 - 46.6 % 06/03/2025 9:54 AM EDT [facility] MCV 89.3 79.0 - 97.0 fL 06/03/2025 9:54 AM EDT [facility] MCH 28.5 26.6 - 33.0 pg 06/03/2025 9:54 AM [facility] MCHC 31.9 31.5 - 35.7 g/dL 06/03/2025 9:54 AM [facility] RDW 14.7 12.3 - 15.4 % 06/03/2025 9:54 AM [facility] RDW-SD 47.6 37.0 - 54.0 fl 06/03/2025 9:54 AM [facility] MPV 12.1(H) 6.0 - 12.0 fL 06/03/2025 9:54 AM [facility] Platelets 101(L) 140 - 450 10*3/mm3 06/03/2025 9:54 AM [facility] Neutrophil % 71.2 42.7 - 76.0 % 06/03/2025 9:54 AM [facility] Lymphocyte % 19.8 19.6 - 45.3 % 06/03/2025 9:54 AM [facility] Monocyte % 7.4 5.0 - 12.0 % 06/03/2025 9:54 AM [facility] Eosinophil % 0.7 0.3 - 6.2 % 06/03/2025 9:54 AM [facility] Basophil % 0.4 0.0 - 1.5 % 06/03/2025 9:54 AM [facility] Immature Grans % 0.5 0.0 - 0.5 % 06/03/2025 9:54 AM [facility] Neutrophils, Absolute 5.77 1.70 - 7.00 10*3/mm3 06/03/2025 9:[facility] Lymphocytes, Absolute 1.60 0.70 - 3.10 10*3/mm3 06/03/2025 9:54 [facility] Monocytes, Absolute 0.60 0.10 - 0.90 10*3/mm3 06/03/2025 9:54 [facility] Eosinophils, Absolute 0.06 0.00 - 0.40 10*3/mm3 06/03/2025 9:54 AM EDT [facility] Basophils, Absolute 0.03 0.00 - 0.20 10*3/mm3 06/03/2025 9:54 AM EDT [facility] Immature Grans, Absolute 0.04 0.00 - 0.05 10*3/mm3 06/03/2025 9:54 AM EDT [facility] nRBC 0.0 0.0 - 0.2 /100 WBC 06/03/2025 9:54 AM EDT [facility] Blood Venipuncture / Unknown 06/03/2025 9:14 AM EDT 06/03/2025 9:47 AM EDT Ilene Schultz MD LAB BLOOD ORDERABLES Final Re sult [facility]
[address] [place] [address], * [place] AN SPINAL BLOCK PROCEDURE FOR PAIN, HC BH AN SPINAL TRAY (06/02/2025 1:14 PM EDT) [...] timeout performed Spinal Block Prep: Patient Position:sitting Racetrack Steward:cap, gloves, mask and sterile barriers Prep:Betadine Patient Monitoring:blood pressure monitoring, continuous pulse oximetry and EKG Spinal Block Procedure Approach:midline Guidance:palpation technique Location:L4-L5 Needle Type:Tamiko Needle Gauge:25 G Placement of Spinal needle event:cerebrospinal fluid aspirated Paresthesia: no Fluid Appearance:clear Post Assessment Patient Tolerance:patient tolerated the procedure well with no apparent complications Complications no Carlyn Barragan DO ANESTHESIA ORDERAB LES Final Result * Tissue Pathology Exam (06/02/2025 12:56 PM EDT) Case Report Surgical Pathology Report Case: [id number] Authorizing Provider: Ilene Schultz MD Collected: 06/02/2025 12:56 PM Ordering Location: [facility] Received: 06/03/2025 06:09 AM LABOR DELIVERY Pathologist: Grace Bowens MD Specimen: Fallopian Tubes, Bilateral 06/04/2025 9:35 AM EDT [facility] Clinical Information Previous section, 39 weeks, sterilization 06/04/2025 9:35 AM EDT [facility] Final Diagnosis Right and left fallopian tubes, bilateral tubal ligation: Unremarkable complete cross-sections identified No identified malignancy 06/04/2025 9:35 AM EDT [facility] at 0935 EDT Gross Description 1. Fallopian Tubes, Bilateral. Received in formalin labeled FallopTubeBi are 2 tortuous, fimbriated fallopian tubes which are undesignated as to laterality and average 8.5 cm in length by 0.7 cm in diameter. Sectioning of both tubes reveals a grossly unremarkable lumen. Natural Sciences Department Chair sections to include half of the fimbriated end and cross-sections from both tubes are submitted separately in blocks 1A-1B. LDP 06/04/2025 9:35 AM EDT [facility] Microscopic Description The slides are reviewed and demonstrate histopathologic features supporting the above rendered diagnosis. 06/04/2025 9:35 AM EDT [facility] Tissue Both fallopian tubes / Unknown 06/02/2025 12:56 PM EDT 06/03/2025 6:09 AM EDT us Ilene Schultz MD PATHOLOGY/CYTOLOGY ORDERABLES Final Result [facility]
[address] [place] [address], * Treponema pallidum AB w/Reflex RPR (05/31/2025 3:34 PM EDT) Only the most recent of2 resultswithin the time period is included. [facility] Treponemal AB Total Non-Reacti ve Non-React mahin 05/31/2025 11:23 PM EDT [facility] Blood Venipuncture / Unknown 05/31/2025 3:34 PM EDT 05/31/2025 4:03 PM EDT Narrative [facility] - 05/31/2025 11:23 PM EDT Reactive results will reflex RPR testing. us Ilene Schultz MD LAB BLOOD ORDERABLES Final Re sult [facility]
[address] [place] [address], * (ABNORMAL) CBC (No Diff) (05/31/2025 3:34 PM EDT) Only the most recent of2 resultswithin the time period is included. [facility] WBC 8.04 3.40 - 10.80 10*3/mm3 05/31/2025 4:07 PM EDT [facility] RBC 4.44 3.77 - 5.28 10*6/mm3 05/31/2025 4:07 PM EDT [facility] Hemoglobin 12.6 12.0 - 15.9 g/dL 05/31/2025 4:07 PM EDT [facility] Hematocrit 37.8 34.0 - 46.6 % 05/31/2025 4:07 PM EDT [facility] MCV 85.1 79.0 - 97.0 fL 05/31/2025 4:07 PM EDT [facility] MCH 28.4 26.6 - 33.0 pg 05/31/2025 4:07 PM EDT [facility] MCHC 33.3 31.5 - 35.7 g/dL 05/31/2025 4:07 PM EDT [facility] RDW 14.3 12.3 - 15.4 % 05/31/2025 4:07 PM EDT [facility] RDW-SD 43.8 37.0 - 54.0 fl 05/31/2025 4:07 PM EDT [facility] MPV 12.1(H) 6.0 - 12.0 fL 05/31/2025 4:07 PM EDT [facility] Platelets 133(L) 140 - 450 10*3/mm3 05/31/2025 4:07 PM EDT [facility] Blood Venipuncture / Unknown 05/31/2025 3:34 PM EDT 05/31/2025 4:03 PM EDT us Ilene Schultz MD LAB BLOOD ORDERABLES Final Re sult Performing Organization Address City/[facility]/ZIP Co de Phone Number [facility]
[address] [place] [address], * Type and screen (05/31/2025 3:34 PM EDT) ABO Type O 05/31/2025 4:41 PM EDT [facility] LABORATORY RH type Positive 05/31/2025 4:41 PM EDT [facility] Antibody Screen Negative 05/31/2025 4:41 PM EDT [facility] T&S Expiration Date 06/03/2025 11:59:59 PM 05/31/2025 4:41 PM EDT [facility] Blood Venipuncture / Unknown 05/31/2025 3:34 PM EDT 05/31/2025 3:59 PM EDT us Ilene Schultz MD BLOOD BANK TEST ORDERABLES Ed ited Result - Final Performing Organization Address City/[facility]/ZIP Co de Phone Number [facility]
[address] [place] [address], * POCT Post Glucose Tolerance (03/19/2025 10:27 AM EDT) Blood Venipuncture / Unknown 03/19/2025 10:27 AM EDT 03/19/2025 10:33 AM EDT us Leora Pavon APRN POINT OF CARE TEST ORDERAB LES Final Result Performing Organization Address [facility] Co de Phone Number [facility]
[address] [place] [address], [place] [phone] * Glucose, Post 50 Gm Glucola (03/19/2025 10:27 AM EDT) [facility] Gestational GCT 125 65 - 139 mg/dL 03/19/2025 11:05 AM EDT [facility] Blood Venipuncture / Unknown 03/19/2025 10:27 AM EDT 03/19/2025 10:33 AM EDT us Leora Pavon APRN LAB BLOOD ORDERABLES Final Result Performing Organization Address [facility] Co de Phone Number [facility]
[address] [place] [address], [place] [phone] * Antibody Screen (03/19/2025 10:27 AM EDT) [facility] Antibody Screen Negative 03/19/2025 11:28 AM EDT [facility] Blood Venipuncture / Unknown 03/19/2025 10:27 AM EDT 03/19/2025 10:33 AM EDT us Leora Pavon APRN BLOOD BANK TEST ORDERABLES Final Result Performing Organization Address [facility] de Phone Number [facility] LABORATORY
[address] [place] [address], [place] [phone] * Hepatitis C Antibody (11/13/2024 10:51 AM EDT) [facility] Hepatitis C Ab Non-Reacti ve Non-Reacti ve 11/13/2024 3:07 PM EDT [facility] Blood Venipuncture / Unknown 11/13/2024 10:51 AM EDT 11/13/2024 10:55 AM EDT Ilene Schultz MD LAB BLOOD ORDERABLES Final Re sult [facility]
[address] [place] [address], from Last 3 Months or Most Recently Relevant to Health Maintenance Insurance [employer] Advance Directives * CPR (Attempt to Resuscitate) (Latest Code Status on File) Date Activated Date Inactivated Comments 06/02/2025 4:53 PM 06/04/2025 1:55 PM Question Answer Comments Code Status (Patient has no pulse and is not breathing): CPR (Attempt to Resuscitate) Medical Interventions (Patie nt has pulse or is breathing): Full * CPR (Attempt to Resuscitate) Date Activated Date Inactivated Comments 06/02/2025 10:27 AM 06/02/2025 4:53 PM Question Answer Comments Code Status (Patient has no pulse and is not breathing): CPR (Attempt to Resuscitate) Medical Interventions (Patie nt has pulse or is breathing): Full Support Level Of Support Discussed With: Patient * CPR (Attempt to Resuscitate) Date Activated Date Inactivated Comments 05/17/2021 5:28 [...] pulse or is breathing): Full Care Teams Rn Social Services Relationship Specialty Start Date End Date Provider, [place] [address] PCP - General 04/03/21
--- OUTSIDE RECORDS SUMMARY | 2025-06-05 23:26 | XMS_ITS | Encounter Summary ---
Author Organization [facility] Address [address] [place] [address] Care Team Providers Care Smoking Tobacco Cutter Operator Name Role Phone Provider, No Known Primary Care Provider Unavail able Encounter Details Date Type Department Care Team (Late st Contact Info) Description 05/28/2025 Prep for Surgery [facility] [address] [place] [address] Ilene Schultz MD [address] [facility] [address] [place], [place] [id number] Previous section (Primary Dx); Morbid obesity with BMI of 50.0-59.9, adult; Term Social History Tobacco Use Types Packs/Day Years Used Date Smoking Tobacco: Never Smokeless Tobacco: Never Comments:Is not around secon dhand smoke in house or car Alcohol Use Standard Drinks/Week Comments Not Currently 0 (1 standard drink = 0.6 oz pur e alcohol) [place] Depression Scale Answer Date Recorded [place] Depression Scale Total 2 05/18/2021 The thought of harming myself has occurred to me . 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 Not o n file documented as of this encounter Plan of Treatment Not on file documented as of this encounter Results * Type and screen (05/31/2025 3:34 PM EDT) ABO Type O 05/31/2025 4:41 PM EDT [facility] RH type Positive 05/31/2025 4:41 PM EDT [facility] Antibody Screen Negative 05/31/2025 4:41 PM EDT [facility] T&S Expiration Date 06/03/2025 11:59:59 PM 05/31/2025 4:41 PM EDT [facility] Blood Venipuncture / Unknown 05/31/2025 3:34 PM EDT 05/31/2025 3:59 PM EDT Ilene Schultz MD BLOOD BANK TEST ORDERABLES Ed ited Result - Final [facility]
[address] [place] [address], * (ABNORMAL) CBC (No Diff) (05/31/2025 3:34 PM EDT) WBC 8.04 3.40 - 10.80 10*3/mm3 05/31/2025 4:07 PM EDT [facility] RBC 4.44 3.77 - 5.28 10*6/mm3 05/31/2025 4:07 PM EDT [facility] Hemoglobin 12.6 12.0 - 15.9 g/dL 05/31/2025 4:07 PM EDT [facility] Hematocrit 37.8 34.0 - 46.6 % 05/31/2025 4:07 PM EDT [facility] MCV 85.1 79.0 - 97.0 fL 05/31/2025 4:07 PM EDT [facility] MCH 28.4 26.6 - 33.0 pg 05/31/2025 4:07 PM EDT [facility] MCHC 33.3 31.5 - 35.7 g/dL 05/31/2025 4:07 PM EDT [facility] RDW 14.3 12.3 - 15.4 % 05/31/2025 4:07 PM EDT [facility] RDW-SD 43.8 37.0 - 54.0 fl 05/31/2025 4:07 PM EDT [facility] MPV 12.1(H) 6.0 - 12.0 fL 05/31/2025 4:07 PM EDT [facility] Platelets 133(L) 140 - 450 10*3/mm3 05/31/2025 4:07 PM EDT [facility] Blood Venipuncture / Unknown 05/31/2025 3:34 PM EDT 05/31/2025 4:03 PM EDT us Ilene Schultz MD LAB BLOOD ORDERABLES Final Re sult [facility]
[address] [place] [address], [place] [phone] documented in this encounter Visit Diagnoses Diagnosis Previous section- Primary Other postprocedural status Morbid obesity with BMI of 50.0-59.9, adult Term documented in this encounter Care Teams Smoking Tobacco Cutter Operator Relationship Specialty Start Date End Date Provider, [place] [address] PCP - General 04/03/21 documented as of this encounter
--- OUTSIDE RECORDS SUMMARY | 2025-06-05 23:26 | XMS_ITS | Encounter Summary ---
Author Organization [facility] Address [address] [place] [address] Care Team Providers Care Chip Person Name Role Phone Provider, No Known Primary Care Provider Unavail able Encounter Details Date Type Department Care Team (Latest Contact Info) Description 05/31/2025 Travel Social History Tobacco Use Types Packs/Day Years Used Date Smoking Tobacco: Never Smokeless Tobacco: Never Comments:Is not around secon dhand smoke in house or car Alcohol Use Standard Drinks/Week Comments Not Currently 0 (1 standard drink = 0.6 oz pur e alcohol) [place] Depression Scale Answer Date Recorded [place] Depression Scale Total 2 05/18/2021 The thought of harming myself has occurred to me . 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
[2025-06-05 23:30] VITALS: BP 128/83; PULSE 78; O2SAT 98
[2025-06-05 23:41] LABS: Hematocrit 35.3 % (37.0-47.0); Hemoglobin 11.5 g/dL (12.2-16.2); Immature Granulocytes % 0.6 %; Mean Corpuscular HGB Conc 32.6 g/dL (31.8-35.4); Mean Corpuscular Hemoglobin 28.7 pg (27.0-31.2); Mean Corpuscular Volume 88.0 fl (81-99); Nucleated Red Blood Cells % 0 %; Platelet Count 158 K/mm3 (142-424); Red Blood Count 4.01 M/mm3 (4.20-5.40); Red Cell Distribution Width-SD 46.4 fL; White Blood Count 8.6 K/mm3 (4.8-10.8)
[2025-06-05 23:53] LABS: Alanine Aminotransferase 32 U/L (12-78); Albumin Level 3.2 g/dl (3.5-5.0); Albumin/Globulin Ratio 1.3 (1.1-1.8); Alkaline Phosphatase 168 U/L (38-126); Anion Gap 9.1 mEq/L (5-15); Aspartate Amino Transferase 43 U/L (14-36); Bilirubin,Total 0.7 mg/dl (0.2-1.3); Blood Urea Nitrogen 10 mg/dl (7-17); Calcium 9.1 mg/dl (8.4-10.2); Carbon Dioxide 25 mmol/L (22.0-30.0); Chloride 107 mmol/L (98-107); Creatinine Clearance Estimated 137 mL/min (50-200); Creatinine,Serum 0.50 mg/dl (0.52-1.04); Estimated Glomerular Filt Rate 138 ml/min (>60); GFR (African American) 167 ML/MIN (>60); Globulin 2.5 g/dL (1.3-3.2); Glucose 89 mg/dl (74-100); Lipase 99 U/L (23-300); Magnesium 1.8 mg/dl (1.6-2.3); Phosphorous 4.1 mg/dl (2.5-4.5); Potassium 4.1 mmoL/L (3.5-5.1); Sodium 137 mmol/L (136-145); Total Protein,Serum 5.7 g/dl (6.3-8.2)
[2025-06-05 23:56] LABS: Microscopic, Urine URINE MICROSCOPIC (MICROSCOPIC)
[2025-06-05 23:59] LABS: Bilirubin,Urine Negative (Negative); Color,Urine YELLOW (Yellow); Glucose,Urine (UA) Negative (Negative); Ketones,Urine TRACE (Negative); Leukocyte Esterase,Urine 1+ (Negative); PH,Urine 6.5 (5.0-8.5); Protein,Urine Negative (Negative); Specific Gravity, Urine 1.020 (1.005-1.030); Urobilinogen,Urine 1.0 EU/dl (0.2)
[2025-06-06 00:05] LABS: NT Pro Brain Natriuretic Pep. 367 pg/mL (0-125); Troponin I < 0.01 ng/ml (0.00-0.034)
[2025-06-06 00:30] VITALS: BP 138/84; O2SAT 99
[2025-06-06 00:48] VITALS: BP 128/78; PULSE 75; RESP 20; TEMP 36.6; O2SAT 99
[2025-06-06 05:11] LABS: Hepatitis C Ab Qual. W/ RFX NEGATIVE (Negative)
--- NOTE | 2025-06-09 10:24 | PC.NURSE ---
urine culture discussed with dr armendariz, rx for cefdinir sent to [facility]. contacted pt will burr picker rx.
== END 2025-06-06 00:53 | disposition home or self-care (01) ==
PROVIDERS: Emergency Provider Emergency Medicine
DX: O99.893 Other specified diseases and conditions complicating puerperium (principal); R10.13 Epigastric pain; R22.43 Localized swelling, mass and lump, lower limb, bilateral; N39.0 Urinary tract infection, site not specified
CPT/HCPCS: 71045; 80053; 81001; 83690; 83735; 83880; 84100; 84156; 84484; 85025; 86803; 87086; 87088; 87186; 87389; 99285

== ENCOUNTER 2025-08-08 18:00 | Outpatient (CLI) | payer OTHER, SELFPAY | END 2025-08-08 23:59 | disposition home or self-care (01) | LOC: LAB.DROPOF 08-16 12:09 | PROVIDERS: Visit Provider Nurse Practitioner | DX: J02.9 Acute pharyngitis, unspecified (principal) | CPT/HCPCS: 87070 ==